=== PATIENT | male | born 1950 | race Caucasian/White ===

== ENCOUNTER 2024-04-14 17:57 | Inpatient (IN) | payer MEDICARE, OTHER, SELFPAY ==
--- NOTE | ~2024-04-14 | CT_ITS ---
CLINICAL HISTORY: epigastric pain CT abdomen and pelvis with contrast Comparison: None Findings: No consolidation or effusion. There is a small right renal cyst and small left renal cysts are also noted. Stomach is distended with fluid and there is suspected edema/inflammation in the gastric antrum and pyloric region. The patient is status post right anterior abdominal wall and right inguinal hernia repair. There is an enlarged prostate. There is mild bladder wall thickening. No acute fracture. IMPRESSION: 1. Stomach is greatly distended with fluid and there are apparent inflammatory changes / edema related to the antral and pyloric regions. Partial gastric outlet obstruction is suspected. Consider peptic ulcer disease. Can not exclude gastroparesis. 2. Enlarged prostate with bladder wall thickening. Findings may related to chronic outlet obstruction. Cystitis is not excluded. This document has been electronically signed by: Eligio Nash MD on 04/14/2024 23:03:22
--- NOTE | ~2024-04-14 | XR_ITS ---
CLINICAL HISTORY: NGT confirmation 1 view chest x-ray Comparison: None Findings: The NG tube appears adequately positioned. Mild interstitial prominence. No effusion. No pneumothorax. No acute fracture. IMPRESSION: Adequately positioned NG tube. Lungs exhibit interstitial prominence, nonspecific. This document has been electronically signed by: Edgar James MD on 04/15/2024 02:11:55
[2024-04-14 18:07] VITALS: BP 125/81; PULSE 78; RESP 18; TEMP 36.4; O2SAT 100; BMI 22.4
--- NOTE | 2024-04-14 18:13 | ED.GENADULT ---
HPI - General Adult General Chief complaint: Abdominal Pain Stated complaint: abd pain ,vomiting Time Seen by Provider: 04/14/24 21:29 Related Data Allergies Allergy/AdvReac Type Severity Reaction Status Date / Time No Known Allergies Allergy Verified 04/14/24 18:14 [facility] Social History Social History Advance Directives: No Advance Directives Information Provided: No Do you have a plan to hurt others: No Plan Physical Exam ED Vital Signs: Vital Signs - 24 hr 04/14/24 18:07 04/14/24 23:21 Temperature 97.6 F Pulse Rate 78 62 Respiratory Rate 18 16 Blood Pressure 125/81 126/63 Pulse Oximetry 100 99 Oxygen Delivery Method Room Air Room Air BMI result Body Mass Index 22.4 Course Course Course Narrative: RME, this is a rapid medical exam performed by Juan Campos please refer to primary provider for complete H&P- 73 year old male presents for evaluation of burning upper abdominal pain over the alst couple of weeks. His pain is worsening and he vomited today. He does have a history of GERD per his son. Plan for labs and an ekg Medications Administered Discontinued Medications Generic Name Dose Route Start Last Admin Trade Name Freq PRN Reason Stop Dose Admin Sodium Chloride 1,000 mls @ 999 mls/hr 04/14/24 21:45 04/14/24 23:14 Ns IV 04/14/24 22:45 Infused .Q1H1M YUDY Infusion Iohexol 85 ml 04/14/24 22:05 04/14/24 22:06 Iohexol 350 Mg/Ml 100 Ml Infus..Btl IV 04/14/24 22:06 85 ml ONCE ONE Administration Ketorolac Tromethamine 15 mg 04/14/24 21:38 04/14/24 21:53 Ketorolac Tromethamine 15 Mg/Ml Vial IVPUSH 04/14/24 21:39 15 mg ONCE ONE Administration Ondansetron HCl 4 mg 04/14/24 21:38 04/14/24 21:53 Ondansetron Hcl 4 Mg/2 Ml Vial IVPUSH 04/14/24 21:39 4 mg ONCE ONE Administration Pantoprazole Sodium 80 mg 04/14/24 23:09 04/14/24 23:26 Pantoprazole Sodium 40 Mg/10 Ml Vial IVPUSH 04/14/24 23:10 80 mg ONCE ONE Administration Medical Decision Making Lab Data 04/14/24 18:23 04/14/24 18:23 Labs: Lab Results 04/14/24 Range/Units 18:23 WBC 9.7 (4.8-10.8) X10*3/uL RBC 4.83 (4.60-5.80) X10*6/uL Hgb 13.9 L (14.0-18.0) g/dl Hct 40.3 L (42.0-52.0) % MCV 83.4 (80.0-98.0) fL MCH 28.8 (27.0-33.0) pg MCHC 34.5 (31.0-36.0) g/dl RDW 12.0 (11.0-16.0) % Plt Count 173 (160-400) X10*3/uL MPV 9.7 (9.4-12.4) fL Immature Gran % (Auto) 0.5 H (0.0-0.4) % Neut % (Auto) 87.7 H (45-73) % Lymph % (Auto) 8.0 L (20-40) % [place] % (Auto) 3.7 (2-11) % Eos % (Auto) 0.0 (0-4) % Baso % (Auto) 0.1 (0-2) % Lymph # (Auto) 0.8 L (1.2-4.9) X10*3/uL [place] # (Auto) 0.4 (0.1-1.2) X10*3/uL Eos # (Auto) 0.0 (0.0-0.4) X10*3/uL Baso # (Auto) 0.0 (0.0-0.2) X10*3/uL Abs Immat Gran (auto) 0.05 H (0.00-0.03) X10*3/uL Absolute Neuts (auto) 8.5 H (2.0-8.3) x10*3/uL Absolute Nucleated RBC 0.000 (0.0-0.012) X10*3/uL Nucleated RBC % (auto) 0.0 (0.0-0.2) /100WBC Sodium 135 (135-145) mmol/L Potassium 3.7 (3.3-5.1) mmol/L Chloride 100 (96-108) mmol/L Carbon Dioxide 29 (22-29) mmol/L Anion Gap 10 L (12-20) BUN 14 (9-16) mg/dL Creatinine 0.86 (0.5-1.4) mg/dL Estim Creat Clear Calc 82.1 Estimated GFR > 60 Random Glucose 147 H (60-115) mg/dL Calcium 9.2 (8.4-10.2) mg/dL Total Bilirubin 0.7 (0.0-1.0) mg/dL AST 15 (5-37) U/L ALT 13 (0-40) U/L Alkaline Phosphatase 70 (39-117) U/L Troponin I High Sens < 2.7 (<3.5-35.0) ng/L Total Protein 6.8 (6.5-8.0) g/dL Albumin 4.2 (3.5-5.0) g/dL Lipase 46 (8-78) U/L Discharge Plan Discharge Clinical Impression: Gastric outlet obstruction Patient Disposition: Admitted As Inpatient Print Language: Luxembourgish
--- NOTE | 2024-04-14 18:14 | ECG_ITS ---
Test Reason : pain Blood Pressure : */* mmHG Vent. Rate : 66 BPM Atrial Rate : 66 BPM P-R Int : 156 ms QRS Dur : 88 ms QT Int : 400 ms P-R-T Axes : 84 64 80 degrees QTcB Int : 419 ms Sinus rhythm with Premature atrial complexes Minimal voltage criteria for LVH, may be normal variant ( Sokolow-Colón ) Borderline ECG No previous ECGs available Referred By: Norman Campos Electronically Signed By: SHANNON GUY MD
[2024-04-14 18:27] LABS: MANUAL DIFF FLAG NO
[2024-04-14 18:35] LABS: Basophils Percent Auto 0.1 % (0-2); Hematocrit 40.3 % (42.0-52.0); Hemoglobin 13.9 g/dl (14.0-18.0); Imm Gran Abs Auto 0.05 X10*3/uL (0.00-0.03); Imm Gran Pct Auto 0.5 % (0.0-0.4); Lymphocytes Absolute Auto 0.8 X10*3/uL (1.2-4.9); Mean Corpuscular HGB Conc 34.5 g/dl (31.0-36.0); Mean Corpuscular Hemoglobin 28.8 pg (27.0-33.0); Mean Corpuscular Volume 83.4 fL (80.0-98.0); Mean Platelet Volume 9.7 fL (9.4-12.4); Monocytes Absolute Auto 0.4 X10*3/uL (0.1-1.2); Monocytes Percent Auto 3.7 % (2-11); Neutrophils Absolute Auto 8.5 x10*3/uL (2.0-8.3); Neutrophils Percent Auto 87.7 % (45-73); Platelet Count 173 X10*3/uL (160-400); Red Blood Count 4.83 X10*6/uL (4.60-5.80); White Blood Count 9.7 X10*3/uL (4.8-10.8)
[2024-04-14 18:44] LABS: Alanine Aminotransferase 13 U/L (0-40); Albumin Level 4.2 g/dL (3.5-5.0); Alkaline Phosphatase 70 U/L (39-117); Anion Gap 10 (12-20); Aspartate Amino Transferase 15 U/L (5-37); Bilirubin Total 0.7 mg/dL (0.0-1.0); Blood Urea Nitrogen 14 mg/dL (9-16); Calcium 9.2 mg/dL (8.4-10.2); Carbon Dioxide 29 mmol/L (22-29); Chloride 100 mmol/L (96-108); Creatinine Clr Calc Pharmacy 82.1; Estimated Glomerular Filt Rate > 60; Glucose Random 147 mg/dL (60-115); Lipase 46 U/L (8-78); Potassium 3.7 mmol/L (3.3-5.1); Sodium 135 mmol/L (135-145); Total Protein 6.8 g/dL (6.5-8.0)
[2024-04-14 18:55] LABS: Troponin-I High Sensitivity < 2.7 ng/L (<3.5-35.0)
--- NOTE | 2024-04-14 21:41 | ED.ABDPAIN ---
HPI - Abdominal Pain General Chief Complaint: Abdominal Pain Stated Complaint: abd pain ,vomiting Time Seen by Provider: 04/14/24 21:29 History of Present Illness HPI narrative: Patient is a 73-year-old male presents today with having epigastric pain. History of hernia repair 10-20 years ago. No other abdominal surgery. No cough no congestion no upper respiratory symptoms. Symptom has been ongoing for couple weeks. Now having nausea vomiting today. Pain goes to the back. No history of diabetes, hypertension, high cholesterol. Does not smoke. No heart attack before. Patient from home. Related Data Allergies Allergy/AdvReac Type Severity Reaction Status Date / Time No Known Allergies Allergy Verified 04/14/24 18:14 Review of Systems Review of Systems Positive nausea vomiting positive abdominal pain Yes all other systems are reviewed and are negative [facility] Social History Social History Advance Directives: No Advance Directives Information Provided: No Do you have a plan to hurt others: No Plan Physical Exam ED Vital Signs: Vital Signs - 24 hr 04/14/24 18:07 04/14/24 23:21 Temperature 97.6 F Pulse Rate 78 62 Respiratory Rate 18 16 Blood Pressure 125/81 126/63 Pulse Oximetry 100 99 Oxygen Delivery Method Room Air Room Air BMI result Body Mass Index 22.4 Appearance: Alert. Oriented X3. No acute distress. Eyes: Pupils equal, round and reactive to light. ENT: Pharynx normal. Neck: Normal inspection. Neck supple. No lymph nodes noted. No crepitus CVS: Normal heart rate and rhythm. Pulses normal. Normal S1 and S2 Respiratory: No respiratory distress. Breath sounds normal. No Wheezing. No rales Abdomen: Soft and nontender. No rigidity. No distention. good BS x4 Skin: Skin warm and dry. Normal skin color. Normal skin turgor. Extremities: No lower extremity edema. Neurovascular intact to all extremities. No Lacerations. No Rash Neuro: Oriented X 3. No motor deficit. No sensory deficit. Moving all extermities. No slurred speech Medical Decision Making Medical Decision Making MDM Narrative: Patient is 73 years old presents today with having abdominal pain epigastric pain going to the back. Nausea. CT scan of the abdomen was done. It showed no acute evidence of pancreatitis. It did show gastric outlet obstruction. Since the nausea medication Zofran and IV fluids the nausea has improved. Patient is not vomiting. White count is normal. Electrolytes unremarkable. Patient's lipase is normal. Discussed with surgery. [place] patient more appropriate to be on the medical service. Case discussed with the hospitalist team. Additional IV fluid was given. Patient to be admitted. Differential Diagnosis Differential Diagnoses: The differential diagnosis associated with the presentation includes Pancreatitis, ACS, biliary issue, obstruction Admission/Observation Consideration of admission/observation: Escalation of care including admission/observation considered Consult Healthcare Provider Management of the patient was discussed with: Hospitalist and Land Management Supervisor (Surgery) Lab Data MDM Lab Attestation statement: I reviewed the patient's lab results. 04/14/24 18:23 04/14/24 18:23 Labs: Lab Results 04/14/24 Range/Units 18:23 WBC 9.7 (4.8-10.8) X10*3/uL RBC 4.83 (4.60-5.80) X10*6/uL Hgb 13.9 L (14.0-18.0) g/dl Hct 40.3 L (42.0-52.0) % MCV 83.4 (80.0-98.0) fL MCH 28.8 (27.0-33.0) pg MCHC 34.5 (31.0-36.0) g/dl RDW 12.0 (11.0-16.0) % Plt Count 173 (160-400) X10*3/uL MPV 9.7 (9.4-12.4) fL Immature Gran % (Auto) 0.5 H (0.0-0.4) % Neut % (Auto) 87.7 H (45-73) % Lymph % (Auto) 8.0 L (20-40) % [place] % (Auto) 3.7 (2-11) % Eos % (Auto) 0.0 (0-4) % Baso % (Auto) 0.1 (0-2) % Lymph # (Auto) 0.8 L (1.2-4.9) X10*3/uL [place] # (Auto) 0.4 (0.1-1.2) X10*3/uL Eos # (Auto) 0.0 (0.0-0.4) X10*3/uL Baso # (Auto) 0.0 (0.0-0.2) X10*3/uL Abs Immat Gran (auto) 0.05 H (0.00-0.03) X10*3/uL Absolute Neuts (auto) 8.5 H (2.0-8.3) x10*3/uL Absolute Nucleated RBC 0.000 (0.0-0.012) X10*3/uL Nucleated RBC % (auto) 0.0 (0.0-0.2) /100WBC Sodium 135 (135-145) mmol/L Potassium 3.7 (3.3-5.1) mmol/L Chloride 100 (96-108) mmol/L Carbon Dioxide 29 (22-29) mmol/L Anion Gap 10 L (12-20) BUN 14 (9-16) mg/dL Creatinine 0.86 (0.5-1.4) mg/dL Estim Creat Clear Calc 82.1 Estimated GFR > 60 Random Glucose 147 H (60-115) mg/dL Calcium 9.2 (8.4-10.2) mg/dL Total Bilirubin 0.7 (0.0-1.0) mg/dL AST 15 (5-37) U/L ALT 13 (0-40) U/L Alkaline Phosphatase 70 (39-117) U/L Troponin I High Sens < 2.7 (<3.5-35.0) ng/L Total Protein 6.8 (6.5-8.0) g/dL Albumin 4.2 (3.5-5.0) g/dL Lipase 46 (8-78) U/L Independent Interpretation I performed an independent interpretation of an: EKG (Sinus heart rate is 60 SD QRS QTC normal no acute ST segment elevation) Radiology Impression Discussion of test interpretation with radiology: I have reviewed the radiologist's reading. Independent Historian Clinical information obtained from an independent historian. History obtained from or confirmed by: Other (Additional history obtained through patient's son) Chronic Conditions History of hernia surgery done in the past Medications Administered Discontinued Medications Generic Name Dose Route Start Last Admin Trade Name Freq PRN Reason Stop Dose Admin Sodium Chloride 1,000 mls @ 999 mls/hr 04/14/24 21:45 04/14/24 23:14 Ns IV 04/14/24 22:45 Infused .Q1H1M YUDY Infusion Iohexol 85 ml 04/14/24 22:05 04/14/24 22:06 Iohexol 350 Mg/Ml 100 Ml Infus..Btl IV 04/14/24 22:06 85 ml ONCE ONE Administration Ketorolac Tromethamine 15 mg 04/14/24 21:38 04/14/24 21:53 Ketorolac Tromethamine 15 Mg/Ml Vial IVPUSH 04/14/24 21:39 15 mg ONCE ONE Administration Ondansetron HCl 4 mg 04/14/24 21:38 04/14/24 21:53 Ondansetron Hcl 4 Mg/2 Ml Vial IVPUSH 04/14/24 21:39 4 mg ONCE ONE Administration Pantoprazole Sodium 80 mg 04/14/24 23:09 04/14/24 23:26 Pantoprazole Sodium 40 Mg/10 Ml Vial IVPUSH 04/14/24 23:10 80 mg ONCE ONE Administration Discharge Plan Discharge Clinical Impression: Gastric outlet obstruction Patient Disposition: Admitted As Inpatient Print Language: Bruneian
[2024-04-14] MEDS: Ketorolac Tromethamine 15 MG/ML VIAL IVPUSH (21:53)
[2024-04-14] MEDS: 0.9 % Sodium Chloride 1,000 ML 999 ML IV (21:53)
[2024-04-14] MEDS: ondansetron HCL 4 MG/2 ML VIAL IVPUSH (21:53)
[2024-04-14] MEDS: iohexoL 350 MG/ML 100 ML INFUS..BTL 85 ML IV (22:06)
[2024-04-14 23:21] VITALS: BP 126/63; PULSE 62; RESP 16; O2SAT 99
[2024-04-14] MEDS: Pantoprazole Sodium 40 MG/10 ML VIAL 80 MG IVPUSH (23:26)
[2024-04-15] VITALS (10 sets, daily range): BP systolic 99–135; BP diastolic 56–85; PULSE 57–74; RESP 16–20; TEMP 35.9–37.6; O2SAT 96–100; BMI 22.4
--- NOTE | 2024-04-15 02:54 | P.HPHOSP_ITS ---
History of Present Illness Date of Service: 04/15/24 Attending physician on admission: Shanthi Trevino Chief Complaint: Abdominal pain Tomás Mendoza is a 73 years old man with no significant past medical history presents to the emergency department complaining of epigastric pain that started yesterday associated with multiple episodes of nausea and vomiting. He described the pains at very intense without radiations. He reported abdominal distention. He denied diarrhea, fever or chills. Did not report any headache, dizziness or palpitations. He did not report weight lost or poor appetite. He did not report pain with swallowing. He does not take medications for any chronic disease. Abdominal surgery history significant for bilateral inguinal herniorrhaphies. Denied tobacco smoking, illicit drug use or alcohol abuse. In the ED, he was found to blood workup including CBC, CMP, lipase and troponin are essentially unremarkable. Abdomen and pelvis CT scan with IV contrast showed findings possible secondary to gastric obstruction and enlarged prostate with bladder wall thickening. ECG showed normal sinus rhythm with PACs and no acute ischemic change this. ED Tx: NS 1 L bolus, Zofran 4 mg IV, ketorolac 15 mg IV, pantoprazole 80 mg IV Review of Systems 2 Review of Systems: All 12 systems were reviewed and normal except as noted in HPI. PMFSH Social History Advance Directives: No Advance Directives Information Provided: No Do you have a plan to hurt others: No Plan Meds Allergies Allergy/AdvReac Type Severity Reaction Status Date / Time No Known Allergies Allergy Verified 04/14/24 18:14 Active Medications: Current Medications Lactated Ringer's (Lr) 1,000 mls @ 100 mls/hr IVCONT .Q10H YUDY Stop: 04/16/24 02:29 Potassium Chloride/Dextrose/Sod Cl (Kcl 40 Meq In 5% Dex/0.9% Sod) 40 meq in 1,000 mls @ 125 mls/hr IVCONT .Q8H YUDY Ondansetron HCl (Ondansetron Hcl 4 Mg/2 Ml Vial) 4 mg IVPUSH Q8H PRN PRN Reason: Nausea and Vomiting Pantoprazole Sodium (Pantoprazole Sodium 40 Mg/10 Ml Vial) 40 mg IVPUSH BID [facility] Sodium Chloride (0.9 % Sodium Chloride Flush 3 Ml Syringe) 3 ml IVFLUSH QSHIFT [facility] Physical Exam 2 Vital Signs and Narrative: Vital Signs: Last Vital Signs Temp 98.4 F 04/15/24 02:01 Pulse 57 04/15/24 02:01 Resp 16 04/15/24 02:01 BP 120/69 04/15/24 02:01 Pulse Ox 98 04/15/24 02:01 O2 Del Method Room Air 04/15/24 02:01 BMI result Body Mass Index 22.4 Constitutional - Awake and Alert, No apparent distress. Pleasant. Cooperative. HEENT - PERRL, EOMI. NG tube in place (canister has pink colored gastric constent). No lymphadenopathies noted. Heart - RRR, No murmurs Lungs - Normal lung expansion, Normal respiratory effort, No respiratory distress, CTA bilaterally Abdomen - NT / ND; decreased BS; No rebound or guarding. Did not appreciate succussion splash. Extremities - no calf tenderness bilaterally, no swelling Musculoskeletal - Normal inspection, normal ROM Skin - Warm/Dry. No pallor. No jaundice. Neurological - Alert & oriented x3. No focal weakness grossly noted. Normal speech. Psychological - Appropriate affect Results Labs 04/14/24 18:23 04/14/24 18:23 Labs: Laboratory Results - last 24 hr 04/14/24 18:23 MCV 83.4 MCH 28.8 MCHC 34.5 RDW 12.0 Plt Count 173 MPV 9.7 Immature Gran % (Auto) 0.5 H Neut % (Auto) 87.7 H Lymph % (Auto) 8.0 L [place] % (Auto) 3.7 Eos % (Auto) 0.0 Baso % (Auto) 0.1 Lymph # (Auto) 0.8 L [place] # (Auto) 0.4 Eos # (Auto) 0.0 Baso # (Auto) 0.0 Abs Immat Gran (auto) 0.05 H Absolute Neuts (auto) 8.5 H Absolute Nucleated RBC 0.000 Nucleated RBC % (auto) 0.0 Anion Gap 10 L Estim Creat Clear Calc 82.1 Estimated GFR > 60 Random Glucose 147 H Calcium 9.2 Total Bilirubin 0.7 AST 15 ALT 13 Alkaline Phosphatase 70 Troponin I High Sens < 2.7 Total Protein 6.8 Albumin 4.2 Lipase 46 Assessment and Plan (1) Gastric outlet obstruction: Status: Acute (2) Nausea and vomiting: Qualifiers: Vomiting type: unspecified Qualified Code(s): R11.2 - Nausea with vomiting, unspecified Status: Acute Plan Tomás Mendoza is a 73 y/o man admitted with: * Partial gastric outlet obstruction. Admit to hospitalist service. NPO. NG tube inserted in the ED for the compression, to intermittent suction. Start IV fluids: D5/0.9NS/40 KCl. Continue treatment with Protonix 40 mg IV twice daily. Continue antiemetic therapy. Avoid NSAIDs. Gastroenterology consult for possible EGD. DVT prophylaxis: Compression boots only for now as they might need endoscopic procedure. Code status: Full Patient will need hospitalization for at least 2 midnights for gastric outlet obstruction treatment with decompression using NGT to intermittent suction, IV anti-acid medication and evaluation by subspecialty for possible procedure. Quality Stroke Does the patient have a stroke diagnosis?: No VTE Prior VTE?: No VTE Risk Level:: Medical - moderate - high VTE Device Contraindication: N/A - Device Ordered VTE Drug Contraindication: Treatment Not Indicated
--- NOTE | 2024-04-15 03:24 | MHC.EDTECH ---
Called GI office for doctor Hudson they are instructed not to take routine consult requests till after 0700 even if the Doctor is requested, by a provider
[2024-04-15] MEDS: Lactated Ringers 1,000 ML 100 ML IVCONT (03:34)
[2024-04-15] MEDS: KCl 20 mEq in 5 % Dex/Lact Rin 20 MEQ/1,000 ML IV.SOLN 125 MEQ IVCONT (04:28)
[2024-04-15 04:29] LABS: GASOB Int Neg Ctl Valid YES; GASOB Int Pos Ctl Valid YES; Occult Blood Gastric POSITIVE (NEG)
[2024-04-15 04:30] LABS: GASOB Lot 20632
[2024-04-15 05:08] LABS: MANUAL DIFF FLAG NO
[2024-04-15 05:11] LABS: Basophils Percent Auto 0.2 % (0-2); Eosinophils Percent Auto 0.3 % (0-4); Hematocrit 36.7 % (42.0-52.0); Hemoglobin 12.7 g/dl (14.0-18.0); Imm Gran Abs Auto 0.06 X10*3/uL (0.00-0.03); Imm Gran Pct Auto 0.6 % (0.0-0.4); Lymphocytes Absolute Auto 1.4 X10*3/uL (1.2-4.9); Lymphocytes Percent Auto 14.4 % (20-40); Mean Corpuscular HGB Conc 34.6 g/dl (31.0-36.0); Mean Corpuscular Hemoglobin 28.9 pg (27.0-33.0); Mean Corpuscular Volume 83.6 fL (80.0-98.0); Mean Platelet Volume 10.6 fL (9.4-12.4); Monocytes Absolute Auto 0.9 X10*3/uL (0.1-1.2); Monocytes Percent Auto 8.9 % (2-11); Neutrophils Absolute Auto 7.4 x10*3/uL (2.0-8.3); Neutrophils Percent Auto 75.6 % (45-73); Platelet Count 162 X10*3/uL (160-400); Red Blood Count 4.39 X10*6/uL (4.60-5.80); Red Cell Distribution Width 12.1 % (11.0-16.0); White Blood Count 9.8 X10*3/uL (4.8-10.8)
[2024-04-15 05:35] LABS: Anion Gap 11 (12-20); Blood Urea Nitrogen 18 mg/dL (9-16); Calcium 8.3 mg/dL (8.4-10.2); Carbon Dioxide 23 mmol/L (22-29); Chloride 104 mmol/L (96-108); Creatinine Clr Calc Pharmacy 90.6; Estimated Glomerular Filt Rate > 60; Glucose Random 105 mg/dL (60-115); Potassium 3.9 mmol/L (3.3-5.1); Sodium 134 mmol/L (135-145)
--- NOTE | 2024-04-15 07:47 | P.CONGS_ITS ---
History of Present Illness Consult details Consult date: 04/15/24 Narrative: Patient was a 73 relatively healthy year old man who presents here with when he states has been progressively worsening nausea and vomiting. He had nonspecific epigastric complaints over the last few weeks time. He is now unable to tolerate his diet and has had progression of the symptoms and presents here for further evaluation. His weight, energy, and appetite have been stable. He does not recall ever having any specific ulcer diagnosis. Said 10 years ago he had nonspecific epigastric complaints but never sought workup for this. He has never had upper endoscopy or colonoscopy in the past. No prior abdominal surgeries. Workup including CT scan demonstrates finding of gastric outlet obstruction of ill- defined etiology. Chart was reviewed and patient evaluated [facility] Social History Social History Patient Tobacco Use Status: Never used Tobacco Advance Directives: No Advance Directives Information Provided: No Do you have a plan to hurt others: No Plan Nutrition Risks: Acute nausea or vomiting x1 week Meds Allergies Allergy/AdvReac Type Severity Reaction Status Date / Time No Known Allergies Allergy Verified 04/14/24 18:14 Active Medications: Current Medications Potassium Cl/Dextrose/Lact Ringer's (Kcl 20 Meq In 5 % Dex/Lact Rin) 20 meq in 1,000 mls @ 125 mls/hr IVCONT .Q8H [facility] Last Admin: 04/15/24 04:28 Dose: 125 mls/hr Morphine Sulfate (Morphine Sulfate 2 Mg/Ml Cartridge) 2 mg IVPUSH Q6H PRN; Protocol PRN Reason: Pain, Severe (Pain Scale 7-10) Ondansetron HCl (Ondansetron Hcl 4 Mg/2 Ml Vial) 4 mg IVPUSH Q8H PRN PRN Reason: Nausea and Vomiting Pantoprazole Sodium (Pantoprazole Sodium 40 Mg/10 Ml Vial) 40 mg IVPUSH BID [facility] Sodium Chloride (0.9 % Sodium Chloride Flush 3 Ml Syringe) 3 ml IVFLUSH QSHIFT [facility] Physical Exam 2 Vital Signs: Vital Signs: Last Vital Signs Temp 98.4 F 04/15/24 02:01 Pulse 68 04/15/24 04:31 Resp 18 04/15/24 04:31 BP 114/63 04/15/24 04:31 Pulse Ox 96 04/15/24 04:31 O2 Del Method Room Air 04/15/24 04:31 BMI result Body Mass Index 22.4 Const: Other: Patient was NG tube in with minimal output GI: Other: Abdomen is soft. Nontender. No obvious hernias. Results Labs 04/15/24 04:29 04/15/24 04:29 Labs: Abnormal lab results 04/14/24 04/15/24 Range/Units 18:23 04:29 RBC 4.39 L (4.60-5.80) X10*6/uL Hgb 13.9 L 12.7 L (14.0-18.0) g/dl Hct 40.3 L 36.7 L (42.0-52.0) % Immature Gran % (Auto) 0.5 H 0.6 H (0.0-0.4) % Neut % (Auto) 87.7 H 75.6 H (45-73) % Lymph % (Auto) 8.0 L 14.4 L (20-40) % Lymph # (Auto) 0.8 L (1.2-4.9) X10*3/uL Abs Immat Gran (auto) 0.05 H 0.06 H (0.00-0.03) X10*3/uL Absolute Neuts (auto) 8.5 H (2.0-8.3) x10*3/uL Sodium 134 L (135-145) mmol/L Anion Gap 10 L 11 L (12-20) BUN 18 H (9-16) mg/dL Random Glucose 147 H (60-115) mg/dL Calcium 8.3 L D (8.4-10.2) mg/dL Short CBC 04/14/24 04/15/24 Range/Units 18:23 04:29 WBC 9.7 9.8 (4.8-10.8) X10*3/uL Hgb 13.9 L 12.7 L (14.0-18.0) g/dl Hct 40.3 L 36.7 L (42.0-52.0) % Plt Count 173 162 (160-400) X10*3/uL BMP 04/14/24 04/15/24 18:23 04:29 Sodium 135 134 L Potassium 3.7 3.9 Chloride 100 104 Carbon Dioxide 29 23 BUN 14 18 H Creatinine 0.86 0.78 Calcium 9.2 8.3 L D Liver Function 04/14/24 Range/Units 18:23 Total Bilirubin 0.7 (0.0-1.0) mg/dL AST 15 (5-37) U/L ALT 13 (0-40) U/L Alkaline Phosphatase 70 (39-117) U/L Albumin 4.2 (3.5-5.0) g/dL All other labs normal. Assessment and Plan (1) Gastric outlet obstruction: Status: Acute (2) Nausea and vomiting: Qualifiers: Vomiting type: unspecified Qualified Code(s): R11.2 - Nausea with vomiting, unspecified Status: Acute Plan Gastric outlet obstruction of unknown etiology. Patient was awaiting GI consultation. Patient may require upper endoscopy , but will defer to GI team. Continue NG tube, IV hydration, follow I's and O's. To follow with you. Procedures Date of Service Date of Service: 04/15/24
[2024-04-15] MEDS: Pantoprazole Sodium 40 MG/10 ML VIAL IVPUSH ×2 (08:08→20:39)
--- NOTE | 2024-04-15 08:41 | PHA.MEDREC ---
Addendum entered by Hermelinda Springer [facility] 04/15/24 08:42: reviewed Original Note: Pharmacy Consult ? Medication Reconciliation Pharmacy has completed the medication reconciliation. Spoke with patient and he stated he is not taking any medications at this time.
--- NOTE | 2024-04-15 11:44 | MHC.SHP ---
Pre-Procedural Eval Section A - 24 Hr Update-Section A only Date of Service: 04/15/24 The patient is an INPATIENT: Yes Changes since office visit: No Cold of Flu in the past 2 weeks, No New Medical Problems, No Changes in Medication and No Patient answered all questions The patient has been examined within 24 hours of the surgical procedure. The History & Physical has been completed within 30 days and I have reviewed it.: No Section B - Complete if H&P > 30 days Chief Complaint: gastric outlet obstruction Allergies: Allergies Allergy/AdvReac Type Severity Reaction Status Date / Time No Known Allergies Allergy Verified 04/14/24 18:14 Plan I have reviewed the history and physical and performed a pertinent physical examination on my patient. No changes have occurred unless specified. Time Spent With Patient Time: Total time managing care of this patient today ____ minutes.
--- NOTE | 2024-04-15 11:45 | PM.EVENT ---
Event Note Date of Service: 04/15/24 Event Note: GI Egd planned for today to evaluate CT findings, he is aware of risks and benefits and angrees to proceed. Time Spent With Patient Time: Total time managing care of this patient today ____ minutes.
--- NOTE | 2024-04-15 13:43 | P.CONAN_ITS ---
[facility] Active Problems Active Problems: All Active Problems Nausea and vomiting (Acute) Gastric outlet obstruction (Acute) Surgical History Surgical History History of facial surgery History of hernia surgery History of Problems with Anesthesia: No Social History Social History Are you a primary child care center assistant director to a significant other at home: No Do you presently have visiting nurse or other home services: No Patient Tobacco Use Status: Never used Tobacco Use of substances other than those prescribed or required for medical reasons: No Have you been hit, kicked, punched, or otherwise hurt by someone within the past year? If so, by whom?: No Are you DNR?: No Advance Directives: No Advance Directives Information Provided: No Advance Directives on File: No Do you have a plan to hurt others: No Plan Recently lost weight without trying: No How much weight loss: Not applicable Eating poorly because of decreased appetite: No Nutrition screen score: 0 Nutrition Risks: No Nutritional Risk Poor oral hygiene: Yes (margarette) service: No Meds Allergies Allergy/AdvReac Type Severity Reaction Status Date / Time No Known Allergies Allergy Verified 04/15/24 14:01 Active Medications: Current Medications Potassium Cl/Dextrose/Lact Ringer's (Kcl 20 Meq In 5 % Dex/Lact Rin) 20 meq in 1,000 mls @ 125 mls/hr IVCONT .Q8H [facility] Last Admin: 04/15/24 04:28 Dose: 125 mls/hr Morphine Sulfate (Morphine Sulfate 2 Mg/Ml Cartridge) 2 mg IVPUSH Q6H PRN; Protocol PRN Reason: Pain, Severe (Pain Scale 7-10) Ondansetron HCl (Ondansetron Hcl 4 Mg/2 Ml Vial) 4 mg IVPUSH Q6H PRN PRN Reason: Nausea and Vomiting Pantoprazole Sodium (Pantoprazole Sodium 40 Mg/10 Ml Vial) 40 mg IVPUSH BID [facility] Last Admin: 04/15/24 08:08 Dose: 40 mg Sodium Chloride (0.9 % Sodium Chloride Flush 3 Ml Syringe) 3 ml IVFLUSH QSHIFT [facility] Last Admin: 04/15/24 08:08 Dose: Not Given Tamsulosin HCl (Tamsulosin Hcl 0.4 Mg Capsule) 0.4 mg PO DAILY [facility] Last Admin: 04/15/24 08:35 Dose: Not Given Home Medications ?Medication ?Instructions ?Recorded ?Confirmed ?Last Taken ?Type No Known Home Meds 04/15/24 04/15/24 Unknown History Exam Height,Weight and Vital Signs: Height 6 ft Weight 74.843 kg Last Vital Signs Temp 98.6 F 04/15/24 08:00 Pulse 67 04/15/24 08:00 Resp 17 04/15/24 08:00 BP 113/64 04/15/24 08:00 Pulse Ox 98 04/15/24 08:00 O2 Del Method Room Air 04/15/24 08:00 Pertinent Lab Results Pertinent Lab Results: Laboratory Tests 04/14/24 04/15/24 04/15/24 18:23 04:10 04:29 WBC 9.7 9.8 RBC 4.83 4.39 L Hgb 13.9 L 12.7 L Hct 40.3 L 36.7 L MCV 83.4 83.6 MCH 28.8 28.9 MCHC 34.5 34.6 RDW 12.0 12.1 Plt Count 173 162 MPV 9.7 10.6 Immature Gran % (Auto) 0.5 H 0.6 H Neut % (Auto) 87.7 H 75.6 H Lymph % (Auto) 8.0 L 14.4 L [place] % (Auto) 3.7 8.9 Eos % (Auto) 0.0 0.3 Baso % (Auto) 0.1 0.2 Lymph # (Auto) 0.8 L 1.4 [place] # (Auto) 0.4 0.9 Eos # (Auto) 0.0 0.0 Baso # (Auto) 0.0 0.0 Abs Immat Gran (auto) 0.05 H 0.06 H Absolute Neuts (auto) 8.5 H 7.4 Absolute Nucleated RBC 0.000 0.000 Nucleated RBC % (auto) 0.0 0.0 Sodium 135 134 L Potassium 3.7 3.9 Chloride 100 104 Carbon Dioxide 29 23 Anion Gap 10 L 11 L BUN 14 18 H Creatinine 0.86 0.78 Estim Creat Clear Calc 82.1 90.6 Estimated GFR > 60 > 60 Random Glucose 147 H 105 Calcium 9.2 8.3 L D Magnesium 2.0 Total Bilirubin 0.7 AST 15 ALT 13 Alkaline Phosphatase 70 Troponin I High Sens < 2.7 Total Protein 6.8 Albumin 4.2 Lipase 46 Gastric Occult Blood POSITIVE Airway Mallampati Class: III TM Dist: >3cm Neck ROM: Full Loose/Missing/Broken Teeth: No Heart: RRR Lungs: CTA Assessment and Plan Assessment Anesthesia Assessment: Anesthesia Plan Discussed and Chart Reviewed Final Anesthetic Review History of Problems with Anesthesia: No NPO: Yes ASA Class: II Final Preanesthetic Review: Meds/Allgs Chart Reviewed, Consent Obtained/Reviewed and Anes Risks/Benef Reviewed Patient Risk: Low Procedure Risk: Intermediate Anesthetic Plan Anesthetic Plan: MAC: Disposition: Standard PACU
--- NOTE | 2024-04-15 13:56 | MHC.CM.PN ---
PT LIVES WITH 2 SONS HAS OWN RIDE HOME IS INDEPENDENT DC PLAN HOME NO SERVICES
--- NOTE | 2024-04-15 15:12 | PM.OP ---
Brief Operative Note Date of Service: 04/15/24 Pre-op diagnosis: gastric outlet obstruction Post-op diagnosis: same Procedure: EGD Surgeon: Hai Hudson MD Anesthesia: MAC Was an [employer] Advisor used for this Procedure?: No Estimated blood loss (mL): 5 Pathology: other Condition: stable Disposition: PACU
--- NOTE | 2024-04-15 15:13 | PM.EVENT ---
Event Note Date of Service: 04/15/24 Event Note: EGD note dictated erosive esophagitis retained food/liquid in stomach duodenal ulceration at bulb and second portion, with edema, inflammatory changes and luminal narrowing Scope could be advanced into the distal duodenum which was normal Biopsies taken from antrum and duodenum Rec iv ppi clear liquid trial f/u bx results Time Spent With Patient Time: Total time managing care of this patient today ____ minutes.
--- NOTE | 2024-04-15 15:43 | OP_ITS ---
DATE OF SERVICE: 04/15/2024 SURGEON: Hai Hudson MD INDICATIONS: Gastric outlet obstruction. PREOPERATIVE DIAGNOSIS: POSTOPERATIVE DIAGNOSIS: PROCEDURE PERFORMED: Upper endoscopy with biopsy. ESTIMATED BLOOD LOSS: COMPLICATIONS: ANESTHESIA: Monitored anesthesia care/general anesthesia. ASSISTANTS: SPECIMENS: DESCRIPTION OF PROCEDURE: A history and physical was performed. The risks and benefits of the procedure were explained to the patient and informed consent was obtained. The patient was placed in the left lateral decubitus position after the NG tube was removed by Dr. Guajardo. The Olympus video gastroscope was introduced into the esophagus and stomach. A moderately large amount of food was identified in the stomach. The scope was removed and the patient underwent endotracheal intubation for airway protection. The scope was reinserted into the esophagus, stomach, and duodenum. Examination was performed and the scope was removed. He tolerated the procedure well and was returned to recovery area in stable condition. FINDINGS: Esophagus: There was erosive esophagitis involving the distal esophagus over the last 5 cm. Stomach: The stomach showed undigested food material in the body. There was some associated liquid, which was suctioned. Antral biopsies were obtained. Duodenum: There was significant edema, erythema, and friability in the bulb and 2nd portion with ulceration involving 60% to 70% of the junction of the bulb and 2nd portion with luminal narrowing. Inflammatory changes were noted and the ulcer bases appeared clear. The scope was able to be advanced into the 2nd portion. Biopsies were obtained from the abnormal mucosa, where the ulcers were present. No definite malignancy was identified. IMPRESSION: Duodenal ulcer disease with gastric outlet obstruction. RECOMMENDATIONS: 1. Follow up the biopsy results. 2. Trial of clear liquids. 3. Continue high-dose proton pump inhibitor intravenously. MD JORDAN Soriano/CHAPIN / [id number]
[2024-04-15] MEDS: 0.9 % Sodium Chloride Flush 3 ML SYRINGE IVFLUSH (20:39)
--- NOTE | 2024-04-16 01:24 | CONS_ITS ---
DATE OF SERVICE: 04/15/2024 REFERRING PHYSICIAN: Shanthi Trevino MD REASON FOR CONSULTATION: Gastric outlet obstruction. HISTORY OF PRESENT ILLNESS: The patient is a pleasant 73-year-old man who was admitted to the hospital after presenting to the emergency department yesterday with complaints of abdominal pain and vomiting. He notes over the past several weeks he has had some upper abdominal distention and the day of admission came to the emergency room with complaints of abdominal and epigastric pain and associated vomiting that had been going on for several days prior to admission. The symptoms worsen the day of admission and he came to the emergency room. There was no hematemesis. He has also had some epigastric and substernal burning. He was evaluated in the emergency department with laboratory studies and imaging studies, which are reviewed. CT scanning is interpreted as showing abdominal distention with inflammatory changes and edema in the antrum and pyloric regions with partial gastric outlet obstruction. NG tube was placed and he had some improvement in his symptoms after suction overnight. He denies prior history of peptic ulcer disease. He does not drink alcohol excessively, smoke or take large amounts of NSAIDs. PAST MEDICAL HISTORY: He denies other medical or surgical illnesses. CURRENT MEDICATIONS: His current medication list is reviewed in the chart. ALLERGIES: THERE ARE NONE REPORTED. FAMILY HISTORY: This is negative for GI malignancy in the upper GI tract. SOCIAL HISTORY: There is no current tobacco, alcohol, or substance abuse. REVIEW OF SYSTEMS: SKIN: No pruritus. HEENT: Negative. CARDIOPULMONARY: No shortness of breath or chest pain. GASTROINTESTINAL: As above. GENITOURINARY: Negative. NEUROPSYCHIATRIC: Negative. PHYSICAL EXAMINATION: GENERAL: Shows a pleasant male, in no acute distress. VITAL SIGNS: Stable. SKIN: Anicteric. HEENT: Shows NG tube in place. NECK: Without lymphadenopathy or thyromegaly. LUNGS: Clear. HEART: Shows regular rate and rhythm. S1, S2. No murmur. ABDOMEN: Soft without focal masses or tenderness. Bowel sounds are present. No organomegaly is noted. EXTREMITIES: Without edema. LABORATORY DATA AND IMAGING STUDIES: Reviewed. IMPRESSION: Nausea and vomiting with abdominal pain. This appears consistent with a gastric outlet obstruction and possible causes include peptic ulcer disease, malignancy, and scarring from prior peptic disease. I discussed endoscopy with him including risks and benefits to which he agrees to proceed. I recommend continuing nasogastric suction, IV proton pump inhibitors and rehydration. Thanks for asking me to see him. I will follow him in the hospital with you. MD JORDAN Soriano/CHAPIN / [id number]
[2024-04-16 03:45] VITALS: BP 110/67; PULSE 67; RESP 16; TEMP 36.3; O2SAT 98
[2024-04-16 06:54] LABS: Hematocrit 38.1 % (42.0-52.0); Hemoglobin 12.6 g/dl (14.0-18.0)
[2024-04-16 06:57] LABS: Anion Gap 8 (12-20); Blood Urea Nitrogen 13 mg/dL (9-16); Calcium 8.7 mg/dL (8.4-10.2); Carbon Dioxide 29 mmol/L (22-29); Chloride 111 mmol/L (96-108); Creatinine Clr Calc Pharmacy 88.5; Estimated Glomerular Filt Rate > 60; Glucose Random 97 mg/dL (60-115); Potassium 4.3 mmol/L (3.3-5.1); Sodium 144 mmol/L (135-145)
[2024-04-16 07:32] VITALS: BP 105/55; PULSE 63; RESP 18; TEMP 36.1; O2SAT 99
[2024-04-16] MEDS: Tamsulosin HCL 0.4 MG CAPSULE PO (07:50)
[2024-04-16] MEDS: Pantoprazole Sodium 40 MG/10 ML VIAL IVPUSH ×2 (07:50→20:10)
[2024-04-16] MEDS: 0.9 % Sodium Chloride Flush 3 ML SYRINGE IVFLUSH ×2 (07:51→23:59)
--- NOTE | 2024-04-16 11:31 | P.PNGI_ITS ---
Subjective Subjective Date of Service: 04/16/24 Interval History: tolerating clear liquids no vomiting Critical Care Time (minutes): 0 Physical Exam 2 Vital Signs: Vital Signs: Last Vital Signs Temp 96.9 F 04/16/24 07:32 Pulse 63 04/16/24 07:32 Resp 18 04/16/24 07:32 BP 105/55 L 04/16/24 07:32 Pulse Ox 99 04/16/24 07:32 O2 Del Method Room Air 04/16/24 07:32 BMI result Body Mass Index 22.4 GI: Other: abdomen is soft and nontender Objective Data Labs 04/16/24 06:25 04/16/24 06:25 Labs: Laboratory Results - last 24 hr 04/16/24 06:25 Hgb 12.6 L Hct 38.1 L Sodium 144 Potassium 4.3 Chloride 111 H Carbon Dioxide 29 Anion Gap 8 L BUN 13 Creatinine 0.80 Estim Creat Clear Calc 88.5 Estimated GFR > 60 Random Glucose 97 Calcium 8.7 Procedures Date of Service Date of Service: 04/16/24 Progress Note: A&P Assessment and plan (1) Gastric outlet obstruction: Status: Acute Assessment and Plan: see below Plan labs reviewed continue clears today continue ppi discussed with patient and son Time Spent With Patient Time: Total time managing care of this patient today ____ minutes. Quality Stroke Does the patient have a stroke diagnosis?: No VTE Prior VTE?: No VTE Risk Level:: Medical - moderate - high VTE Device Contraindication: N/A - Device Ordered VTE Drug Contraindication: Treatment Not Indicated
[2024-04-16 11:41] VITALS: BP 100/60; PULSE 65; RESP 16; TEMP 36.6; O2SAT 100
--- NOTE | 2024-04-16 14:51 | HO.PM.IMPN ---
Subjective Subjective Date of Service: 04/16/24 Interval History: No acute events overnight. States doing well. Tolerating diet as GI outlined Review of Systems Denies chest pain Denies shortness of breath Denies nausea vomiting diarrhea Denies fever chills Physical Exam Vital Signs: Vital Signs: Last Vital Signs Temp 97.9 F 04/16/24 11:41 Pulse 65 04/16/24 11:41 Resp 16 04/16/24 11:41 BP 100/60 04/16/24 11:41 Pulse Ox 100 04/16/24 11:41 O2 Del Method Room Air 04/16/24 07:32 BMI result Body Mass Index 22.4 Const: Other: Awake alert no acute distress Resp: Other: Clear to auscultation bilaterally no rales rhonchi or wheezes Cardio: Other: No S4; positive S1-S2; no S3 murmurs rubs or gallops GI: Other: Soft nontender nondistended normoactive bowel sounds : Other: Soft nontender nondistended normoactive bowel sounds Extrem: Other: No edema bilaterally Objective Data Active Medications Morphine Sulfate (Morphine Sulfate 2 Mg/Ml Cartridge) 2 mg IVPUSH Q6H PRN; Protocol PRN Reason: Pain, Severe (Pain Scale 7-10) Naloxone HCl (Naloxone Hcl 0.4 Mg/Ml Vial) 0.04 mg IVPUSH Q5M PRN PRN Reason: Excessive sedation or RR < 8 Ondansetron HCl (Ondansetron Hcl 4 Mg/2 Ml Vial) 4 mg IVPUSH Q6H PRN PRN Reason: Nausea and Vomiting Pantoprazole Sodium (Pantoprazole Sodium 40 Mg/10 Ml Vial) 40 mg IVPUSH BID [facility] Last Admin: 04/16/24 07:50 Dose: 40 mg Documented By: HARSHA Sodium Chloride (0.9 % Sodium Chloride Flush 3 Ml Syringe) 3 ml IVFLUSH QSHIFT [facility] Last Admin: 04/16/24 07:51 Dose: 3 ml Documented By: HARSHA Tamsulosin HCl (Tamsulosin Hcl 0.4 Mg Capsule) 0.4 mg PO DAILY [facility] Last Admin: 04/16/24 07:50 Dose: 0.4 mg Documented By: HARSHA Labs 04/16/24 06:25 04/16/24 06:25 Labs: Laboratory Results - last 24 hr 04/16/24 06:25 Anion Gap 8 L Estim Creat Clear Calc 88.5 Estimated GFR > 60 Random Glucose 97 Calcium 8.7 Assessment and Plan (1) Gastric outlet obstruction: Status: Acute Plan Tomás Mendoza is a 73 y/o man admitted with: 1. Gastric outlet obstruction -endoscopy noted. -continue b.i.d. pantoprazole IV -advance diet as per GI Ambulatory Full code Patient will need ongoing hospitalization for gastric outlet obstruction treatment with IV PPI and slow advance of diet Quality Stroke Does the patient have a stroke diagnosis?: No VTE Prior VTE?: No VTE Risk Level:: Medical - moderate - high VTE Device Contraindication: N/A - Device Ordered VTE Drug Contraindication: Treatment Not Indicated
[2024-04-16 15:30] VITALS: BP 93/50; PULSE 77; RESP 16; TEMP 36.9; O2SAT 100
--- NOTE | 2024-04-16 15:43 | P.PNGS_ITS ---
Subjective Subjective Date of Service: 04/16/24 Interval history: Patient says that he is able to swallow juices and chicken broth today and doing much better. Less pain. He says however he is not able to do water. He underwent his endoscopy yesterday with multiple ulcerations noted in the esophagus as well as the duodenum but no true obvious malignant mass noted. Biopsies were taken by GI Physical Exam 2 Vital Signs: Vital Signs: Last Vital Signs Temp 98.5 F 04/16/24 15:30 Pulse 77 04/16/24 15:30 Resp 16 04/16/24 15:30 BP 93/50 L 04/16/24 15:30 Pulse Ox 100 04/16/24 15:30 O2 Del Method Room Air 04/16/24 15:30 BMI result Body Mass Index 22.4 GI: Other: Abdomen benign Objective Data Active Medications Morphine Sulfate (Morphine Sulfate 2 Mg/Ml Cartridge) 2 mg IVPUSH Q6H PRN; Protocol PRN Reason: Pain, Severe (Pain Scale 7-10) Naloxone HCl (Naloxone Hcl 0.4 Mg/Ml Vial) 0.04 mg IVPUSH Q5M PRN PRN Reason: Excessive sedation or RR < 8 Ondansetron HCl (Ondansetron Hcl 4 Mg/2 Ml Vial) 4 mg IVPUSH Q6H PRN PRN Reason: Nausea and Vomiting Pantoprazole Sodium (Pantoprazole Sodium 40 Mg/10 Ml Vial) 40 mg IVPUSH BID [facility] Last Admin: 04/16/24 07:50 Dose: 40 mg Documented By: HARSHA Sodium Chloride (0.9 % Sodium Chloride Flush 3 Ml Syringe) 3 ml IVFLUSH QSHIFT [facility] Last Admin: 04/16/24 07:51 Dose: 3 ml Documented By: HARSHA Tamsulosin HCl (Tamsulosin Hcl 0.4 Mg Capsule) 0.4 mg PO DAILY [facility] Last Admin: 04/16/24 07:50 Dose: 0.4 mg Documented By: HARSHA Labs 04/16/24 06:25 04/16/24 06:25 Labs: Laboratory Results - last 24 hr 04/16/24 06:25 Anion Gap 8 L Estim Creat Clear Calc 88.5 Estimated GFR > 60 Random Glucose 97 Calcium 8.7 Procedures Date of Service Date of Service: 04/16/24 Progress Note: A&P Assessment and plan (1) Gastric outlet obstruction: Status: Acute Assessment and Plan: 73-year-old male with some esophagitis duodenitis question etiology but edema causing partial gastric outlet obstruction improving now. At this point no surgical intervention is required or needed plan to just follow up on pathology and slowly advance his diet as tolerated. He understands and agrees with the above plan Time Spent With Patient Time: Total time managing care of this patient today ____ minutes. Quality Stroke Does the patient have a stroke diagnosis?: No VTE Prior VTE?: No VTE Risk Level:: Medical - moderate - high VTE Device Contraindication: N/A - Device Ordered VTE Drug Contraindication: Treatment Not Indicated
--- NOTE | 2024-04-16 19:02 | HO.POSTANES ---
Post Anesthesia Evaluation Post Anesthesia Evaluation Date of Service: 04/16/24 Vital Signs: Vital Signs Temp Pulse Resp BP Pulse Ox O2 Del Method 04/16/24 15:30 98.5 F 77 16 93/50 L 100 Room Air 04/16/24 11:41 97.9 F 65 16 100/60 100 04/16/24 07:32 96.9 F 63 18 105/55 L 99 Room Air Anesthesia: General Endotracheal-GETA Mental Status: Awake Pain Control: Satisfactory Nausea/Vomiting: None Hydration: Adequate Anesthesia-Related Issues: No Anes. Related Issues
[2024-04-16 20:00] VITALS: BP 113/54; PULSE 78; RESP 18; TEMP 36.4; O2SAT 100
[2024-04-16 23:31] VITALS: BP 99/57; PULSE 66; RESP 16; TEMP 36.8; O2SAT 98
[2024-04-17 04:00] VITALS: BP 94/55; PULSE 58; RESP 18; TEMP 36.6; O2SAT 97
[2024-04-17 07:26] VITALS: BP 96/60; PULSE 71; RESP 16; TEMP 36.4; O2SAT 96
[2024-04-17] MEDS: 0.9 % Sodium Chloride Flush 3 ML SYRINGE IVFLUSH ×3 (07:59→20:27)
[2024-04-17] MEDS: Tamsulosin HCL 0.4 MG CAPSULE PO (07:59)
[2024-04-17] MEDS: Pantoprazole Sodium 40 MG/10 ML VIAL IVPUSH ×2 (07:59→20:22)
[2024-04-17 11:29] VITALS: BP 97/56; PULSE 76; RESP 16; TEMP 36.1; O2SAT 100
--- NOTE | 2024-04-17 12:59 | P.PNGI_ITS ---
Subjective Subjective Date of Service: 04/17/24 Interval History: feels well no vomiting Critical Care Time (minutes): 0 Physical Exam 2 Vital Signs: Vital Signs: Last Vital Signs Temp 96.9 F 04/17/24 11:29 Pulse 76 04/17/24 11:29 Resp 16 04/17/24 11:29 BP 97/56 L 04/17/24 11:29 Pulse Ox 100 04/17/24 11:29 O2 Del Method Room Air 04/17/24 11:29 BMI result Body Mass Index 22.4 GI: Other: nontender abdomen Objective Data Labs 04/16/24 06:25 04/16/24 06:25 Procedures Date of Service Date of Service: 04/17/24 Progress Note: A&P Assessment and plan (1) Gastric outlet obstruction: Status: Acute Assessment and Plan: labs reviewed diet advanced clinical followup Time Spent With Patient Time: Total time managing care of this patient today ____ minutes. Quality Stroke Does the patient have a stroke diagnosis?: No VTE Prior VTE?: No VTE Risk Level:: Medical - moderate - high VTE Device Contraindication: N/A - Device Ordered VTE Drug Contraindication: Treatment Not Indicated
--- NOTE | 2024-04-17 13:24 | HO.PM.IMPN ---
Subjective Subjective Date of Service: 04/17/24 Interval History: No acute issues overnight. Tolerating full liquid diet Review of Systems Denies chest pain Denies shortness of breath Denies nausea vomiting diarrhea Denies fever chills Physical Exam Vital Signs: Vital Signs: Last Vital Signs Temp 96.9 F 04/17/24 11:29 Pulse 76 04/17/24 11:29 Resp 16 04/17/24 11:29 BP 97/56 L 04/17/24 11:29 Pulse Ox 100 04/17/24 11:29 O2 Del Method Room Air 04/17/24 11:29 BMI result Body Mass Index 22.4 Const: Other: Awake alert no acute distress Resp: Other: Clear to auscultation bilaterally no rales rhonchi or wheezes Cardio: Other: No S4; positive S1-S2; no S3 murmurs rubs or gallops GI: Other: Soft nontender nondistended normoactive bowel sounds : Other: Soft nontender nondistended normoactive bowel sounds Extrem: Other: No edema bilaterally Objective Data Active Medications Morphine Sulfate (Morphine Sulfate 2 Mg/Ml Cartridge) 2 mg IVPUSH Q6H PRN; Protocol PRN Reason: Pain, Severe (Pain Scale 7-10) Naloxone HCl (Naloxone Hcl 0.4 Mg/Ml Vial) 0.04 mg IVPUSH Q5M PRN PRN Reason: Excessive sedation or RR < 8 Ondansetron HCl (Ondansetron Hcl 4 Mg/2 Ml Vial) 4 mg IVPUSH Q6H PRN PRN Reason: Nausea and Vomiting Pantoprazole Sodium (Pantoprazole Sodium 40 Mg/10 Ml Vial) 40 mg IVPUSH BID [facility] Last Admin: 04/17/24 07:59 Dose: 40 mg Documented By: HARSHA Sodium Chloride (0.9 % Sodium Chloride Flush 3 Ml Syringe) 3 ml IVFLUSH QSHIFT [facility] TO [facility] Last Admin: 04/17/24 07:59 Dose: 3 ml Documented By: HARSHA Tamsulosin HCl (Tamsulosin Hcl 0.4 Mg Capsule) 0.4 mg PO DAILY [facility] Last Admin: 04/17/24 07:59 Dose: 0.4 mg Documented By: HARSHA Labs 04/16/24 06:25 04/16/24 06:25 Assessment and Plan (1) Gastric outlet obstruction: Status: Acute Plan Tomás Mendoza is a 73 y/o man admitted with: 1. Gastric outlet obstruction -endoscopy noted. -continue b.i.d. pantoprazole IV -diet advanced to regular diet by GI. Follow clinically Ambulatory Full code Patient will need ongoing hospitalization for gastric outlet obstruction treatment with IV PPI and slow advance of diet Quality Stroke Does the patient have a stroke diagnosis?: No VTE Prior VTE?: No VTE Risk Level:: Medical - moderate - high VTE Device Contraindication: N/A - Device Ordered VTE Drug Contraindication: Treatment Not Indicated
[2024-04-17 15:54] VITALS: BP 100/51; PULSE 64; RESP 18; TEMP 36.1; O2SAT 99
[2024-04-17 19:41] VITALS: BP 106/56; PULSE 72; RESP 18; TEMP 36.5; O2SAT 98
[2024-04-18] VITALS: BP 95/55; PULSE 63; RESP 18; TEMP 36.2; O2SAT 99
[2024-04-18 04:00] VITALS: BP 99/60; PULSE 67; RESP 18; TEMP 36.3; O2SAT 96
[2024-04-18 07:56] VITALS: BP 99/58; PULSE 66; RESP 16; TEMP 36.4; O2SAT 100
--- NOTE | 2024-04-18 08:57 | P.PNGI_ITS ---
Subjective Subjective Date of Service: 04/18/24 Interval History: tolerating diet Critical Care Time (minutes): 0 Physical Exam 2 Vital Signs: Vital Signs: Last Vital Signs Temp 97.6 F 04/18/24 07:56 Pulse 66 04/18/24 07:56 Resp 16 04/18/24 07:56 BP 99/58 L 04/18/24 07:56 Pulse Ox 100 04/18/24 07:56 O2 Del Method Room Air 04/18/24 07:56 BMI result Body Mass Index 22.4 GI: Other: abdomen is soft and nontender Objective Data Labs 04/16/24 06:25 04/16/24 06:25 Procedures Date of Service Date of Service: 04/18/24 Progress Note: A&P Assessment and plan (1) Gastric outlet obstruction: Status: Acute Assessment and Plan: clinically improved ok for dc f/u bx results discussed soft diet including liquid nutrition repeat egd in 8-12 weeks, my office to arrange. Time Spent With Patient Time: Total time managing care of this patient today ____ minutes. Quality Stroke Does the patient have a stroke diagnosis?: No VTE Prior VTE?: No VTE Risk Level:: Medical - moderate - high VTE Device Contraindication: N/A - Device Ordered VTE Drug Contraindication: Treatment Not Indicated
[2024-04-18] MEDS: Tamsulosin HCL 0.4 MG CAPSULE PO (09:05)
--- NOTE | 2024-04-18 11:11 | MHC.CM.PN ---
Per MD rounds patient medically cleared for dc home self care. Patient's brother will provide transport home at 2pm. RN aware. [facility]MM delivered.
[2024-04-18] MEDS: Omeprazole 40 MG CAPSULE.DR PO (12:22)
--- NOTE | 2024-04-18 13:01 | P.DS_ITS ---
DS: Providers Provider Date of Service: 04/18/24 Date of admission: 04/15/24 02:24 Date of discharge: 04/18/24 Primary care physician: None Physician Consults: 04/15/24 02: Consult to Gastroenterology Routine Consulting Provider: Hai Hudson Reason for consultation: Gastric outlet obstruction Has provider been notified: No DS: Diagnosis Discharge Diagnosis (1) Gastric outlet obstruction: Status: Acute DS: Summary Hospital Course Hospital Course: 73 years old man with no significant past medical history presents to the emergency department complaining of epigastric pain that started yesterday associated with multiple episodes of nausea and vomiting. He described the pains at very intense without radiations. He reported abdominal distention. He denied diarrhea, fever or chills. Did not report any headache, dizziness or palpitations. He did not report weight lost or poor appetite. He did not report pain with swallowing. He does not take medications for any chronic disease. Abdominal surgery history significant for bilateral inguinal herniorrhaphies. Denied tobacco smoking, illicit drug use or alcohol abuse. In the ED, he was found to blood workup including CBC, CMP, lipase and troponin are essentially unremarkable. Abdomen and pelvis CT scan with IV contrast showed findings possible secondary to gastric obstruction and enlarged prostate with bladder wall thickening. ECG showed normal sinus rhythm with PACs and no acute ischemic change this. Hospital Course Patient admitted to general medical floor and consult was placed to GI. On 04/15/2024 patient underwent EGD which demonstrated erosive esophagitis and duodenal ulceration at the bulb and 2nd portion with edema and inflammatory changes. He was maintained on IV pantoprazole and diet was advanced as per GI. On the day of discharge he was seen by GI and cleared for discharge to home to continue omeprazole 40 mg twice daily until seen by GI. Dr. Hudson's office will call with the appointment Time Attestation Discharge Coordination Time (in mins): 35 Quality: Safe Use of Opioids Does Pt have an Active Cancer Diagnosis on the Problem List?: No Quality: Stroke Does the patient have a stroke diagnosis?: No Physical Exam Vital Signs: Vital Signs: Last Vital Signs Temp 97.6 F 04/18/24 07:56 Pulse 66 04/18/24 07:56 Resp 16 04/18/24 07:56 BP 99/58 L 04/18/24 07:56 Pulse Ox 100 04/18/24 07:56 O2 Del Method Room Air 04/18/24 07:56 BMI result Body Mass Index 22.4 Const: Other: Awake alert no acute distress Resp: Other: Clear to auscultation bilaterally no rales rhonchi or wheezes Cardio: Other: No S4; positive S1-S2; no S3 murmurs rubs or gallops GI: Other: Soft nontender nondistended normoactive bowel sounds : Other: Soft nontender nondistended normoactive bowel sounds Extrem: Other: No edema bilaterally DS: Data Data Completed and Pending Pending studies at discharge: Pending at discharge 04/15/24 14:54 Surgical [PTH] Routine Discharge Plan Discharge Anticipated Discharge Date/Time: 04/18/24 12:57 Patient Disposition: Home, Self-Care Discharge Diagnosis: Gastric outlet obstruction Referrals: Physician,None [Primary Care Provider] - 1 Week Discharge Medications: New omeprazole 40 mg Capsule,Delayed Release(Dr/Ec) 40 mg PO BID@0630,1630 Qty: 60 3RF tamsulosin 0.4 mg Capsule 0.4 mg PO DAILY Qty: 30 2RF Discharge Orders: Discharge Order (Routine); Ordered 04/18/24 Ordered By: Bran Barnett Diet: Advance to usual diet Activity on Discharge: As tolerated Stand Alone Forms: Patient Portal Discharge page Print Language: Upper Sorbian Care Plan Goals: Take omeprazole 40 mg twice daily until seen by Dr. Hudson Health Concerns: Dr. Hudson's office will call you with a follow up appointment Plan of Treatment: Follow up with the PCP next available Assessment: See discharge summary
[2024-04-18 13:18] VITALS: BP 114/60; PULSE 72; RESP 16; TEMP 36.5; O2SAT 99
== END 2024-04-18 13:50 | disposition home or self-care (01) | DRG 381 ==
LOC: HO.ED 04-15 00:44 → HO.EDOVER 04-15 02:34 → HO.S3 04-15 16:25
PROVIDERS: Internal Medicine; Internal Medicine Gastroenterology; Physician Assistant; Admitting Provider Internal Medicine; Emergency Provider Emergency Medicine Emergency Medical Services; Visit Provider Hospitalist
PROC: 0DJ08ZZ Inspection of Upper Intestinal Tract, Via Natural or Artificial Opening Endoscopic (ICD-10-PCS; CPT 43235; principal; 2024-04-15 14:20)
DX: K31.1 Adult hypertrophic pyloric stenosis (principal); K22.10 Ulcer of esophagus without bleeding; K26.9 Duodenal ulcer, unspecified as acute or chronic, without hemorrhage or perforation
CPT/HCPCS: 36415; 71045; 74177; 80048; 80053; 82271; 83690; 83735; 84484; 85014; 85018; 85025; 88305; 88313; 88342; 93005; 99285; J1885; J2003; J2405; J2470; J2704; J3480; J7120; Q9967

== ENCOUNTER → 2024-04-14 18:14 | Outpatient (BNV) | payer MEDICARE, MEDICAID, SELFPAY | PROVIDERS: Admitting Provider Internal Medicine; Emergency Provider Emergency Medicine Emergency Medical Services; Visit Provider Internal Medicine Cardiovascular Disease | DX: I49.1 Atrial premature depolarization (principal) | CPT/HCPCS: 93010 ==

== ENCOUNTER → 2024-04-14 21:38 | Outpatient (BNV) | payer MEDICARE, MEDICAID, SELFPAY | PROVIDERS: Emergency Provider Emergency Medicine Emergency Medical Services; Visit Provider Radiology Diagnostic Radiology | DX: R10.13 Epigastric pain (principal) | CPT/HCPCS: 74177 ==

== ENCOUNTER → 2024-04-15 01:38 | Outpatient (BNV) | payer MEDICARE, MEDICAID, SELFPAY | PROVIDERS: Admitting Provider Internal Medicine; Emergency Provider Emergency Medicine Emergency Medical Services; Visit Provider Radiology Vascular & Interventional Radiology | DX: J84.9 Interstitial pulmonary disease, unspecified (principal); Z46.59 Encounter for fitting and adjustment of other gastrointestinal appliance and device | CPT/HCPCS: 71045 ==

== ENCOUNTER → 2024-04-15 02:24 | Outpatient (BNV) | payer MEDICARE, MEDICAID, SELFPAY | PROVIDERS: Admitting Provider Internal Medicine; Emergency Provider Emergency Medicine Emergency Medical Services; Visit Provider Surgery | DX: K31.1 Adult hypertrophic pyloric stenosis (principal) | CPT/HCPCS: 99232 ==

== ENCOUNTER → 2024-04-15 02:24 | Outpatient (BNV) | payer MEDICARE, MEDICAID, SELFPAY | PROVIDERS: Admitting Provider Internal Medicine; Emergency Provider Emergency Medicine Emergency Medical Services; Visit Provider Internal Medicine | DX: K31.1 Adult hypertrophic pyloric stenosis (principal) | CPT/HCPCS: 99233; 99239 ==

== ENCOUNTER 2024-06-28 06:55 | Day surgery (SDC) | payer MEDICARE, OTHER, SELFPAY ==
[2024-06-28 07:08] VITALS: BMI 20.6
[2024-06-28] MEDS: Lactated Ringers 1,000 ML 100 ML IVCONT (07:13)
[2024-06-28 07:19] VITALS: BP 127/60; PULSE 66; RESP 18; TEMP 36.7; O2SAT 100
--- NOTE | 2024-06-28 07:39 | HO.ANESPROP2 ---
Documented by User: Kaylene Christina NP 06/27/24 09:35 HPI - Anesthesia Eval Consult details Narrative: 73yo M for Upper Endoscopy s/p EGD 03/2024 with GA-ETT 7.5 (transition from MAC d/t solid food observed in stomach) [facility] Past Medical History Medical History (Updated 06/28/24 @ 07:21 by Vira Chao RN) GERD (gastroesophageal reflux disease) BPH (benign prostatic hyperplasia) Gastric outlet obstruction Surgical History Surgical History History of esophagogastroduodenoscopy (EGD) History of facial surgery History of hernia surgery History of Problems with Anesthesia: No Social History Social History Household Members: Family Housing: Apartment Are you a primary medicare insurance specialist to a significant other at home: No Do you presently have visiting nurse or other home services: No Patient Tobacco Use Status: Never used Tobacco Have you been hit, kicked, punched, or otherwise hurt by someone within the past year? If so, by whom?: No Are you DNR?: No Advance Directives: No Advance Directives Information Provided: Yes Poor oral hygiene: No service: No Meds Allergies Allergy/AdvReac Type Severity Reaction Status Date / Time No Known Allergies Allergy Verified 06/28/24 07:21 Assessment and Plan Assessment Anesthesia Assessment: Chart Reviewed Final Anesthetic Review History of Problems with Anesthesia: No Documented by User: Estrella Cullen DO 06/28/24 07:41 [facility] Past Medical History Medical History (Updated 06/28/24 @ 07:21 by Vira Chao RN) GERD (gastroesophageal reflux disease) BPH (benign prostatic hyperplasia) Gastric outlet obstruction Family History Family history of problems with anesthesia: No Surgical History Surgical History History of esophagogastroduodenoscopy (EGD) History of facial surgery History of hernia surgery History of Problems with Anesthesia: No Social History Social History Household Members: Family Housing: Apartment Are you a primary medicare insurance specialist to a significant other at home: No Do you presently have visiting nurse or other home services: No Patient Tobacco Use Status: Never used Tobacco Have you been hit, kicked, punched, or otherwise hurt by someone within the past year? If so, by whom?: No Are you DNR?: No Advance Directives: No Advance Directives Information Provided: Yes Poor oral hygiene: No service: No Meds Allergies Allergy/AdvReac Type Severity Reaction Status Date / Time No Known Allergies Allergy Verified 06/28/24 07:21 Exam Exam Date and Time: 06/28/24 0730 Height,Weight and Vital Signs: Height 6 ft Weight 68.946 kg Vital Signs Temperature 98.0 F 06/28/24 07:19 Pulse Rate 66 06/28/24 07:19 Respiratory Rate 18 06/28/24 07:19 Blood Pressure 127/60 06/28/24 07:19 Pulse Oximetry 100 06/28/24 07:19 Oxygen Delivery Method Room Air 06/28/24 07:19 Temperature 98.0 F 06/28/24 07:19 Pulse Rate 66 06/28/24 07:19 Respiratory Rate 18 06/28/24 07:19 Blood Pressure 127/60 06/28/24 07:19 Pulse Oximetry 100 06/28/24 07:19 Oxygen Delivery Method Room Air 06/28/24 07:19 Airway Mallampati Class: I TM Dist: >3cm Neck ROM: Full Loose/Missing/Broken Teeth: Yes (patient denies any loose or broken teeth) Heart: S1S2 Lungs: CTAB Assessment and Plan Assessment Anesthesia Assessment: Anesthesia Plan Discussed and Chart Reviewed Final Anesthetic Review Family History of Problems with Anesthesia: No History of Problems with Anesthesia: No NPO: Yes ASA Class: II Final Preanesthetic Review: No Changes in Pt Med Stat, Meds/Allgs Chart Reviewed, Consent Obtained/Reviewed and Anes Risks/Benef Reviewed Patient Risk: Low Procedure Risk: Low Anesthetic Plan Anesthetic Plan: MAC: and Agree w/ Assess. and Plan Disposition: Standard PACU
--- NOTE | 2024-06-28 08:09 | MHC.SHP ---
Pre-Procedural Eval Section A - 24 Hr Update-Section A only Date of Service: 06/28/24 Section B - Complete if H&P > 30 days Chief Complaint: Adult hypertrophic pyloric stenosis Details of Present Illness: see H&P no changes Relevant Family History (Specify if Yes): No Relevant Social History: None Present Medications: see Short Stay Collaborative assessment Medical History: No relevant PMH Allergies: Allergies Allergy/AdvReac Type Severity Reaction Status Date / Time No Known Allergies Allergy Verified 06/28/24 07:21 Review of Systems Sugical H&P ROS: Negative: Constitution, Cardiovascular, Respiratory, Neurological, Psychiatric, Hem-Onc, Allergic/Immunologic, Gastrointestinal, Genitourinary, Musculoskeletal, Integumentary, Endocrine and Eyes/Ears/Nose/Throat Exam Surgical H&P Exam: Normal: HEENT, Normal: Heart, Normal: Lungs, Normal: Extremities, Normal: Abdomen, Normal: Skin and Normal: Neurological Plan Diagnosis/Plan: Unchanged I have reviewed the history and physical and performed a pertinent physical examination on my patient. No changes have occurred unless specified. Time Spent With Patient Time: Total time managing care of this patient today ____ minutes.
[2024-06-28 08:27] VITALS: BP 95/48; PULSE 63; RESP 18; TEMP 36.4; O2SAT 97
[2024-06-28 08:42] VITALS: BP 101/60; PULSE 70; RESP 18; TEMP 36.3; O2SAT 100
--- NOTE | 2024-06-28 08:42 | OP_ITS ---
DATE OF SERVICE: 06/28/2024 SURGEON: Hai Hudson MD INDICATIONS: Duodenal ulcer and erosive esophagitis. PREOPERATIVE DIAGNOSIS: POSTOPERATIVE DIAGNOSIS: PROCEDURE PERFORMED: Upper endoscopy with biopsy. ESTIMATED BLOOD LOSS: COMPLICATIONS: ANESTHESIA: Monitored anesthesia care. ASSISTANTS: SPECIMENS: DESCRIPTION OF PROCEDURE: A history and physical was performed. The risks and benefits of the procedure were explained to the patient. Informed consent was obtained. The patient was placed in the left lateral decubitus position. The Olympus video gastroscope was introduced into the esophagus, stomach, and duodenum. Examination was performed. The scope was removed. He tolerated the procedure well and was returned to recovery in stable condition. FINDINGS: 1. Esophagus: The esophagus was normal. There was no esophagitis. Biopsies were obtained from the EG junction. 2. Stomach: The stomach showed no evidence of masses, ulcers, or polyps. There was no retained food in the stomach. 3. Duodenum: The previously identified ulcer in the duodenal bulb was completely healed. No ulceration was seen in the bulb or 2nd portion. The scope passed through into the 2nd portion with no difficulty. Antral biopsies were obtained from the stomach to evaluate for H pylori. IMPRESSION: Normal upper endoscopy. RECOMMENDATION: 1. Follow up as needed. 2. Follow up the biopsy results. MD JORDAN Soriano/CHAPIN / [id number]
== END 2024-06-28 09:16 | disposition home or self-care (01) ==
PROVIDERS: Visit Provider Internal Medicine Gastroenterology
PROC: 0DJ08ZZ Inspection of Upper Intestinal Tract, Via Natural or Artificial Opening Endoscopic (ICD-10-PCS; CPT 43235; principal; 2024-06-28 08:20)
DX: K31.1 Adult hypertrophic pyloric stenosis (principal); K29.50 Unspecified chronic gastritis without bleeding; A04.8 Other specified bacterial intestinal infections; K21.9 Gastro-esophageal reflux disease without esophagitis; D64.9 Anemia, unspecified; N40.0 Benign prostatic hyperplasia without lower urinary tract symptoms; Z79.899 Other long term (current) drug therapy
CPT/HCPCS: 43239; 88305; 88313; 88342; J2003; J2704

== ENCOUNTER 2024-07-05 10:11 | Outpatient (AMB) | payer MEDICARE, MEDICAID, SELFPAY ==
[2024-07-05 10:17] VITALS: BP 108/58; PULSE 63; RESP 16; TEMP 36.8; O2SAT 99; BMI 20.9
--- NOTE | 2024-07-05 10:17 | MHC.PC.OV ---
Vital Signs 07/05/24 10:17 Height 6 ft Weight 154 lb BMI 20.9 BP 108/58 L Blood Pressure Location Lt brachial Position Sitting Respiration 16 Pulse 63 Pulse Source Pulse Oximeter Temp 98.3 F Temp Source Oral Pulse Oximetry (%) 99 Oxygen Delivery Method Room Air Intake Visit Reasons: establish care Intake Note: Patient is a new patient here to establish care. Transferring care from [facility] in [place], [place]; Last seen ~17 years ago. Medical records have been requested and have not been received. Hot Box Operator Required: Yes Hot Box Operator Language: Emirati Hot Box Operator Name: Used tablet- Accompanied by: Self / Same As Patient Allergies No Known Allergies Allergy (Verified 07/05/24 10:45) Medication List - Last Reconciled 07/05/24 by SIMBA Garcia omeprazole 40 mg PO BID@0630,1630 tamsulosin 0.4 mg PO DAILY Tobacco use date assessed: 07/05/24 Fall risk assessment: No Falls in past year Last assessed Fall Risk: 07/05/24 Dental Screening Dental Screen Date: 07/05/24 Did you have a dental visit in the last 12 months?: No Did you have a dental problem in the last 6 months where you did not have access to dental care?: No Was dental information given to patient?: No HPI establish care HPI Details Previous PCP: [facility] in [place], [place] Last visit: 17 years Last PE: unsure Specialist: GI OBGYN: n/a Past medical history: hearing loss, duodenal ulcer Medications: Family HX: Problem: mother high blood sugar, htn, The patient is a 73-year-old male presenting with concerns regarding a gastric ulcer and persistent hearing issues. Initially, in March, he experienced the adverse effects of a large gastric ulcer, reporting obstruction, severe vomiting, and significant dietary difficulties. Following treatment with omeprazole, his symptoms alleviated, with recent endoscopy confirming the ulcer's resolution and diagnosing inactive gastritis. For his hearing difficulties, the patient noted substantial hearing loss in both ears, complicating his engagement in noisy settings. Hearing aids were previously prescribed yet discontinued due to adverse effects. He has not yet consulted a specialist to reevaluate and address his auditory condition adequately. Patient reports that he has about 80-90% hearing loss in left ear in about 50% ear in loss in right ear. Patient reports that he has not up-to-date on vaccination or any screenings; he declines colonoscopy. Per patient, he believes that everything is in God's hands. [facility] Medical History (Updated 07/07/24 @ 23:09 by SIMBA Garcia) Hearing loss GERD (gastroesophageal reflux disease) BPH (benign prostatic hyperplasia) Gastric outlet obstruction Surgical History History of esophagogastroduodenoscopy (EGD) History of facial surgery History of hernia surgery Family History Mother Hypertension Diabetes Father No problems noted. Social History Household Members: Family Housing: House (3-family house) Are you a primary day care attendant to a significant other at home: No Do you presently have visiting nurse or other home services: No Alcohol intake: never Patient Tobacco Use Status: Never used Tobacco e-Cigarette/Vaping Use: Never Used service: No Current occupational status: retired Cognitive needs: No Hearing needs: Yes Vision needs: No Questionnaire Thrive Questionnaire Date Thrive assessed: 06/28/24 I am a: Patient What is your living situation today?: I have a steady place to live Within the past 12 months, did the food you bought not last and you didn't have the money to get more?: I choose not to answer this question Within the past 12 months, did you worry whether your food would run out before you got money to buy more?: I choose not to answer this question Do you have trouble paying for medicines?: I choose not to answer this question Do you have trouble getting transportation to medical appointments?: I choose not to answer this question Do you have trouble paying your heating and electricity bill?: I choose not to answer this question Do you have trouble taking care of your child, family member or friend?: I choose not to answer this question Do you have trouble with day-to-day activities such as bathing, preparing meals, shopping, managing finances, etc.?: I choose not to answer this question Are you currently unemployed and looking for a job?: I choose not to answer this question Are you interested in more education?: I choose not to answer this question Currently or been in a relationship where the following occur: I choose not to answer THRIVE Score: 0 AUDIT C Alcohol Use Questionnaire (AUDIT-C) 1. How often do you have a drink containing alcohol?: Never 3. How often do you have six or more drinks on one occasion?: Never Total Score: 0 Score Reviewed/Action Taken: No Review of Systems Const Details: - Gastrointestinal: Reports previous issues related to a gastric ulcer, now resolved; denies current pain or dietary disturbances. - Neurological: Denies coordination or movement problems. - Ear/Nose/Throat: Reports significant hearing loss in both ears, dizziness associated with previous use of hearing aids. - Genitourinary: Reports occasional difficulty with urination starting the stream; denies hematuria or urinary pain. - Hematological: Reports history of anemia post-ulceration; denies any current symptoms consistent with anemia. Denies headache(s) Eyes Denies loss of vision ENT Denies vertigo, Denies dizziness, Denies headache(s) and Denies sore throat Card Denies chest pain, Denies leg edema and Denies lightheadedness Resp Denies cough, Denies hemoptysis and Denies wheezing GI Denies abdominal pain, Denies melena, Denies constipation, Denies diarrhea and Denies vomiting Reports difficulty urinating (Difficulty starting stream), Denies dysuria, Denies urinary frequency and Denies urinary urgency Musc Denies arthralgias, Denies joint swelling, Denies numbness and Denies tingling Neuro Denies Abnormal speech present, Denies behavioral changes, Denies vertigo, Denies dizziness, Denies headache(s), Denies loss of vision, Denies memory loss, Denies numbness and Denies tingling Psych Denies anxiety, Denies behavioral changes, Denies depression, Denies memory loss and Denies panic attacks Raphael/Lymph Denies easy bleeding and Denies easy bruising Aller/Immun Denies wheezing Physical exam (Primary Care) Vital Signs: Last Vital Signs Temp 98.3 F 07/05/24 10:17 Pulse 63 07/05/24 10:17 Resp 16 07/05/24 10:17 BP 108/58 L 07/05/24 10:17 Pulse Ox 99 07/05/24 10:17 Oxygen Delivery Method Room Air 07/05/24 10:17 BMI result Body Mass Index 20.9 Tobacco/Smoking Status: Tobacco use Status Tobacco use date assessed 07/05/24 07/05/24 10:33 Patient Tobacco Use Status Never used Tobacco 07/05/24 10:30 e-Cigarette/Vaping Use Never Used 07/05/24 10:33 Thrive Assessment: Date of Thrive Assessment Date Thrive assessed 06/28/24 07/05/24 10:17 Currently or been in a relationship where the following occur: I choose not to answer Const General: healthy appearing, no acute distress, alert and awake Nutritional Appearance: well nourished Orientation/consciousness: oriented to person, oriented to place and oriented to time HENMT Ears: TM's normal bilaterally General nose exam: Normal nasal mucous membranes and turbinates present Eyes Conjunctivae: conjunctivae normal Sclerae: sclerae normal Pupils: Equal, round and reactive pupils present Neck Neck: Yes no lymphadenopathy and Yes no JVD Thyroid: Thyroid normal Carotids: no bruits Resp Effort & Inspection: normal respiratory effort and not tachypneic Auscultation: no crackles, no rales, no rhonchi and no wheezes Cardio Rate: regular rate Rhythm: regular rhythm Heart sounds: no murmurs and normal S1 and S2 GI Palpation (GI): Soft to palpation, nontender, no hepatomegaly and no splenomegaly Auscultation: normal bowel sounds Skin General skin exam: no rashes or lesions noted and dry skin Neuro General: oriented to person, oriented to place and oriented to time Cranial nerves: Yes Equal, round and reactive pupils present Speech: No Abnormal speech present Gait exam (Neuro): Normal gait present Motor exam (neuro): no tremor noted Extrem Right upper extremity: full ROM Left upper extremity: full ROM Right lower extremity: full ROM; no edema Left lower extremity: full ROM; no edema Psych Mental Status: mental status grossly normal Speech and movement: Normal speech and movement present Affect: normal affect Attitude: cooperative Thought process: Normal thought process present Coding Level of Care Code New Pt Level 4 (43105) Diagnoses Benign prostatic hyperplasia (BPH) with straining on urination N40.1; R39.16 Lower urinary tract symptom presence: symptoms present Lower urinary tract symptom detail: straining on urination Gastroesophageal reflux disease without esophagitis K21.9 Esophagitis presence: without esophagitis Sensorineural hearing loss (SNHL) of both ears H90.3 Hearing loss type: sensorineural Laterality: bilateral Anemia, unspecified type D64.9 Anemia type: unspecified type Time Spent (min) 39 Assessment & Plan Assessment & Plan (1) BPH (benign prostatic hyperplasia): Code(s): N40.0 - Benign prostatic hyperplasia without lower urinary tract symptoms Category: Medical Qualifiers: Lower urinary tract symptom presence: symptoms present Lower urinary tract symptom detail: straining on urination Qualified Code(s): N40.1 - Benign prostatic hyperplasia with lower urinary tract symptoms; R39.16 - Straining to void (2) GERD (gastroesophageal reflux disease): Code(s): K21.9 - Gastro-esophageal reflux disease without esophagitis Category: Medical Qualifiers: Esophagitis presence: without esophagitis Qualified Code(s): K21.9 - Gastro-esophageal reflux disease without esophagitis (3) Hearing loss: Code(s): H91.90 - Unspecified hearing loss, unspecified ear Category: Medical Qualifiers: Hearing loss type: sensorineural Laterality: bilateral Qualified Code(s): H90.3 - Sensorineural hearing loss, bilateral (4) Anemia: Code(s): D64.9 - Anemia, unspecified Category: Medical Qualifiers: Anemia type: unspecified type Qualified Code(s): D64.9 - Anemia, unspecified Plan I will continue the omeprazole therapy until the patient's scheduled follow-up in September for proper management of his inactive gastritis. A comprehensive assessment by an ENT specialist is necessary to address his significant hearing loss and dizziness associated with hearing aid use. Moreover, I advised on obtaining a PSA test after observing some urinary symptoms, ensuring the patient refrains from strenuous activity for 24 hours before testing. I also recommended checking his iron and cholesterol levels to gather more insight into his current health status. Ongoing lifestyle modifications alongside clinical follow-ups were suggested to aid in managing the patient's auditory and gastrointestinal conditions effectively. Patient was informed and verbally consented to the use of an ambient scribe for clinic note documentation during this visit. Orders: Orders Comprehensive [place]. Panel Fast 07/06/24 Z00.00 - Encounter for general adult medical examination without abnormal findings Vitamin D 25-OH Total 07/06/24 Z00.00 - Encounter for general adult medical examination without abnormal findings Glucose Fasting 07/06/24 Z00.00 - Encounter for general adult medical examination without abnormal findings UA CC w/rflx Micro + Cult 07/06/24 Z00.00 - Encounter for general adult medical examination without abnormal findings IRON PROFILE 07/06/24 Z00.00 - Encounter for general adult medical examination without abnormal findings Complete Blood Count Auto Diff 07/06/24 Z00.00 - Encounter for general adult medical examination without abnormal findings PSA,Total (Free>4and<10) 07/06/24 Z00.00 - Encounter for general adult medical examination without abnormal findings TSH reflex Free T4 07/06/24 Z00.00 - Encounter for general adult medical examination without abnormal findings Lipid Panel 07/06/24 Z00.00 - Encounter for general adult medical examination without abnormal findings Referrals Ear/Nose/Throat Referral H90.3 - Sensorineural hearing loss, bilateral
--- OUTSIDE RECORDS SUMMARY | 2024-07-05 12:02 | XMS_ITS ---
Author Organization [facility] Address [address] [place] [address] Care Team Providers Care Director Of Residence Life Name Role Phone NONE, NONE Primary Care Provider Kenan Hudson Jr, Hai Mcgovern [phone] REASON FOR VISIT Pathology Encounters Encounter Location Date Provider Diagnosis [facility] [address] [place] [phone] 07/01/2024 Hai Hudson Jr Plan Of Treatment Next Appt Details Provider Name:Hai arthur Jr, 09/22/2024 02:35:00 PM, [address], [address], [place], [address], Progress Notes * RAJIV LEODOB:[birth year] (73 yo M)Acc No.[id number]:07/01/2024 Patient:?NILESH LEOKSEY :1950???Age:73 Y???Sex:Male Address:[address] [place] [address], [address] * true * Date:? Generated for Printi jose/Breg/eTransmitting on:?07/05/2024 12:02 PM EDT
--- OUTSIDE RECORDS SUMMARY | 2024-07-05 12:02 | XMS_ITS ---
Author Organization [facility] [address] [place] [address] Care Team Providers Care Fat Purification Worker Name Role Phone NONE, NONE Primary Care Provider Kenan Hudson Jr, Hai Unavailable [phone] REASON FOR VISIT IS F/U APPT NEEDED WITH YOU? Medications Medication SIG (Take, Route, Fr equency, Duration) Notes Start Date End Date Status Clarithromycin 500 MG 1 tablet Orally ev wolfgang 12 hrs for 14 days 04/21/2024 Active Amoxicillin 500 MG 2 Orally Twice a day for 14 days 04/21/2024 Active Problems Problem Type SNOMED Code ICD Code Onset Dates Problem Status W/U Status Risk Notes Problem 06523541 Duodenal ulcer (K26.9) Active confirmed Problem 209809945 Gastric outlet obstruction (K31.1) Active confirmed Problem 642326251 H. pylori infection (A04.8) Active confirmed Encounters Encounter Location Date Provider Diagnosis [address] [phone] 04/20/2024 Hai Hudson Jr Duodenal ulcer K26.9 ; Gastric outlet obstruction K31.1 and H. pylori infection A04.8 Assessments Encounter Date Diagnosis (ICD Code) Assessment Notes Treatment Notes Treatment Clinical Notes Section Notes 04/20/2024 Duodenal ulcer (ICD-10 - K26.9) 04/20/2024 Gastric outlet obstruction (ICD-10 - K31.1) 04/20/2024 H. pylori infection (ICD-10 - A04.8) Plan Of Treatment Medication Medication Name Sig Start Date Stop Date Notes Clarithromycin 500 MG 1 tablet Orally ev wolfgang 12 hrs for 14 days 04/21/2024 Amoxicillin 500 MG 2 Orally Twice a day for 14 days 2024 Future Test Test Name Order Date UPPER GI ENDOSCOPY 04/21/2024 Next Appt Details Provider Name:Hai arthur Jr, 09/22/2024 02:35:00 PM, [address] [facility], [address], [place], [address], Progress Notes * RAJIV LEODOB:10[birth year] (73 yo M)Acc No.[id number]:04/20/2024 Patient:?RAJIV LEO :1950???Age:73 Y???Sex:Male Address:[address] [place] [address], [address] * Refills? Start Amoxicillin Capsule, 500 MG, Orally, 56, 2, Twice a day, 14 days, Refills=0 Start Clarithromycin Tablet, 500 MG, Orally, 28 Tablet, 1 tablet, every 12 hrs, 14 days, Refills=0 Subjective: * Chief Complaints: * ???IS F/U APPT NEEDED WITH Y OU? * Medical History:? * Surgical History:? * Hospitalization/Major Diagno stic Procedure:? * Medications:? Objective: Assessment: * Assessment: 1.?Duodenal ulcer - K26.9 (P rimary)?2.?Gastric outlet obstruction - K31.1?3.?H. pylori infection - A04.8? Plan: * Treatment: 2.?Gastric outlet obstructio n?Procedure: UPPER GI ENDOSCOPY (Ordered for 04/21/2024) 3.?H. pylori infection?Procedure: UPPER GI ENDOSCOPY (Ordered for 04/21/2024) * Procedure Codes:? * true * Date:? Generated for Autumn garcia/Vidya/eTransmitting on:?07/05/2024 12:01 PM EDT
--- OUTSIDE RECORDS SUMMARY | 2024-07-05 12:02 | XMS_ITS | Patient Health Record ---
Author Organization [facility] Address [address] [place] [address] Care Team Providers Care Scientific Informatics Analyst Name Role Phone NONE, NONE Primary Care Provider Hai Palacios Jr [phone] Results Component Value Reference Range Notes Pathology Reviewed date:04/21/2024 07:50:38 AM Interpretation: Performing Lab:[facility] [place], [address] [place] [phone] Notes/Report: Name: Sandhya Mendoza Age/Sex: 73/M : 1950 Unit#: [id number] Attend Dr: Bran Barnett DO Re04/15/24 Status : DIS IN Location: [facility] 376-1 Disch: 04/18/24 SPEC : [id number] RECD: 04/18/24 STATUS: BRYAN JACKSON NUM: [id number] JOSHUA: 04/15/24-[address] [facility] [address]: Hai Hudson MD ENTERED: 04/18/24- 14 SP TYPE: Surgical OTHR DR: Bran Barnett DO ORDERED: HE Stain/6, Gross Micro L4/2, IHC, Special st. 2/2, H. pylori, AB/PAS/2 Diagnosis A. Duodenum, bulb, b iopsy: Chronic active duodenitis. B. Stomach, antrum, biopsy: - Antral-type mucosa with severe chronic active inflammation. - Positive for H pylori. Clinical History Pre-Op Dx: Possible gastric outlet obstruction Post-Op Dx: Duodenal ulcer Microscopic Description A, B. Microscopic se ctions examined. Foveolar metaplasia is present in A and no metaplastic changes are seen in B supported by AB/PAS stains; Helicobacter organisms are readily seen, suppor marcie by H. pylori immunostain (B). Material Received A. Bx's duodenal bulb B. Antral bx's Gross Description Received in two parts. Part A: Received in formalin labeled ?bx's duodenal bulb? are 3 ruiz irregular and rectangular tissue f ragments ranging from 0.25-0.3 cm, submitted in toto in a cassette labeled A. Part B: Received in formalin labeled ?antral bx's? are 2 ruiz irregular tissue fragments measuring 0.25 and 0 .3 cm, submitted in toto in a cassette labeled B. [facility] Special studies orde red and performed: Immunostain for H. pylori on B; AB/PAS stains on A and B Copies To: Hai Hudson MD [facility] [address] [place] [address] [address] [place], [place] [phone] CONTINUED ON NEXT PAGE Name: Sandhya Mendoza Age/Sex: 73/M : 1950 Unit#: [id number] Attend Dr: Bran Barnett DO Re04/15/24 Status : DIS IN Location: [facility] 376-1 Disch: 04/18/24 SPEC : [id number] RECD: 04/18/24 STATUS: BRYAN JACKSON NUM: [id number] JOSHUA: 04/15/24-[address] [facility] [address]: Hai Hudson MD ENTERED: 04/18/24 SP TYPE: Surgical OTHR DR: Bran Barnett DO ORDERED: HE Stain/6, Gross Micro L4/2, IHC, Special st. 2/2, H. pylori, AB/PAS/2 Copies To: (Continued) Bran Barnett DO [address] [place] [address] Signed (si gnature on file) Tremaine Guardado MD 04/20/24 1103 END OF REPORT Pathology Reviewed date:07/01/2024 01:48:46 PM Interpretation: Performing Lab:[facility] [place], [address] [place] [address] ST, [place] [address] Notes/Report: Name: Sandhya Mendoza Age/Sex: 73/M : 1950 Unit#: [id number] Attend Dr: Hai Hudson MD Re06/28/24 Status : [facility] Location: [facility] Disch: SPEC : [id number] RECD : 06/28/24 STATUS: BRYAN CHRISTINESantino NUM: [id number] JOSHUA: 06/28/[address] [facility] [address]: Hai Hudson MD ENTERED: 06/28/24-10 10 SP TYPE: Surgical OTHR DR: ORDERED: HE Stain/6, Gross Micro L4/2, IHC, Special st. 2, H. pylori, AB/PAS Diagnosis A. Gastric antrum, b iopsy: Gastric antral mucosa with minimal chronic inactive gastritis; negative for H.pylori, intestinal metaplasia and dysplasia. B. Esophagogastric j unction, biopsy: Squamous mucosa with rare detached columnar epithelium and minim al chronic inactive inflammation; negative for intestinal metaplasia and dysplasia. Clinical History Pre-Op Dx: Adult hyp ertrophic pyloric stenosis Post-Op Dx: Normal EGD Microscopic Description Microscopic sections reviewed. Immunostain for H. pylori on A is negative. AB/PAS on B is negative for intesti nal metaplasia. Controls stain appropriately. Material Received A. Antrum bx's B. EG junction bx's Gross Description Received in two parts. Part A: Received in formalin labeled ?antrum bx's? are 2 ruiz-pink irregular tissue fragments each measu ring 0.25 cm, submitted in toto in a cassette labeled A. Part B: Received in formalin labeled ?EG junction bx's? are 2 mueller-white irregular tissue fragments each measu ring 0.25 cm, submitted in toto in a cassette labeled B. [facility] Special studies orde red and performed: Immunostain for H. pylori on A1; AB/PAS stain on B1. Signed (si gnature on file) Caroline Ortega 06/30/241922 END OF REPORT Reason For Referral No Information Medications Medication SIG (Take, Route, Fr equency, Duration) Notes Start Date End Date Status Clarithromycin 500 MG 1 tablet Orally ev wolfgang 12 hrs for 14 days 04/21/2024 Active Amoxicillin 500 MG 2 Orally Twice a day for 14 days 04/21/2024 Active Problems Problem Type SNOMED Code ICD Code Onset Dates Problem Status W/U Status Risk Notes Problem Chronic duodenal ulcer without hemorrhage AND without perforation (97327727) Chronic duodenal ulcer without hemorrhage or perforation (K26.7) Active confirmed Problem Adult hypertrophic pyloric stenosis (441195900) Adult hypertrophic pyloric stenosis (K31.1) Active confirmed Problem 13342881 Duodenal ulcer (K26.9) Active confirmed Problem 933846143 H. pylori infection (A04.8) Active confirmed Problem 839480344 Gastric outlet obstruction (K31.1) Active confirmed Encounters Encounter Location Date Provider Diagnosis [facility] Outpatient [address], [place] [phone] 06/28/2024 Hai Hudson Jr Acute duodenal ulcer without hemorrhage or perforation K26.3 and Erosive esophagitis K22.10 [facility] [address] [place] [phone] 04/20/2024 Hai Hudson Jr Duodenal ulcer K26.9 ; Gastric outlet obstruction K31.1 and H. pylori infection A04.8 [facility] [address] [address] 07/01/2024 Hai Hudson Jr Assessments Encounter Date Diagnosis (ICD Code) Assessment Notes Treatment Notes Treatment Clinical Notes Section Notes 06/28/2024 Acute duodenal ulcer without hemorrhage or perforation (ICD-10 - K26.3) 06/28/2024 Erosive esophagitis (ICD-10 - K22.10) 04/20/2024 Duodenal ulcer (ICD-10 - K26.9) 04/20/2024 Gastric outlet obstruction (ICD-10 - K31.1) 04/20/2024 H. pylori infection (ICD-10 - A04.8) Plan Of Treatment Future Test Test Name Order Date UPPER GI ENDOSCOPY 04/21/2024 Next Appt Details Provider Name:Hai arthur Jr, 09/22/2024 02:35:00 PM, [address] [place] [address], [address], [place], [address], Insurance Providers Payer Name Payer Address Payer Phone Subscriber Number Group Number Insured Name Patient Relationship to Insured Coverage Start Date Coverage End Date [employer] (No Referral) [address] THOMAS AGUERO [id number] RAJIV KO Self - patient is the insured MEDICAID OF [facility] [address] [place] [address] [phone] [id number] [employer] RAJIV VALDES Self - patient is the insured
--- OUTSIDE RECORDS SUMMARY | 2024-07-05 12:02 | XMS_ITS ---
Author Organization [facility] Address 10 [facility] [address] [place] [address] Care Team Providers Care Tapper Operator Name Role Phone NONE, NONE Primary Care Provider Kenan Hudson Jr, Hai Mcgovern REASON FOR VISIT h.pylori,gastric outlet obstruction Encounters Encounter Location Date Provider Diagnosis [facility] Outpatient [address] [place] [phone] 06/28/2024 Hai Hudson Jr Acute duodenal ulcer without hemorrhage or perforation K26.3 and Erosive esophagitis K22.10 Assessments Encounter Date Diagnosis (ICD Code) Assessment Notes Treatment Notes Treatment Clinical Notes Section Notes 06/28/2024 Acute duodenal ulcer without hemorrhage or perforation (ICD-10 - K26.3) 06/28/2024 Erosive esophagitis (ICD-10 - K22.10) Plan Of Treatment Next Appt Details Provider Name:Hai arthur Jr, 09/22/2024 02:35:00 PM, [address] [place] [address], Suite [facility], [place], [address], Progress Notes * RAJIV LEODOB:[birth year] (73 yo M)Acc No.[id number]:06/28/2024 EGD/MAC Patient:?RAJIV LEO Provider:?Hai Hudson MD :1950???Age:73 Y???Sex:Male Mark e:06/28/2024 Address:[address] [place], [place] [phone] Subjective: * Chief Complaints: * ???1. H.pylori,gastric outle t obstruction. * Medical History:? Objective: * Vitals:? Assessment: * Assessment: 1.?Acute duodenal ulcer with out hemorrhage or perforation - K26.3 (Primary)???2.?Erosive esophagitis - K22.10??? Plan: * Treatment: * Procedure Codes:?07820 UPPER GI ENDOSCOPY, BIOPSY * * The named appointment provid er may or may not be the originator of this progress note, and it is not deemed complete until electronically signed by the appointment provider. Sign off status: Pending * Provider:?Hai Hudson MD Date:?0 06/28/2024 Generated for Autumn garcia/Vidya/eTransmitting on:?07/05/2024 12:02 PM EDT
== END 2024-07-05 11:17 | disposition home or self-care (01) ==
DX: N40.1 Benign prostatic hyperplasia with lower urinary tract symptoms (principal); R39.16 Straining to void; K21.9 Gastro-esophageal reflux disease without esophagitis; H90.3 Sensorineural hearing loss, bilateral; D64.9 Anemia, unspecified

== ENCOUNTER → 2024-07-05 10:11 | Outpatient (BNVA) | payer MEDICARE, OTHER, SELFPAY | DX: K29.70 Gastritis, unspecified, without bleeding (principal); N40.1 Benign prostatic hyperplasia with lower urinary tract symptoms; R39.16 Straining to void; K21.9 Gastro-esophageal reflux disease without esophagitis; H90.3 Sensorineural hearing loss, bilateral; D64.9 Anemia, unspecified | CPT/HCPCS: 99202 ==

== ENCOUNTER 2024-07-06 06:17 | Outpatient (REF) | payer MEDICARE, OTHER, SELFPAY ==
--- OUTSIDE RECORDS SUMMARY | 2024-07-06 06:20 | XMS_ITS ---
Author Organization [facility] [address] [place] [address] Care Team Providers Care Street Roller Engineer Name Role Phone NONE, NONE Primary Care Provider Kenan Hudson Jr, Hai Unavailable REASON FOR VISIT IS F/U APPT NEEDED [...] Problem Status W/U Status Risk Notes Problem 69608250 Duodenal ulcer (K26.9) Active confirmed Problem 755260992 Gastric outlet obstruction (K31.1) Active confirmed Problem 401661322 H. pylori infection (A04.8) Active confirmed Encounters Encounter Location Date Provider Diagnosis [address] [address] 04/20/2024 Hai Hudson Jr Duodenal ulcer K26.9 [...] Name:Hai arthur Jr, 09/22/2024 02:35:00 PM, [address] [facility], [address], [place], [address], Progress Notes * RAJIV LEODOB:10/11 (73 yo M)Acc No.[id number]:04/20/2024 Patient:?RAJIV LEO :1950???Age:73 Y???Sex:Male Address:[address] [place] [address], [address] * Refills? Start Amoxicillin Capsule, 500 MG, [...] true * Date:? Generated for Autumn garcia/Vidya/eTransmitting on:?07/06/2024 06:19 AM EDT
--- OUTSIDE RECORDS SUMMARY | 2024-07-06 06:20 | XMS_ITS ---
Author Organization [facility] Address [address] [place] [address] Care Team Providers Care Water Gas Operator Name Role Phone NONE, NONE Primary Care Provider Kenan Hudson Jr, Hai cMgovern REASON FOR VISIT Pathology Encounters Encounter Location Date Provider Diagnosis [facility] [address] [place] [address] 07/01/2024 Hai Hudson Jr Plan Of Treatment Next Appt Details Provider Name:Hai arthur Jr, 09/22/2024 02:35:00 PM, [address], [address], [place], [address], Progress Notes * RAJIV LEODOB:10/11 (73 yo M)Acc No.[id number]:07/01/2024 Patient:?NILESH LEOKSEY :1950???Age:73 Y???Sex:Male Address:[address] [place] [address], [address] * true * Date:? Generated for Celestinei jose/Vidya/eTransmitting on:?07/06/2024 06:20 AM EDT
--- OUTSIDE RECORDS SUMMARY | 2024-07-06 06:20 | XMS_ITS ---
Author Organization [facility] Address 10 [facility] [address] [place] [address] Care Team Providers Care Consulting Psychiatrist Name Role Phone NONE, NONE Primary Care Provider Kenan Hudson Jr, Hai Mcgovern [phone] REASON FOR VISIT h.pylori,gastric outlet obstruction Encounters Encounter Location Date Provider Diagnosis [facility] Outpatient [address] [place] [phone] 06/28/2024 Hai Hudson Jr Acute duodenal ulcer without hemorrhage or perforation K26.3 and Erosive esophagitis K22.10 Assessments Encounter Date Diagnosis (ICD Code) Assessment Notes Treatment Notes Treatment Clinical Notes Section Notes 06/28/2024 Acute duodenal ulcer without hemorrhage or perforation (ICD-10 - K26.3) 06/28/2024 Erosive esophagitis (ICD-10 - K22.10) Plan Of Treatment Next Appt Details Provider Name:Hai arthur Jr, 09/22/2024 02:35:00 PM, [address] [place] [address], Suite [facility], [place], [address], Progress Notes * RAJIV LEODOB:10/11 (73 yo M)Acc No.[id number]:06/28/2024 EGD/MAC Patient:?RAJIV LEO Provider:?Hai Hudson MD :1950???Age:73 Y???Sex:Male Mark e:06/28/2024 Address:[address] [place], [place] [id number] Subjective: * Chief Complaints: * ???1. H.pylori,gastric outle t obstruction. * Medical History:? Objective: * Vitals:? Assessment: * Assessment: 1.?Acute duodenal ulcer with out hemorrhage or perforation - K26.3 (Primary)???2.?Erosive esophagitis - K22.10??? Plan: * Treatment: * Procedure Codes:?11597 UPPER GI ENDOSCOPY, BIOPSY * * The named appointment provid er may or may not be the originator of this progress note, and it is not deemed complete until electronically signed by the appointment provider. Sign off status: Pending * Provider:?Hai Hudson MD Date:?0 06/28/2024 Generated for Autumn garcia/Vidya/eTransmitting on:?07/06/2024 06:20 AM EDT
[2024-07-06 06:40] LABS: MANUAL DIFF FLAG NO
[2024-07-06 07:26] LABS: Appearance Urine Clear; Color Urine Yellow; Glucose Urine UA Negative (Negative); Leukocyte Esterase Urine Negative (Negative); Nitrite Urine Negative (Negative); Urine Blood Negative (Negative); Urine Ketones Negative (Negative); Urine Protein Negative (Neg-Trace)
[2024-07-06 07:55] LABS: Basophils Percent Auto 0.4 % (0-2); Eosinophils Absolute Auto 0.1 X10*3/uL (0.0-0.4); Eosinophils Percent Auto 1.4 % (0-4); Hematocrit 41.1 % (42.0-52.0); Hemoglobin 13.3 g/dl (14.0-18.0); Imm Gran Abs Auto 0.01 X10*3/uL (0.00-0.03); Imm Gran Pct Auto 0.2 % (0.0-0.4); Lymphocytes Absolute Auto 1.9 X10*3/uL (1.2-4.9); Lymphocytes Percent Auto 37.9 % (20-40); Mean Corpuscular HGB Conc 32.4 g/dl (31.0-36.0); Mean Corpuscular Hemoglobin 28.7 pg (27.0-33.0); Mean Corpuscular Volume 88.6 fL (80.0-98.0); Mean Platelet Volume 11.5 fL (9.4-12.4); Monocytes Absolute Auto 0.4 X10*3/uL (0.1-1.2); Monocytes Percent Auto 7.9 % (2-11); Neutrophils Absolute Auto 2.6 x10*3/uL (2.0-8.3); Neutrophils Percent Auto 52.2 % (45-73); Platelet Count 148 X10*3/uL (160-400); Red Blood Count 4.64 X10*6/uL (4.60-5.80); White Blood Count 4.9 X10*3/uL (4.8-10.8)
[2024-07-06 08:03] LABS: Alanine Aminotransferase 21 U/L (0-40); Albumin Level 4.1 g/dL (3.5-5.0); Alkaline Phosphatase 84 U/L (39-117); Anion Gap 10 (12-20); Aspartate Amino Transferase 19 U/L (5-37); Bilirubin Total 0.4 mg/dL (0.0-1.0); Blood Urea Nitrogen 15 mg/dL (9-16); Calcium 9.1 mg/dL (8.4-10.2); Carbon Dioxide 28 mmol/L (22-29); Chloride 111 mmol/L (96-108); Cholesterol 112 mg/dL (<200); Estimated Glomerular Filt Rate > 60; Glucose Fasting 95 mg/dL (60-99); HDL Cholesterol 48 mg/dL (>40); Iron 46 mcg/dL (45-160); LDL Cholesterol Calculated 57 mg/dL (<100); Percent Iron Saturation 18 % (15-50); Potassium 4.8 mmol/L (3.3-5.1); Sodium 144 mmol/L (135-145); Total Iron Binding Capacity 260 mcg/dL (228-428); Total Protein 6.4 g/dL (6.5-8.0); Triglycerides 39 mg/dL (<150); Unsaturated Iron Binding 214 ug/dL
[2024-07-06 08:16] LABS: PSA,Total (Free>4and<10) 7.45 ng/mL (0.00-4.00)
[2024-07-06 08:36] LABS: TSH reflex Free T4 3.33 uIU/mL (0.32-4.0); Vitamin D 25-OH Total 19.4 ng/mL (>30)
[2024-07-07 11:28] LABS: Free Prostate Spec Ag 1.3 ng/mL; Percent Free Prostate Spec Ag 20 % (calc) (>25); Prostate Specific Ag Total 6.6 ng/mL (< OR = 4.0)
== END 2024-07-06 06:18 | disposition home or self-care (01) ==
LOC: HO.LAB 06:17
PROVIDERS: PCP Nurse Practitioner Family
DX: Z00.00 Encounter for general adult medical examination without abnormal findings (principal); Z12.5 Encounter for screening for malignant neoplasm of prostate
CPT/HCPCS: 36415; 80053; 80061; 81003; 82306; 83540; 84153; 84154; 84443; 85025

== ENCOUNTER 2024-08-09 06:08 | Outpatient (REF) | payer MEDICARE, OTHER, SELFPAY ==
--- OUTSIDE RECORDS SUMMARY | 2024-08-09 06:11 | XMS_ITS | Patient Health Record ---
Author Organization [facility] Address [address] [place] [address] Care Team Providers Care Application Software Developer Name Role Phone NONE, NONE Primary Care Provider Hai Palacios Jr [phone] Results Component Value Reference Range Notes Pathology Reviewed date:04/21/2024 07:50:38 AM Interpretation: Performing Lab:[facility], [address] [place] [address] Notes/Report: Name: Sandhya Mendoza margretjerardo Age/Sex: 73/M : 1950 Unit#: [id number] Attend Dr: Bran Barnett DO Re04/15/24 Status : DIS IN Location: [facility] 376-1 Disch: 04/18/24 SPEC : [id number] RECD: 04/18/24 STATUS: BRYAN JACKSON NUM: [id number] JOSHUA: 04/15/24-8[address] [facility] [address]: Hai Hudson MD ENTERED: 04/18/24- 14 [...] and B Copies To: Hai Hudson MD [facility] [address] [place] [address] [address] [place], [place] [id number] CONTINUED ON NEXT PAGE Name: Sandhya Mendoza Age/Sex: 73/M : 1950 Unit#: [id number] Attend Dr: Bran Barnett DO Re04/15/24 Status : DIS IN Location: [facility] 376-1 Disch: 04/18/24 SPEC : [id number] RECD: 04/18/24 STATUS: BRYAN JACKSON NUM: [id number] JOSHUA: 04/15/24-1454 [facility] DR: Hai Hudson MD ENTERED: 04/18/24 SP TYPE: Surgical OTHR DR: Bran Barnett DO ORDERED: HE Stain/6, Gross Micro L4/2, IHC, Special st. 2/2, H. pylori, AB/PAS/2 Copies To: (Continued) Bran Barnett DO [address] [place] [address] Signed (si gnature on file) Tremaine Guardado MD 04/20/24 1103 END OF REPORT Pathology Reviewed date:07/01/2024 01:48:46 PM Interpretation: Performing Lab:[facility], [address] [place] [address] ST, [place] [address] Notes/Report: Name: Sandhya Mendoza Age/Sex: 73/M : 1950 Unit#: [id number] Attend Dr: Hai Hudson MD Re06/28/24 Status : [facility] Location: [facility] Disch: SPEC : [id number] RECD : 06/28/24 STATUS: BRYAN CHRISTINESantino NUM: [id number] JOSHUA: 06/28/24 [facility] [address]: Hai Hudson MD ENTERED: 06/28/24-10 10 [...] in toto in a cassette labeled B. [facility] Special studies orde red and [...] duodenal ulcer without hemorrhage AND without perforation (47000031) Chronic duodenal ulcer without hemorrhage or perforation (K26.7) Active confirmed Problem Adult hypertrophic pyloric stenosis (823687219) Adult hypertrophic pyloric stenosis (K31.1) Active confirmed Problem 61322764 Duodenal ulcer (K26.9) Active confirmed Problem 845698362 H. pylori infection (A04.8) Active confirmed Problem 522855418 Gastric outlet obstruction (K31.1) Active confirmed Encounters Encounter Location Date Provider Diagnosis [facility] Out[facility] [address] [place], [place] [phone] 06/28/2024 Hai Hudson Jr Acute duodenal ulcer without hemorrhage or perforation K26.3 and Erosive esophagitis K22.10 [facility] [address] [place] [address] 04/20/2024 Hai Hudson Jr Duodenal ulcer K26.9 ; Gastric outlet obstruction K31.1 and H. pylori infection A04.8 [facility] [address] [address] 07/01/2024 Hai Hudson Jr Assessments Encounter Date [...] Provider Name:Hai arthur Jr, 09/22/2024 02:35:00 PM, [address] [place] [address], Suite [facility], [place], [address], Insurance Providers Payer Name Payer Address Payer Phone Subscriber Number Group Number Insured Name Patient Relationship to Insured Coverage Start Date Coverage End Date Aetna (No Referral) [address] THOMAS AGUERO [id number] RAJIV KO Self - patient is the insured MEDICAID OF [facility] [address] [place] [address] [id number] CRISTINA RAJIV VALDES Self - patient is the insured
--- OUTSIDE RECORDS SUMMARY | 2024-08-09 06:12 | XMS_ITS ---
Author Organization [facility] Address 10 [facility] [address] [place] [address] Care Team Providers Care Forest Technology Professor Name Role Phone NONE, NONE Primary Care Provider Kenan Hudson Jr, Hai Mcgovern [phone] REASON FOR VISIT h.pylori,gastric outlet obstruction Encounters Encounter Location Date Provider Diagnosis [facility] Outpatient [address] [place] [phone] 06/28/2024 Hai Hudson Jr Acute duodenal ulcer without hemorrhage or perforation K26.3 and Erosive esophagitis K22.10 Assessments Encounter Date Diagnosis (ICD Code) Assessment Notes Treatment Notes Treatment Clinical Notes Section Notes 06/28/2024 Acute duodenal ulcer without hemorrhage or perforation (ICD-10 - K26.3) 06/28/2024 Erosive esophagitis (ICD-10 - K22.10) Plan Of Treatment Next Appt Details Provider Name:Hai arthur Jr, 09/22/2024 02:35:00 PM, [address] [place] [address], Suite [facility], [place], [address], Progress Notes * RAJIV LEODOB:10/11 (73 yo M)Acc No.[id number]:06/28/2024 EGD/MAC Patient:?RAJIV LEO Provider:?Hai Hudson MD :1950???Age:73 Y???Sex:Male Mark e:06/28/2024 Address:[address] [place], [place] [phone] Subjective: * Chief Complaints: * ???1. H.pylori,gastric outle t obstruction. * Medical History:? Objective: * Vitals:? Assessment: * Assessment: 1.?Acute duodenal ulcer with out hemorrhage or perforation - K26.3 (Primary)???2.?Erosive esophagitis - K22.10??? Plan: * Treatment: * Procedure Codes:?76666 UPPER GI ENDOSCOPY, BIOPSY * * The named appointment provid er may or may not be the originator of this progress note, and it is not deemed complete until electronically signed by the appointment provider. Sign off status: Pending * Provider:?Hai Hudson MD Date:?0 06/28/2024 Generated for Autumn garcia/Vidya/eTransmitting on:?08/09/2024 06:11 AM EDT
--- OUTSIDE RECORDS SUMMARY | 2024-08-09 06:12 | XMS_ITS ---
Author Organization [facility] [address] [place] [address] Care Team Providers Care Ethnic Studies Professor Name Role Phone NONE, NONE Primary Care Provider Kenan Hudson Jr, Hai Unavailable [phone] REASON FOR VISIT IS F/U APPT [...] Problem Status W/U Status Risk Notes Problem 53923441 Duodenal ulcer (K26.9) Active confirmed Problem 545089785 Gastric outlet obstruction (K31.1) Active confirmed Problem 241052173 H. pylori infection (A04.8) Active confirmed Encounters Encounter Location Date Provider Diagnosis [address] [address] 04/20/2024 Hai Hudson Jr Duodenal ulcer K26.9 [...] Name:Hai arthur Jr, 09/22/2024 02:35:00 PM, [address] [facility], [address], [place], [address], Progress Notes * RAJIV LEODOB:10/11 (73 yo M)Acc No.[id number]:04/20/2024 Patient:?RAJIV LEO :1950???Age:73 Y???Sex:Male Address:[address] [place] [address], [address] * Refills? Start Amoxicillin Capsule, 500 MG, [...] true * Date:? Generated for Autumn garcia/Vidya/eTransmitting on:?08/09/2024 06:11 AM EDT
--- OUTSIDE RECORDS SUMMARY | 2024-08-09 06:12 | XMS_ITS ---
Author Organization [facility] Address [address] [place] [address] Care Team Providers Care Glass Etcher Name Role Phone NONE, NONE Primary Care Provider Kenan Hudson Jr, Hai Mcgovern REASON FOR VISIT Pathology Encounters Encounter Location Date Provider Diagnosis [facility] [address] [place] [address] 07/01/2024 Hai Hudson Jr Plan Of Treatment Next Appt Details Provider Name:Hai arthur Jr, 09/22/2024 02:35:00 PM, [address], [address], [place], [address], Progress Notes * RAJIV LEODOB:[birth year] (73 yo M)Acc No.[id number]:07/01/2024 Patient:?NILESH LEOKSEY :1950???Age:73 Y???Sex:Male Address:[address] [place] [address], [address] * true * Date:? Generated for Celestinei jose/Vidya/eTransmitting on:?08/09/2024 06:12 AM EDT
[2024-08-09 07:31] LABS: Glucose Fasting 100 mg/dL (60-99)
[2024-08-09 08:01] LABS: PSA,Total (Free>4and<10) 8.95 ng/mL (0.00-4.00)
[2024-08-11 13:38] LABS: Free Prostate Spec Ag 1.3 ng/mL; Percent Free Prostate Spec Ag 16 % (calc) (>25); Prostate Specific Ag Total 8.2 ng/mL (< OR = 4.0)
== END 2024-08-09 06:09 | disposition home or self-care (01) ==
LOC: HO.LAB 06:08
DX: Z00.00 Encounter for general adult medical examination without abnormal findings (principal); R97.20 Elevated prostate specific antigen [PSA]; Z12.5 Encounter for screening for malignant neoplasm of prostate; Z13.1 Encounter for screening for diabetes mellitus
CPT/HCPCS: 36415; 82947; 84153; 84154

== ENCOUNTER 2024-08-16 13:18 | Outpatient (AMB) | payer MEDICARE, SELFPAY ==
--- OUTSIDE RECORDS SUMMARY | 2024-08-16 13:21 | XMS_ITS | Patient Health Record ---
Author Organization [facility] Address [address] [place] [address] Care Team Providers Care Air Crew Supervisor Name Role Phone NONE, NONE Primary Care Provider Hai Palacios Jr Results Component Value Reference Range Notes Pathology Reviewed date:04/21/2024 07:50:38 AM Interpretation: Performing Lab:[facility], [address] [place] [address] Notes/Report: Name: Sandhya Mendoza margretjerardo Age/Sex: 73/M : 1950 Unit#: [id number] Attend Dr: Bran Barnett DO Re04/15/24 Status : DIS IN Location: [facility] 376-1 Disch: 04/18/24 SPEC : [id number] RECD: 04/18/24 STATUS: BRYAN JACKSON NUM: [id number] JOSHUA: 04/15/24-2894 [facility] DR: Hai Hudson MD ENTERED: [...] and B Copies To: Hai Hudson MD [facility] [address] [place] [address] [address] [place], [place] [phone] CONTINUED ON NEXT PAGE Name: Sandhya Mendoza Age/Sex: 73/M : 1950 Unit#: [id number] Attend Dr: Bran Barnett DO Re04/15/24 Status : DIS IN Location: [facility] 376-1 Disch: 04/18/24 SPEC : [id number] RECD: 04/18/24 STATUS: BRYAN JACKSON NUM: [id number] JOSHUA: 04/15/24-1454 [facility] DR: Hai Hudson MD ENTERED: 04/18/24 SP TYPE: Surgical OTHR DR: Bran Barnett DO ORDERED: HE Stain/6, Gross Micro L4/2, IHC, Special st. 2/2, H. pylori, AB/PAS/2 Copies To: (Continued) Bran Barnett DO [address] [place] [address] Signed (si gnature on file) Tremaine Guardado MD 04/20/24 1103 END OF REPORT Pathology Reviewed date:07/01/2024 01:48:46 PM Interpretation: Performing Lab:[facility], [address] [place] [address] ST, [place] [address] Notes/Report: Name: Sandhya Mendoza Age/Sex: 73/M : 1950 Unit#: [id number] Attend Dr: Hai Hudson MD Re06/28/24 Status : [facility] Location: [facility] Disch: SPEC : [id number] RECD : 06/28/24 STATUS: BRYAN CHRISTINESantino NUM: [id number] JOSHUA: 06/28/24 [facility] DR: Hai Hudson MD ENTERED: [...] in toto in a cassette labeled B. [facility] Special studies orde red and performed: Immunostain [...] duodenal ulcer without hemorrhage AND without perforation (93772851) Chronic duodenal ulcer without hemorrhage or perforation (K26.7) Active confirmed Problem Adult hypertrophic pyloric stenosis (638726436) Adult hypertrophic pyloric stenosis (K31.1) Active confirmed Problem 77316388 Duodenal ulcer (K26.9) Active confirmed Problem 904729754 H. pylori infection (A04.8) Active confirmed Problem 198876032 Gastric outlet obstruction (K31.1) Active confirmed Encounters Encounter Location Date Provider Diagnosis [facility] Out[facility] [address] [place], [place] [phone] 06/28/2024 Hai Hudson Jr Acute duodenal ulcer without hemorrhage or perforation K26.3 and Erosive esophagitis K22.10 [facility] [address] [place] [address] 04/20/2024 Hai Hudson Jr Duodenal ulcer K26.9 ; Gastric outlet obstruction K31.1 and H. pylori infection A04.8 [facility] [address] [address] 07/01/2024 Hai Hudson Jr Assessments Encounter Date [...] Provider Name:Hai arthur Jr, 09/22/2024 02:35:00 PM, [address] [place] [address], Suite [facility], [place], [address], Insurance Providers Payer Name Payer Address Payer Phone Subscriber Number Group Number Insured Name Patient Relationship to Insured Coverage Start Date Coverage End Date Aetna (No Referral) [address] THOMAS AGUERO [id number] RAJIV KO Self - patient is the insured MEDICAID OF [facility] [address] [place] [address] [phone] [id number] CRISTINA RAJIV VALDES Self - patient is the insured
--- NOTE | 2024-08-16 13:23 | A.OFFPC_ITS ---
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 Snellen: Right: Left: Corrected vision: Reports that he was using readers, but has been without it with no issues STI screening: Colonoscopy: Colonoscopyx2 this year due to ulcer egd: done this year due to the patient ulcer Pap Smer:n/a PHQ-9:n/a Flu: decline COVID:decline Tdap:decline Diet:regular Exercise:Work related, chopping wood and work in the yard The patient is a 73-year-old male presenting with concerns of elevated PSA levels and potential prostate enlargement. These concerns emerged after routine screening revealed elevated PSA levels, corroborated by a CT scan indicating an enlarged prostate. The patient has yet to follow up with urology. He reports nocturia with increased frequency and burning urination primarily during the night. Daytime urinary habits remain relatively unaffected. Concurrently, his lab results indicate vitamin D deficiency, which has been managed through supplementation and increased sunlight exposure. He also has a history of duodenal ulcer, which was managed by a specialist, Dr. Hudson, without current issues. Blurred vision persists, mostly when reading, but surgical intervention has been declined. The patient has been declined being referral to Urology. Able to convince him to just see what his options are; referral was placed. He is very taoism and thinks that what is meant to be will. Reports that he trust in the lord the savior. [facility] Medical History (Updated 08/16/24 @ 14:12 by SIMBA Garcia) Hearing loss GERD (gastroesophageal reflux disease) BPH (benign prostatic hyperplasia) Gastric outlet obstruction Surgical History History of esophagogastroduodenoscopy (EGD) History of facial surgery History of hernia surgery Family History Mother Hypertension Diabetes Father No problems noted. Social History Household Members: Family Housing: House (3-family house) Are you a primary home health care social worker to a significant other at home: No Do you presently have visiting nurse or other home services: No Alcohol intake: never Patient Tobacco Use Status: Never used Tobacco e-Cigarette/Vaping Use: Never Used service: No Current occupational status: retired Cognitive needs: No Hearing needs: Yes Vision needs: No Questionnaire PHQ-9 Over the last 2 weeks, how often have you been bothered by any of the following problems? 1. Little interest or pleasure in doing things: not at all 2. Feeling down, depressed, or hopeless: not at all 3. Trouble falling or staying asleep, or sleeping too much: not at all 4. Feeling tired or having little energy: not at all 5. Poor appetite or overeating: not at all 6. Feeling bad about yourself - or that you are a failure or have let yourself or your family down: not at all 7. Trouble concentrating on things, such as reading the newspaper or watching television: not at all 8. Moving or speaking so slowly that other people could have noticed. Or the opposite - being so fidgety or restless that you have been moving around a lot more than usual: not at all 9. Thoughts that you would be better off or of hurting yourself in some wa y: not at all Total score: 0 Depression Screening Interpretation: Negative Depression Screening Done: Yes Source: Developed by Drs. Gume Wellington, Harriet Whatley, Juanpablo Carvajal and colleagues, with an educational lauren from [employer]. Thrive Questionnaire Date Thrive assessed: 08/16/24 I am a: Patient What is your living situation today?: I have a steady place to live Within the past 12 months, did the food you bought not last and you didn't have the money to get more?: I choose not to answer this question Within the past 12 months, did you worry whether your food would run out before you got money to buy more?: I choose not to answer this question Do you have trouble paying for medicines?: I choose not to answer this question Do you have trouble getting transportation to medical appointments?: I choose not to answer this question Do you have trouble paying your heating and electricity bill?: I choose not to answer this question Do you have trouble taking care of your child, family member or friend?: I choose not to answer this question Do you have trouble with day-to-day activities such as bathing, preparing meals, shopping, managing finances, etc.?: I choose not to answer this question Are you currently unemployed and looking for a job?: I choose not to answer this question Are you interested in more education?: I choose not to answer this question Please select the resources that you would like help with: None Currently or been in a relationship where the following occur: I choose not to answer THRIVE Score: 0 AUDIT C Alcohol Use Questionnaire (AUDIT-C) 1. How often do you have a drink containing alcohol?: Never 3. How often do you have six or more drinks on one occasion?: Never Total Score: 0 DOMINGA-7 AMB Questionnaire DOMINGA-7 Date DOMINGA - 7 assessed: 08/16/24 Feeling nervous, anxious, or on edge: 0 = Not at all Not being able to stop or control worryin = Not at all Worrying too much about different things: 0 = Not at all Trouble relaxin = Not at all Being so restless that it is hard to sit still: 0 = Not at all Becoming easily annoyed or irritable: 0 = Not at all Feeling afraid as if something awful might happen: 0 = Not at all Total DOMINGA-7 score (0-4 normal; 5-9 mild; 10-14 moderate; 15-21 severe): 0 Source: Developed by Drs. Gume Wellington, Juanpablo Schumacherke and colleagues, with an educational lauren from [employer]. Review of Systems Const Denies headache(s) Eyes Reports blurry vision (with reading) and Denies loss of vision ENT Denies vertigo, Denies dizziness, Denies headache(s), Reports hearing loss and Denies sore throat Card Denies chest pain, Denies leg edema and Denies lightheadedness Resp Denies cough, Denies hemoptysis and Denies wheezing GI Denies abdominal pain, Denies melena, Denies constipation, Denies diarrhea and Denies vomiting Denies dysuria, Reports nocturia, Denies urinary frequency, Denies urinary urgency and Reports other (intermittent burning with urination) Musc Denies arthralgias, Denies joint swelling, Denies numbness and Denies tingling Neuro Denies Abnormal speech present, Denies behavioral changes, Denies vertigo, Denies dizziness, Denies headache(s), Denies loss of vision, Denies memory loss, Denies numbness and Denies tingling Psych Denies anxiety, Denies behavioral changes, Denies depression, Denies memory loss and Denies panic attacks Raphael/Lymph Denies easy bleeding and Denies easy bruising Aller/Immun Denies wheezing Physical exam (Primary Care) Vital Signs: Last Vital Signs Temp 97.3 F 08/16/24 13:28 Pulse 68 08/16/24 13:28 BP 108/62 08/16/24 13:28 Pulse Ox 98 08/16/24 13:28 Oxygen Delivery Method Room Air 08/16/24 13:28 BMI result Body Mass Index 20.6 Tobacco/Smoking Status: Tobacco use Status Tobacco use date assessed 07/05/24 08/16/24 13:23 Patient Tobacco Use Status Never used Tobacco 08/16/24 13:23 e-Cigarette/Vaping Use Never Used 08/16/24 13:23 PHQ-9: PHQ-9 Score PHQ-9: Total score 0 08/16/24 14:11 Depression Screening Interpretation: Negative Thrive Assessment: Date of Thrive Assessment Date Thrive assessed 08/16/24 08/16/24 13:25 Currently or been in a relationship where the following occur: I choose not to answer Const General: healthy appearing, no acute distress, alert and awake Nutritional Appearance: well nourished Orientation/consciousness: oriented to person, oriented to place and oriented to time HENMT Ears: TM's normal bilaterally General nose exam: Normal nasal mucous membranes and turbinates present Eyes Conjunctivae: conjunctivae normal Sclerae: sclerae normal Pupils: Equal, round and reactive pupils present Neck Neck: Yes no lymphadenopathy and Yes no JVD Thyroid: Thyroid normal Carotids: no bruits Resp Effort & Inspection: normal respiratory effort and not tachypneic Auscultation: no crackles, no rales, no rhonchi and no wheezes Cardio Rate: regular rate Rhythm: regular rhythm Heart sounds: no murmurs and normal S1 and S2 GI Palpation (GI): Soft to palpation, nontender, no hepatomegaly and no splenomegaly Auscultation: normal bowel sounds Skin General skin exam: no rashes or lesions noted and dry skin Neuro General: oriented to person, oriented to place and oriented to time Cranial nerves: Yes CN's II-XII intact bilaterally and Yes Equal, round and reactive pupils present Speech: No Abnormal speech present Gait exam (Neuro): Normal gait present Motor exam (neuro): no tremor noted Deep tendon reflexes (DTR's): Right triceps reflex intensity grade: 2+, Left triceps reflex intensity grade: 2+, Rt Biceps (C5, C6): 2+, Left biceps reflex intensity grade: 2+, Right brachioradialis reflex intensity grade: 2+, Left brachioradialis reflex intensity grade: 2+, Right patellar reflex intensity grade: 2+ and Left patellar reflex intensity grade: 2+ Extrem Right upper extremity: full ROM Left upper extremity: full ROM Right lower extremity: full ROM; no edema Left lower extremity: full ROM; no edema Psych Mental Status: mental status grossly normal Speech and movement: Normal speech and movement present Affect: normal affect Attitude: cooperative Thought process: Normal thought process present Results Reviewed Results Reviewed: Laboratory Tests 07/06/24 06:39 WBC 4.9 RBC 4.64 Hgb 13.3 L Hct 41.1 L MCV 88.6 MCH 28.7 RDW 13.0 Plt Count 148 L MPV 11.5 Sodium 144 Potassium 4.8 Chloride 111 H Carbon Dioxide 28 Anion Gap 10 L BUN 15 Creatinine 0.89 Estimated GFR > 60 Fasting Glucose 95 Calcium 9.1 Iron 46 TIBC 260 % Saturation 18 Unsat Iron Binding 214 Total Bilirubin 0.4 AST 19 ALT 21 Alkaline Phosphatase 84 Total Protein 6.4 L Albumin 4.1 Triglycerides 39 Cholesterol 112 LDL Cholesterol, Calc 57 HDL Cholesterol 48 Total PSA 7.45 H 25-OH Vitamin D Total 19.4 L TSH 3.33 Coding Level of Care Code Est Pt Prev Care >65y(76685) Diagnoses Annual physical exam Z00.00 Anemia, unspecified type D64.9 Anemia type: unspecified type Sensorineural hearing loss (SNHL) of both ears H90.3 Hearing loss type: sensorineural Laterality: bilateral Benign prostatic hyperplasia (BPH) with straining on urination N40.1; R39.16 Lower urinary tract symptom detail: straining on urination Lower urinary tract symptom presence: symptoms present Gastroesophageal reflux disease without esophagitis K21.9 Esophagitis presence: without esophagitis Time Spent (min) 38 Assessment & Plan Assessment & Plan (1) Annual physical exam: Code(s): Z00.00 - Encounter for general adult medical examination without abnormal findings Category: Medical Plan: Preventative guidelines and recent labs reviewed with the patient. The patient isn't interested in most guidelines. Reports that he only had a colonoscopy because he got sick and end up in hospital with a GI bleed. The patient isn't interested in any vaccines. (2) Anemia: Code(s): D64.9 - Anemia, unspecified Category: Medical Qualifiers: Anemia type: unspecified type Qualified Code(s): D64.9 - Anemia, unspecified Plan: Mild anemia. The patient reports that he will fix this the natural way with foods that are high in iron (3) Hearing loss: Code(s): H91.90 - Unspecified hearing loss, unspecified ear Category: Medical Qualifiers: Hearing loss type: sensorineural Laterality: bilateral Qualified Code(s): H90.3 - Sensorineural hearing loss, bilateral Plan: For his hearing difficulties, the patient noted substantial hearing loss in both ears, complicating his engagement in noisy settings. Hearing aids were previously prescribed yet discontinued due to adverse effects. He has not yet consulted a specialist to reevaluate and address his auditory condition adequately. Patient reports that he has about 80-90% hearing loss in left ear in about 50% ear in loss in right ear. He was referred to ENT at previous visit. (4) BPH (benign prostatic hyperplasia): Code(s): N40.0 - Benign prostatic hyperplasia without lower urinary tract symptoms Category: Medical Qualifiers: Lower urinary tract symptom detail: straining on urination Lower urinary tract symptom presence: symptoms present Qualified Code(s): N40.1 - Benign prostatic hyperplasia with lower urinary tract symptoms; R39.16 - Straining to void Plan: While the patient was in the hospital he had a CT of his abdomen and pelvis that showed that he had an enlarged prostate. He was started on on Flomax for nocturia. PSA 8.95 the most recent labs. The patient continued to be adamant about not needing to see the specialist. It was able to convince the patient to see Urology on a informational basis to see what his options are. Referral placed (5) GERD (gastroesophageal reflux disease): Code(s): K21.9 - Gastro-esophageal reflux disease without esophagitis Category: Medical Qualifiers: Esophagitis presence: without esophagitis Qualified Code(s): K21.9 - Gastro-esophageal reflux disease without esophagitis Plan: Reinforced dietary restrictions Continue omeprazole 40 mg b.i.d. Orders: Orders Complete Blood Count Auto Diff 6 Months D64.9 - Anemia, unspecified, E55.9 - Vitamin D deficiency, unspecified Vitamin D 25-OH Total 6 Months D64.9 - Anemia, unspecified, E55.9 - Vitamin D deficiency, unspecified UA CC w/rflx Micro + Cult 6 Months D64.9 - Anemia, unspecified, E55.9 - Vitamin D deficiency, unspecified
[2024-08-16 13:28] VITALS: BP 108/62; PULSE 68; TEMP 36.3; O2SAT 98; BMI 20.6
== END 2024-08-16 14:16 | disposition home or self-care (01) ==
LOC: HO.HMCH 13:18
DX: Z00.00 Encounter for general adult medical examination without abnormal findings (principal); D64.9 Anemia, unspecified; H90.3 Sensorineural hearing loss, bilateral; N40.1 Benign prostatic hyperplasia with lower urinary tract symptoms; R39.16 Straining to void; K21.9 Gastro-esophageal reflux disease without esophagitis

== ENCOUNTER → 2024-08-16 13:18 | Outpatient (BNVA) | payer MEDICARE, OTHER, SELFPAY | DX: Z00.00 Encounter for general adult medical examination without abnormal findings (principal); R35.1 Nocturia; R97.20 Elevated prostate specific antigen [PSA]; N40.1 Benign prostatic hyperplasia with lower urinary tract symptoms; R30.9 Painful micturition, unspecified; R35.0 Frequency of micturition; R39.16 Straining to void; E55.9 Vitamin D deficiency, unspecified; D64.9 Anemia, unspecified; H90.3 Sensorineural hearing loss, bilateral; K21.9 Gastro-esophageal reflux disease without esophagitis | CPT/HCPCS: 96127; 99397 ==

== ENCOUNTER 2024-09-28 09:47 | Outpatient (AMB) | payer MEDICARE, SELFPAY ==
--- NOTE | 2024-09-28 10:15 | A.OFFVIS_ITS ---
Intake Visit Reasons: elevated PSA/ BPH Intake Note: New Patient presents for initial visit for Elevated PSA and BPH Urology Medications: Tamsulosin Blood Thinner: none PVR: 134ml's Electronic Components Assembler Required: No Accompanied by: Self / Same As Patient Allergies No Known Allergies Allergy (Verified 09/28/24 10:16) HPI Comments Details: Tomás is a very pleasant 73-year-old male patient of Dr. Phelps. He has a past medical history of GERD, gastric outlet obstruction, and hearing loss. He presents to the office today as a new patient for elevated PSA, enlarged prostate, and incomplete bladder emptying. In discussion with the patient today he reports having followed up with a parts casting machine operator for ongoing issues he has been experiencing with epigastric pain at which time a CT of the abdomen was ordered and performed. These results were reviewed and communicated with the patient today 04/16 enlarged prostate with bladder wall thickening. Findings may relate to chronic outlet obstruction. Cystitis is not excluded per radiology report. He reports intermittent episodes of urinary urgency, urinary frequency, and nocturia. He discusses being per prescribed Flomax and has found this somewhat helpful. In review of patient's chart it appears a PSA has been ordered and performed. These results were reviewed and communicated with the patient today. PSA: 07/15 6.6 % free PSA 20%, 08/14 8.2 % free PSA 16% EH was performed left-side of the prostate was noted to be boggy right side semi firm however no masses or nodules palpated. We did discussed potential for prostatitis as well as potential causes elevated PSA and bladder wall thickening noted on imaging. In office urinalysis results reviewed with the patient today. PVR 134 mL. We did discuss further treatment options and risks and benefits of these treatment options. When asked he denies any known family history of prostate cancer. All questions were answered. He denies incontinence, hematuria, foul smelling urine, flank pain, fever, and or chills. He otherwise offers no other issues or concerns at this time. [facility] Medical History Hearing loss GERD (gastroesophageal reflux disease) BPH (benign prostatic hyperplasia) Gastric outlet obstruction Surgical History History of esophagogastroduodenoscopy (EGD) History of facial surgery History of hernia surgery Family History Mother Hypertension Diabetes Father No problems noted. Social History Household Members: Family Housing: House (3-family house) Are you a primary rn homecare to a significant other at home: No Do you presently have visiting nurse or other home services: No Alcohol intake: never Patient Tobacco Use Status: Never used Tobacco e-Cigarette/Vaping Use: Never Used service: No Current occupational status: retired Cognitive needs: No Hearing needs: Yes Vision needs: No Review of Systems Const All systems reviewed & are unremarkable except as noted in HPI and below Physical Exam Const General: cooperative, comfortable, no acute distress, well developed, alert and awake Nutritional Appearance: thin Orientation/consciousness: patient oriented x3 Limitations: other limitations (Hard of hearing) HEENT Head: Yes normal to inspection, Yes normocephalic and Yes atraumatic Ears: hearing grossly normal bilaterally Eyes General: appearance normal, both eyes and all related structures Neck Neck: Yes normal visual inspection and Yes trachea midline Chest Chest palpation & inspection: normal inspection of the chest Resp Effort & Inspection: normal respiratory effort and able to speak in complete sentences Cardio Rate: regular rate GI Inspection: Yes normal to inspection General: Yes no CVA tenderness Back/Spine/Pelvis Back: no CVA tenderness Skin General skin exam: no rashes or lesions noted Neuro General: patient oriented x3 Extrem General: Yes normal to inspection Psych Appearance: grossly normal and well kempt Mental Status: mental status grossly normal Speech and movement: Normal speech and movement present and Clear speech present Affect: normal affect Attitude: cooperative Thought process: Normal thought process present Thought content: Normal thought content present Insight: Fair insight present (Psych) Judgement: Fair judgement present (Psych) Office Procedures Post Void Residual Post Residual Void Post Void Residual (PVR): 134 17977-Tbsm Void Residual by ultrasound Results AMB Urinalysis, Automated UA Leukoctes 0 Carter/uL Last Edit by Ayad Barraza, [facility] on 09/28/24 10:34 UA Nitrite Last Edit by Ayad Baez, [facility] on 09/28/24 10:34 UA Urobilinogen 0.2 mg/dL Last Edit by Jamesbrenden Baez, [facility] on 09/28/24 10:3 4 UA Protein 0 mg/dL Last Edit by Jamesbrenden Baez, [facility] on 09/28/24 10:34 UA pH 6.0 Last Edit by Jamesbrenden Baez, [facility] on 09/28/24 10:34 UA Blood 0 Jhonatan/uL Last Edit by Ayad Baez, [facility] on 09/28/24 10:34 UA Specific [place] 1.015 Last Edit by Jamesbrenden Baez, [facility] on 09/28/24 10: 34 UA Ketone Last Edit by Ayad Baez, [facility] on 09/28/24 10:34 UA Bilirubin 0 mg/dL Last Edit by Ayad Baez, [facility] on 09/28/24 10:34 UA Glucose 0 mg/dL Last Edit by [facility], [facility] on 09/28/24 10:34 Results Reviewed Results Reviewed: Laboratory Last Values Urine pH (Auto) 6.0 09/28/24 10:18 Specific [place] (Auto) 1.015 09/28/24 10:18 Urine Protein (Auto) 0 mg/dL 09/28/24 10:18 Glucose (UA)(Auto) 0 mg/dL 09/28/24 10:18 Urine Blood (Auto) 0 Jhonatan/uL 09/28/24 10:18 Urine Bilirubin (Auto) 0 mg/dL 09/28/24 10:18 Urine Urobilinogen (Auto) 0.2 mg/dL 09/28/24 10:18 Leukocyte Esterase (Auto) 0 Carter/uL 09/28/24 10:18 Date of Service: 04/14/24 Procedure(s): CT abdomen pelvis w IV con Findings: No consolidation or effusion. There is a small right renal cyst and small left renal cysts are also noted. Stomach is distended with fluid and there is suspected edema/inflammation in the gastric antrum and pyloric region. The patient is status post right anterior abdominal wall and right inguinal hernia repair. There is an enlarged prostate. There is mild bladder wall thickening. No acute fracture. IMPRESSION: 1. Stomach is greatly distended with fluid and there are apparent inflammatory changes / edema related to the antral and pyloric regions. Partial gastric outlet obstruction is suspected. Consider peptic ulcer disease. Can not exclude gastroparesis. 2. Enlarged prostate with bladder wall thickening. Findings may related to chronic outlet obstruction. Cystitis is not excluded. Assessment & Plan Assessment & Plan (1) Elevated PSA: Code(s): R97.20 - Elevated prostate specific antigen [PSA] Category: Medical (2) BPH (benign prostatic hyperplasia): Code(s): N40.0 - Benign prostatic hyperplasia without lower urinary tract symptoms Category: Medical Qualifiers: Lower urinary tract symptom presence: symptoms present Lower urinary tract symptom detail: straining on urination Qualified Code(s): N40.1 - Benign prostatic hyperplasia with lower urinary tract symptoms; R39.16 - Straining to void (3) Enlarged prostate: Code(s): N40.0 - Benign prostatic hyperplasia without lower urinary tract symptoms Category: Medical (4) Incomplete bladder emptying: Code(s): R33.9 - Retention of urine, unspecified Category: Medical (5) Bladder wall thickening: Code(s): N32.89 - Other specified disorders of bladder Category: Medical Plan In office urinalysis results reviewed the patient today; as noted above. Continue Flomax; refill provided. We discussed potential causes of enlarged prostate, bladder wall thickening, and elevated PSA. EH was performed; as noted above. Start Bactrim as discussed and prescribed. We discussed attempting to double void to assist with bladder emptying. Will obtain redraw of PSA 4-6 weeks status post completion of antibiotic therapy as prescribed. Will obtain retroperitoneal ultrasound for further assessment evaluation. We discussed importance of limiting fluids 2-3 hours prior to bed to decrease episodes of nocturia. Follow-up in 2-3 months with labs and imaging to be completed prior; or sooner with any issues, concerns, and or questions. Orders: Orders AMB Urinalysis Automated Today Z13.9 - Encounter for screening, unspecified AMB Post Void Residual by ultrasound Today N40.1 - Benign prostatic hyperplasia with lower urinary tract symptoms, R39.16 - Straining to void PSA,Total (Free>4and<10) 6 Weeks R97.20 - Elevated prostate specific antigen [PSA] US retroperitoneal comp Today N32.89 - Other specified disorders of bladder, N40.0 - Benign prostatic hyperplasia without lower urinary tract symptoms, N40.1 - Benign prostatic hyperplasia with lower urinary tract symptoms, R33.9 - Retention of urine, unspecified, R39.16 - Straining to void, R97.20 - Elevated prostate specific antigen [PSA] Medications: New sulfamethoxazole-trimethoprim 800-160 mg (Bactrim DS) 1 tab PO BID 28 tabs 0RF 14 days N39.0 - Urinary tract infection, site not specified Changed From tamsulosin 0.4 mg PO DAILY 30 caps 2RF To tamsulosin 0.4 mg PO DAILY 90 caps 1RF 90 days Patient Instructions: The patient had an opportunity to ask questions regarding the treatment plan. All questions were answered. Physical exam, labs, and imaging were discussed and reviewed in detail. As well as risks, benefits, and discussion of treatment choices. No major barriers to understanding were identified. The patient expressed understanding and agreement with the above treatment plan. The patient was made aware they should contact our office by phone for worsening of their current condition, the appearance of new symptoms, or with any questions or concerns. Compliance is encouraged with any medications and follow up testing that is ordered. It is a privilege to be allowed the opportunity to participate in? your urological care.? Again, if you have any questions or concerns If you have any questions or concerns please do not hesitate to contact me. The office is [phone]. This note is constructed using voice recognition software. While every effort has been made to ensure accuracy sand mixer machine errors may have been included. Yours sincerely, RON Jacob- Coding Level of Care Code New Pt Level 4 (58056) Diagnoses Elevated PSA R97.20 Benign prostatic hyperplasia (BPH) with straining on urination N40.1; R39.16 Lower urinary tract symptom presence: symptoms present Lower urinary tract symptom detail: straining on urination Enlarged prostate N40.0 Incomplete bladder emptying R33.9 Bladder wall thickening N32.89 CPT Codes Post Residual Void - PVR CPT Code: 02356-Lvze Void Residual by ultrasound ([id number])
--- OUTSIDE RECORDS SUMMARY | 2024-09-28 10:21 | XMS_ITS | Patient Health Record ---
Author Organization [facility] Address [address] [place] [id number] Care Team Providers Care Traffic Control Officer Name Role Phone Mike Phelps N.P. Primary Care Provider Hai Hernandez Jr Unavailable Allergies No Known Allergies Results Component Value Reference Range Notes Pathology Reviewed date:04/21/2024 07:50:38 AM Interpretation: Performing Lab:[facility], [address] [place] [phone] Notes/Report: Pathology Reviewed date:07/01/2024 01:48:46 PM Interpretation: Performing Lab:[facility], [address] [place] [phone] Notes/Report: Reason For Referral No Information Medications Medication SIG (Take, Route, Fr equency, Duration) Notes Start Date End Date Status Omeprazole Active Tamsulosin HCl Activ e Social History Tobacco Use: Social History Observation Description Date Details (start date - stop date) Never Smoker NA - NA Tobacco Control (Standard) Question Answer Notes Tobacco use: Nonsmoker AUDIT-C (Standard) Question Answer Notes Did you have a drink containing alcohol in the p ast year? No Points 0 Interpretation Negative Problems Problem Type SNOMED Code ICD Code Onset Dates Problem Status W/U Status Risk Notes Problem Chronic duodenal ulcer without hemorrhage AND without perforation (76300991) Chronic duodenal ulcer without hemorrhage or perforation (K26.7) Active confirmed Problem Adult hypertrophic pyloric stenosis (907183401) Adult hypertrophic pyloric stenosis (K31.1) Active confirmed Problem Erosive esophagitis (71062592) Erosive esophagitis (K22.10) Active confirmed Problem 20851430 Duodenal ulcer (K26.9) Active confirmed Problem 735050985 H. pylori infection (A04.8) Active confirmed Problem Colon cancer screening declined (03466138145390) Colon cancer screening declined (Z53.20) Active confirmed Problem 267122660 Gastric outlet obstruction (K31.1) Active confirmed Vital Signs Blood pressure diastolic 77 mm Hg 09/22/2024 Height 72 in 09/22/2024 Blood pressure systolic 111 mm Hg 09/22/2024 Weight 151 lbs 09/22/2024 BMI 20.48 kg/m2 09/22/2024 Encounters Encounter Location Date Provider Diagnosis [facility] [place] [address] [place] [id number] 06/28/2024 Hai Hudson Jr Acute duodenal ulcer without hemorrhage or perforation K26.3 and Erosive esophagitis K22.10 [facility] [address] [phone] 09/22/2024 Hai Hudson Jr Duodenal ulcer K26.9 ; Erosive esophagitis K22.10 ; H. pylori infection A04.8 and Colon cancer screening declined Z53.20 [facility] [address] [place] [phone] 04/20/2024 Hai Hudson Jr Duodenal ulcer K26.9 ; Gastric outlet obstruction K31.1 and H. pylori infection A04.8 [facility] [address] [phone] 07/01/2024 Hai Hudson Jr Assessments Encounter Date Diagnosis (ICD Code) Assessment Notes Treatment Notes Treatment Clinical Notes Section Notes 06/28/2024 Acute duodenal ulcer without hemorrhage or perforation (ICD-10 - K26.3) 06/28/2024 Erosive esophagitis (ICD-10 - K22.10) 09/22/2024 Erosive esophagitis (ICD-10 - K22.10) \Currently, he is doing well. He will stay off omeprazole for the time being. He has no history of smoking or drinking and does not use NSAIDs therefore chronic PPI therapy is optional. He has no reflux since stopping his PPI. We discussed his endoscopy results. His H. pylori infection has been treated. We discussed colorectal cancer screening with colonoscopy. He declines this at this time. 09/22/2024 Duodenal ulcer (ICD-10 - K26.9) \Currently, he is doing well. He will stay off omeprazole for the time being. He has no history of smoking or drinking and does not use NSAIDs therefore chronic PPI therapy is optional. He has no reflux since stopping his PPI. We discussed his endoscopy results. His H. pylori infection has been treated. We discussed colorectal cancer screening with colonoscopy. He declines this at this time. 04/20/2024 Duodenal ulcer (ICD-10 - K26.9) 04/20/2024 Gastric outlet obstruction (ICD-10 - K31.1) 09/22/2024 H. pylori infection (ICD-10 - A04.8) \Currently, he is doing well. He will stay off omeprazole for the time being. He has no history of smoking or drinking and does not use NSAIDs therefore chronic PPI therapy is optional. He has no reflux since stopping his PPI. We discussed his endoscopy results. His H. pylori infection has been treated. We discussed colorectal cancer screening with colonoscopy. He declines this at this time. 04/20/2024 H. pylori infection (ICD-10 - A04.8) 09/22/2024 Colon cancer screening declined (ICD-10 - Z53.20) \Currently, he is doing well. He will stay off omeprazole for the time being. He has no history of smoking or drinking and does not use NSAIDs therefore chronic PPI therapy is optional. He has no reflux since stopping his PPI. We discussed his endoscopy results. His H. pylori infection has been treated. We discussed colorectal cancer screening with colonoscopy. He declines this at this time. Plan Of Treatment Future Test Test Name Order Date UPPER GI ENDOSCOPY 04/21/2024 Insurance Providers Payer Name Payer Address Payer Phone Subscriber Number Group Number Insured Name Patient Relationship to Insured Coverage Start Date Coverage End Date [employer] (No Referral) [address] [place], [place] [id number] RAJIV KO Self - patient is the insured 4 MEDICAID OF [employer] [address] [place] [address] [id number] RAJIV KO Self - patient is the insured Medical (General) History Medical History History ICD Code Duodenal ulcer with gastric outlet obstruction 04/16, follow-up endoscopy 07/15, completely healed ulcer, biopsies showed no H. pylori or Cano's esophagus H. pylori infection resolved BPH with elevated PSA Low vitamin D Surgical History Surgery Date(Month/Year) hernia repair
== END 2024-09-28 11:05 | disposition home or self-care (01) ==
LOC: HO.HUSH 09:48
PROVIDERS: Visit Provider Nurse Practitioner Family
DX: R97.20 Elevated prostate specific antigen [PSA] (principal); N40.1 Benign prostatic hyperplasia with lower urinary tract symptoms; R39.16 Straining to void; N40.0 Benign prostatic hyperplasia without lower urinary tract symptoms; R33.9 Retention of urine, unspecified; N32.89 Other specified disorders of bladder; Z13.9 Encounter for screening, unspecified
CPT/HCPCS: 99204

== ENCOUNTER → 2024-09-28 09:47 | Outpatient (BNVA) | payer MEDICARE, SELFPAY | PROVIDERS: Visit Provider Nurse Practitioner Family | DX: R97.20 Elevated prostate specific antigen [PSA] (principal); R39.15 Urgency of urination; R35.0 Frequency of micturition; R35.1 Nocturia; N40.1 Benign prostatic hyperplasia with lower urinary tract symptoms; R39.16 Straining to void; N40.0 Benign prostatic hyperplasia without lower urinary tract symptoms; R33.9 Retention of urine, unspecified; N32.89 Other specified disorders of bladder | CPT/HCPCS: 51798; 81003; 99202 ==

== ENCOUNTER → 2024-10-12 05:40 | Outpatient (BNV) | payer MEDICARE, SELFPAY | PROVIDERS: Emergency Provider Emergency Medicine; Visit Provider Radiology Diagnostic Radiology | DX: I26.09 Other pulmonary embolism with acute cor pulmonale (principal); R07.89 Other chest pain | CPT/HCPCS: 71045; 71275 ==

== ENCOUNTER 2024-10-12 06:28 | Inpatient (IN) | payer MEDICARE, SELFPAY ==
[2024-10-12] VITALS (8 sets, daily range): BP systolic 93–133; BP diastolic 43–63; PULSE 72–95; RESP 11–22; TEMP 36.4–37.5; O2SAT 94–97; BMI 20.2; BMI 21.0
--- NOTE | 2024-10-12 | ECG_ITS ---
Test Reason : CHEST PAIN Blood Pressure : */* mmHG Vent. Rate : 87 BPM Atrial Rate : 87 BPM P-R Int : 150 ms QRS Dur : 80 ms QT Int : 350 ms P-R-T Axes : 48 59 64 degrees QTcB Int : 421 ms Normal sinus rhythm Normal ECG When compared with ECG of 14-Apr-2024 18:19, Premature atrial complexes are no longer Present Referred By: Generic ED Physician Electronically Signed By: Reymundo Ceja
--- NOTE | ~2024-10-12 | CT_ITS ---
EXAMINATION: CT CHEST ANGIOGRAPHY WITH IV CONTRAST INDICATION: Rt pleuritic pain COMPARISON: There are no prior studies available for comparison. TECHNIQUE: Helical CT scan of the chest was performed following administration of intravenous contrast (65 mL Omnipaque 350). The contrast bolus was timed to optimally opacify the pulmonary arteries. Thin sections were obtained through the pulmonary arteries. Coronal and sagittal reformatted images were generated. 3D/MIP reconstructed images are also obtained and reviewed. This CT exam was performed with one or more of the following dose reduction techniques: automated exposure control, adjustment of the mA and/or kV according to patient size, use of iterative reconstruction technique. DLP: 235 mGy-cm CHEST: THYROID: The thyroid gland is unremarkable. PULMONARY ARTERIES: There are intraluminal filling defects in the right middle lobe, right lower lobe, and left lower lobe pulmonary arterial branches, consistent with pulmonary emboli. There is no saddle embolus. LUNGS: There is groundglass and airspace opacity in the lateral segment of the right middle lobe, highly suspicious for an infarct. There is subsegmental atelectasis in the right lower lobe. The left lung is clear. MEDIASTINUM: There is no mediastinal lymphadenopathy. HARSH: There is no hilar lymphadenopathy. CARDIOVASCULATURE: There is dilatation of the right ventricle consistent with right heart strain. There is no pericardial effusion. The thoracic aorta is normal in caliber. DEGREE OF CORONARY CALCIFICATION: mild PLEURA: There is a small to moderate right pleural effusion. There is no left pleural effusion. No pneumothorax. MAIN AIRWAYS: The mainstem bronchi and proximal branches are patent. AXILLA: There is no axillary lymphadenopathy. UPPER ABDOMEN: The visualized portions of the liver, spleen, and adrenals are unremarkable. BONES AND SOFT TISSUES: Unremarkable. CT/CT angio chest PE protocol IMPRESSION: Pulmonary emboli in the right middle lobe and in both lower lobes with right heart strain. Findings highly suspicious for an infarct in the lateral segment of the right lower lobe. Small to moderate right pleural effusion. Findings were discussed with Dr. Leavitt in the emergency room on 10/12/2024 at 8:15 AM. Electronically signed by: Gume Hussein MD 10/12/2024 08:19 AM EDT RP
--- NOTE | ~2024-10-12 | XR_ITS ---
EXAMINATION: XR CHEST CLINICAL INFORMATION: chest pain COMPARISON: April 15, 2024. TECHNIQUE: Frontal view of the chest was obtained. FINDINGS: Hellier-shaped opacity in the right lower hemithorax. Prominence of the interstitial markings. Pulmonary reticular pattern. No pneumothorax. Cardiomediastinal silhouette size is normal. Mild multilevel spondylosis, axial skeleton. XR/XR chest 1V IMPRESSION: Right-sided pleural effusion, moderate to large volume. Chronic interstitial lung disease. Airspace disease, right lung base/right middle lung lobe cannot be excluded. Electronically signed by: Zander Kennedy MD 10/12/2024 07:49 AM EDT
--- NOTE | ~2024-10-12 | US_ITS ---
EXAMINATION: US TRIPLEX LOWER EXTREMITY, BILATERAL CLINICAL INFORMATION: Pulmonary embolus, deep venous thrombosis COMPARISON: None available. TECHNIQUE: Color-flow triplex imaging with spectral analysis and compression Doppler were performed on the bilateral lower extremities. FINDINGS: Right leg: Respiratory variation, normal compression and augmented flow are noted throughout the lower extremity. The visualized common femoral vein, superficial femoral vein, profunda femoral vein, popliteal vein and midcalf peroneal and posterior tibial venous segments show no evidence of deep venous thrombosis. Left leg: Heterogeneous hypo and isoechoic material is present within the femoral vein at the confluence with the common femoral vein extending into the calf veins. Vessels are partially compressible with flow. Common and deep femoral veins are patent and compressible. US/US venous duplex LE BI IMPRESSION: Left leg is positive for deep venous thrombosis, nonocclusive. No right lower extremity DVT. Electronically signed by: Marcellus Adorno MD 10/13/2024 04:20 PM EDT
[2024-10-12 06:53] LABS: Hematocrit 38.5 % (42.0-52.0); Hemoglobin 13.1 g/dl (14.0-18.0); Mean Corpuscular HGB Conc 34.0 g/dl (31.0-36.0); Mean Corpuscular Hemoglobin 28.8 pg (27.0-33.0); Mean Corpuscular Volume 84.6 fL (80.0-98.0); NRBC Abs Auto 0.000 X10*3/uL (0.0-0.012); NRBC Pct Auto 0.0 /100WBC (0.0-0.2); Platelet Count 171 X10*3/uL (160-400); Red Blood Count 4.55 X10*6/uL (4.60-5.80); White Blood Count 6.8 X10*3/uL (4.8-10.8)
--- OUTSIDE RECORDS SUMMARY | 2024-10-12 06:59 | XMS_ITS ---
Author Name [facility] Organization Unknown Care Team Organization Name Specialty Phone Email Start Date End Da te [facility] 01/28/2022 11/09/2023
[2024-10-12 07:10] LABS: INTERNATIONAL NORM RATIO 1.2 (0.9-1.1); Prothrombin Time 13.4 SEC (10.9-12.4)
[2024-10-12 07:13] LABS: Alanine Aminotransferase 16 U/L (0-40); Albumin Level 4.2 g/dL (3.5-5.0); Alkaline Phosphatase 73 U/L (39-117); Anion Gap 12 (12-20); Aspartate Amino Transferase 21 U/L (5-37); Blood Urea Nitrogen 13 mg/dL (9-16); Calcium 8.6 mg/dL (8.4-10.2); Carbon Dioxide 26 mmol/L (22-29); Chloride 105 mmol/L (96-108); Creatinine Clr Calc Pharmacy 54.1; Estimated Glomerular Filt Rate > 60; Magnesium 1.9 mg/dL (1.6-2.6); Potassium 3.9 mmol/L (3.3-5.1); Sodium 139 mmol/L (135-145); Total Protein 6.4 g/dL (6.5-8.0)
[2024-10-12 07:20] LABS: B Type Natriuretic Peptide 77 pg/mL (<100)
[2024-10-12 07:21] LABS: Troponin-I High Sensitivity < 2.7 ng/L (<3.5-35.0)
[2024-10-12] MEDS: iohexoL 350 MG/ML 100 ML INFUS..BTL 65 ML IV (08:02)
--- NOTE | 2024-10-12 08:12 | ED.CHESTPAIN ---
HPI - Chest Pain General Chief Complaint: Chest Pain Stated Complaint: Gen Med Time Seen by Provider: 10/12/24 07:23 Source: patient Mode of arrival: ambulatory Limitations: no limitations History of Present Illness HPI narrative: This is a 74 years old male presented to the emergency department with a chief complaint of right side the chest pain since Thursday, he has no exertional symptoms he has no diaphoresis the pain is clearly pleuritic MD complaint: chest pain Onset (ago): day(s) (3) Timing of current episode: episodic Onset: during rest Pain location: right chest Pain radiation: none Severity: moderate Quality: aching Relieving factors: nothing Exacerbating factors: nothing Context: recent illness Associated symptoms: nausea Risk Factors Coronary artery disease risk factors: none Related Data Previous Rx's ?Medication ?Instructions ?Recorded sulfamethoxazole 800 1 tab PO BID 14 days #28 tabs 09/28/24 mg-trimethoprim 160 mg tablet (Bactrim DS) tamsulosin 0.4 mg capsule 0.4 mg PO DAILY 90 days #90 caps 09/28/24 Allergies Allergy/AdvReac Type Severity Reaction Status Date / Time No Known Allergies Allergy Verified 10/12/24 06:36 Review of Systems Constitutional: Constitutional: Reports no additional constitutional complaints Cardiovascular: Cardiovascular: Reports no additional cardiovascular complaints PMFSH Past Medical History Medical History Hearing loss GERD (gastroesophageal reflux disease) BPH (benign prostatic hyperplasia) Gastric outlet obstruction Surgical History History of esophagogastroduodenoscopy (EGD) History of facial surgery History of hernia surgery Family History Family History Mother Hypertension Diabetes Father No problems noted. Social History Social History Household Members: Family Housing: House (3-family house) Are you a primary career services coordinator to a significant other at home: No Do you presently have visiting nurse or other home services: No Alcohol intake: never Patient Tobacco Use Status: Never used Tobacco Smoked in Last 30 Days: No e-Cigarette/Vaping Use: Never Used Use of substances other than those prescribed or required for medical reasons: No Advance Directives: No Advance Directives Information Provided: Yes service: No Current occupational status: retired Cognitive needs: No Hearing needs: Yes Vision needs: No Physical Exam Exam: Exam: Mild distress Vital Signs: Vital Signs: Last Vital Signs Temp 99.1 F 10/12/24 08:49 Pulse 75 10/12/24 08:49 Resp 12 10/12/24 08:49 BP 104/43 L 10/12/24 08:49 Pulse Ox 97 10/12/24 08:49 O2 Del Method Room Air 10/12/24 08:49 BMI result Body Mass Index 21.0 Const: General: cooperative Nutritional Appearance: average body habitus Orientation/consciousness: oriented to time HEENT: Head: Yes normal to inspection Ears: hearing grossly normal bilaterally General nose exam: Normal external nose present Face and sinus: Yes normal facial exam Mouth: Normal oral and palatal mucosa present Throat: Yes posterior oropharynx normal Neck: Neck: Yes normal visual inspection Chest: Other: Decreased breath sounds in the right Resp: Effort & Inspection: able to speak in complete sentences Auscultation: no crackles, no rales and no rhonchi Cardio: Jugular venous distension: no JVD Rate: regular rate GI: Inspection: Yes normal to inspection Palpation (GI): Soft to palpation Skin: General skin exam: no rashes or lesions noted Lesions: no lesions Rashes: no rashes Wounds: no wounds Neuro: General: oriented to time Extrem: General: Yes normal to inspection and Yes capillary refill normal Medications Administered Generic Name Dose Route Start Last Admin Trade Name Freq PRN Reason Stop Dose Admin Heparin Sodium/Sodium Chloride 25,000 unit in 250 mls @ 0 mls/hr 10/12/24 08:45 10/12/24 09:25 Heparin Sodium,Porcine/1/2ns IVCONT 14 units/kg/hr .Q0M YUDY 9.83 mls/hr Protocol Administration Per Protocol Discontinued Medications Generic Name Dose Route Start Last Admin Trade Name Freq PRN Reason Stop Dose Admin Heparin Sodium (Porcine) 5,400 unit 10/12/24 08:16 10/12/24 09:23 Heparin Sodium,Porcine 5,000 Unit/Ml Vial 80 unit/kg (5400 unit) 10/12/24 08:17 5,400 unit IVPUSH Administration ONCE ONE Iohexol 65 ml 10/12/24 08:01 10/12/24 08:02 Iohexol 350 Mg/Ml 100 Ml Infus..Btl IV 10/12/24 08:02 65 ml ONCE ONE Administration Medical Decision Making Medical Decision Making [facility] Narrative: Patient presented to the emergency department with a right pleuritic chest pain we will obtain labs electrocardiogram Differential Diagnosis Differential Diagnoses: The differential diagnosis associated with the presentation includes Acute coronary syndrome/pleurisy/PE Admission/Observation Consideration of admission/observation: Escalation of care including admission/observation considered Consult Healthcare Provider Management of the patient was discussed with: Hospitalist Dr Ericka Murillo Lab Data [facility] Lab Attestation statement: I reviewed the patient's lab results. 10/12/24 08:45 10/12/24 06:45 Labs: Lab Results 10/12/24 10/12/24 10/12/24 Range/Units 06:45 07:48 08:45 WBC 6.8 6.4 (4.8-10.8) X10*3/uL RBC 4.55 L 4.21 L (4.60-5.80) X10*6/uL Hgb 13.1 L 12.0 L (14.0-18.0) g/dl Hct 38.5 L 36.1 L (42.0-52.0) % MCV 84.6 85.7 (80.0-98.0) fL MCH 28.8 28.5 (27.0-33.0) pg MCHC 34.0 33.2 (31.0-36.0) g/dl RDW 13.2 13.2 (11.0-16.0) % Plt Count 171 163 (160-400) X10*3/uL MPV 9.5 9.9 (9.4-12.4) fL Absolute Nucleated RBC 0.000 0.000 (0.0-0.012) X10*3/uL Nucleated RBC % (auto) 0.0 0.0 (0.0-0.2) /100WBC PT 13.4 H Cancelled (10.9-12.4) SEC INR 1.2 H (0.9-1.1) APTT aPTT Heparin Protocol (53-77.9) SEC Sodium 139 (135-145) mmol/L Potassium 3.9 (3.3-5.1) mmol/L Chloride 105 (96-108) mmol/L Carbon Dioxide 26 (22-29) mmol/L Anion Gap 12 (12-20) BUN 13 (9-16) mg/dL Creatinine 1.16 (0.5-1.4) mg/dL Estim Creat Clear Calc 54.1 Estimated GFR > 60 Random Glucose 124 H (60-115) mg/dL Lactic Acid 0.9 (0.5-2.0) mmol/L Calcium 8.6 (8.4-10.2) mg/dL Magnesium 1.9 (1.6-2.6) mg/dL Total Bilirubin 0.8 (0.0-1.0) mg/dL AST 21 (5-37) U/L ALT 16 (0-40) U/L Alkaline Phosphatase 73 (39-117) U/L Troponin I High Sens < 2.7 (<3.5-35.0) ng/L B-Natriuretic Peptide 77 (<100) pg/mL Total Protein 6.4 L (6.5-8.0) g/dL Albumin 4.2 (3.5-5.0) g/dL 10/12/24 10/12/24 Range/Units 08:45 08:45 WBC (4.8-10.8) X10*3/uL RBC (4.60-5.80) X10*6/uL Hgb (14.0-18.0) g/dl Hct (42.0-52.0) % MCV (80.0-98.0) fL MCH (27.0-33.0) pg MCHC (31.0-36.0) g/dl RDW (11.0-16.0) % Plt Count (160-400) X10*3/uL MPV (9.4-12.4) fL Absolute Nucleated RBC (0.0-0.012) X10*3/uL Nucleated RBC % (auto) (0.0-0.2) /100WBC PT 13.8 H (10.9-12.4) SEC INR Cancelled 1.2 H (0.9-1.1) APTT Cancelled aPTT Heparin Protocol 30.0 L (53-77.9) SEC Sodium (135-145) mmol/L Potassium (3.3-5.1) mmol/L Chloride (96-108) mmol/L Carbon Dioxide (22-29) mmol/L Anion Gap (12-20) BUN (9-16) mg/dL Creatinine (0.5-1.4) mg/dL Estim Creat Clear Calc Estimated GFR Random Glucose (60-115) mg/dL Lactic Acid (0.5-2.0) mmol/L Calcium (8.4-10.2) mg/dL Magnesium (1.6-2.6) mg/dL Total Bilirubin (0.0-1.0) mg/dL AST (5-37) U/L ALT (0-40) U/L Alkaline Phosphatase (39-117) U/L Troponin I High Sens (<3.5-35.0) ng/L B-Natriuretic Peptide (<100) pg/mL Total Protein (6.5-8.0) g/dL Albumin (3.5-5.0) g/dL Independent Interpretation I performed an independent interpretation of an: CT Scan Interpretation: pleural effusion PE Radiology Impression Radiologist Impression: CT/CT angio chest PE protocol IMPRESSION: Pulmonary emboli in the right middle lobe and in both lower lobes with right heart strain. Findings highly suspicious for an infarct in the lateral segment of the right lower lobe. Small to moderate right pleural effusion. Findings were discussed with Dr. Leavitt in the emergency room on 10/12/2024 at 8:15 AM. Electronically signed by: Gume Hussein MD 10/12/2024 08:19 AM EDT RP Dictated By: Gume Hussein MD Signed By: <Electronically signed by Gmue Hussein MD in OV> External Record Review External record reviewed: Inpatient record Critical Care Time Critical Care Time Critical Care Time: Yes Total Critical Care Time: 60 Attestation: Pulmonary emboli with right heart strain IV heparin Discharge Plan Discharge Clinical Impression: Pulmonary infarct, Pleural effusion Pulmonary emboli Qualifiers: Pulmonary embolism type: unspecified Chronicity: acute Acute cor pulmonale presence: without acute cor pulmonale Qualified Code(s): I26.99 - Other pulmonary embolism without acute cor pulmonale Patient Disposition: Admitted As Inpatient Interventions: Admission Worksheet (ED) Last Done: 10/12/24 09:46
[2024-10-12 09:01] LABS: Hematocrit 36.1 % (42.0-52.0); Hemoglobin 12.0 g/dl (14.0-18.0); Mean Corpuscular HGB Conc 33.2 g/dl (31.0-36.0); Mean Corpuscular Hemoglobin 28.5 pg (27.0-33.0); Mean Corpuscular Volume 85.7 fL (80.0-98.0); NRBC Abs Auto 0.000 X10*3/uL (0.0-0.012); NRBC Pct Auto 0.0 /100WBC (0.0-0.2); Platelet Count 163 X10*3/uL (160-400); Red Blood Count 4.21 X10*6/uL (4.60-5.80); White Blood Count 6.4 X10*3/uL (4.8-10.8)
[2024-10-12 09:11] LABS: INTERNATIONAL NORM RATIO 1.2 (0.9-1.1); Prothrombin Time 13.8 SEC (10.9-12.4)
[2024-10-12 09:13] LABS: PTT Heparin Drip 30.0 SEC (53-77.9)
[2024-10-12] MEDS: Heparin Sodium,Porcine/1/2NS 25,000 UNIT/250 ML IV.SOLN 9.83 UNIT IVCONT (09:25)
--- NOTE | 2024-10-12 09:34 | PM.IMHP ---
History of Present Illness Date of Service: 10/12/24 Chief Complaint: Right sided chest pain 74-year-old male with a history of BPH, GERD, hearing loss in the gastric outlook obstruction. He presents with a right-sided chest pain onset about 3 days earlier. He reports no trauma no associated shortness of breath or bill chest pain. Workup in the emergency room with a CT a of the chest has revealed pulmonary emboli bilaterally with a right ventricular strain. He is not hypoxic and has no other respiratory symptoms failure he is initiated on heparin drip. He reported no obvious risk factors he has acquired active and has not taken any long-term as of late. Of note he has been on Bactrim for treatment of the infection related to the prostate per his report. Review of Systems Review of Systems: Gen: no fever Resp: no sob, no cough CV: no chest, no LABOY, no leg edema GI: No n/v, no abd pain Neuro: No confusion Yes all other systems are reviewed and are negative [facility] Medical History Hearing loss GERD (gastroesophageal reflux disease) BPH (benign prostatic hyperplasia) Gastric outlet obstruction Family History Mother Hypertension Diabetes Father No problems noted. Surgical History History of esophagogastroduodenoscopy (EGD) History of facial surgery History of hernia surgery Social History Household Members: Family and Children Housing: Apartment Are you a primary memory care program resident to a significant other at home: No Do you presently have visiting nurse or other home services: No Alcohol intake: never Patient Tobacco Use Status: Never used Tobacco e-Cigarette/Vaping Use: Never Used service: No Current occupational status: retired Cognitive needs: No Hearing needs: Yes Vision needs: No Meds Allergies Allergy/AdvReac Type Severity Reaction Status Date / Time No Known Allergies Allergy Verified 10/12/24 06:36 Active Medications: Current Medications Heparin Sodium (Porcine) (Heparin Sodium,Porcine 5,000 Unit/Ml Vial) 2,800 unit 40 unit/kg (2800 unit) IVPUSH PROTOCOL BOLUS PRN; Protocol PRN Reason: 40 unit/kg - Heparin Protocol Heparin Sodium (Porcine) (Heparin Sodium,Porcine 5,000 Unit/Ml Vial) 5,600 unit 80 unit/kg (5600 unit) IVPUSH PROTOCOL BOLUS PRN; Protocol PRN Reason: 80 unit/kg - Heparin Protocol Heparin Sodium/Sodium Chloride (Heparin Sodium,Porcine/1/2ns) 25,000 unit in 250 mls @ 0 mls/hr IVCONT .Q0M YUDY; Protocol Last Admin: 10/12/24 09:25 Dose: 14 units/kg/hr, 9.83 mls/hr Physical Exam Vital Signs and Narrative: Vital Signs: Last Vital Signs Temp 99.1 F 10/12/24 08:49 Pulse 75 10/12/24 08:49 Resp 12 10/12/24 08:49 BP 104/43 L 10/12/24 08:49 Pulse Ox 97 10/12/24 08:49 O2 Del Method Room Air 10/12/24 08:49 BMI result Body Mass Index 21.0 Const: Other: General: AO X 3, no acute distress Resp: CTA bilateral CVS: S1,S2,RRR GI: +BS, NT, no distention Skin: No rash ext: left leg bigger than the right, no tenderness Neuro: motor grossly intact Psych: appropriate affect Results Labs 10/13/24 04:18 10/13/24 04:18 Labs: Laboratory Results - last 24 hr 10/12/24 10/12/24 10/12/24 06:45 07:48 08:45 MCV 84.6 85.7 MCH 28.8 28.5 MCHC 34.0 33.2 RDW 13.2 13.2 Plt Count 171 163 MPV 9.5 9.9 Absolute Nucleated RBC 0.000 0.000 Nucleated RBC % (auto) 0.0 0.0 PT 13.4 H Cancelled INR 1.2 H APTT aPTT Heparin Protocol Anion Gap 12 Estim Creat Clear Calc 54.1 Estimated GFR > 60 Random Glucose 124 H Lactic Acid 0.9 Calcium 8.6 Magnesium 1.9 Total Bilirubin 0.8 AST 21 ALT 16 Alkaline Phosphatase 73 B-Natriuretic Peptide 77 Total Protein 6.4 L Albumin 4.2 10/12/24 10/12/24 08:45 08:45 MCV MCH MCHC RDW Plt Count MPV Absolute Nucleated RBC Nucleated RBC % (auto) PT 13.8 H INR Cancelled 1.2 H APTT Cancelled aPTT Heparin Protocol 30.0 L Anion Gap Estim Creat Clear Calc Estimated GFR Random Glucose Lactic Acid Calcium Magnesium Total Bilirubin AST ALT Alkaline Phosphatase B-Natriuretic Peptide Total Protein Albumin Imaging Radiologist's Impressions: Impressions Chest X-Ray 10/12/24 05:40 IMPRESSION: Right-sided pleural effusion, moderate to large volume. Chronic interstitial lung disease. Airspace disease, right lung base/right middle lung lobe cannot be excluded. Electronically signed by: Zander Kennedy MD 10/12/2024 07:49 AM EDT RP Chest CTA 10/12/24 06:53 IMPRESSION: Pulmonary emboli in the right middle lobe and in both lower lobes with right heart strain. Findings highly suspicious for an infarct in the lateral segment of the right lower lobe. Small to moderate right pleural effusion. Findings were discussed with Dr. Leavitt in the emergency room on 10/12/2024 at 8:15 AM. Electronically signed by: Gume Hussein MD 10/12/2024 08:19 AM EDT RP Assessment and Plan (1) Pulmonary emboli: Qualifiers: Acute cor pulmonale presence: without acute cor pulmonale Chronicity: acute Pulmonary embolism type: unspecified Qualified Code(s): I26.99 - Other pulmonary embolism without acute cor pulmonale Status: Acute (2) Pulmonary infarct: Status: Acute Plan 74-year-old male with right-sided chest pain and found to have pulmonary emboli with right RV strain, hemodynamically stable and no hypoxia. Plan: Continue heparin drip as initiated in the emergency room. She would need her workup. Vascular surgery consultation to see if he is a candidate for embolectomy BPH Flomax Full code Quality Stroke Does the patient have a stroke diagnosis?: No VTE Prior VTE?: No VTE Risk Level:: Medical - moderate - high VTE Device Contraindication: Treatment Not Indicated VTE Drug Contraindication: N/A - Med Ordered
--- NOTE | 2024-10-12 10:09 | PHA.MEDREC ---
Pharmacy Consult ? Medication Reconciliation Pharmacy has completed the medication reconciliation. Spoke to patient at bedside, he only takes Tamsulosin daily, finished the Bactrim yesterday.
--- NOTE | 2024-10-12 11:05 | PM.CNGS ---
History of Present Illness Consult details Consult date: 10/12/24 Reason for consult: other (PE) Narrative: Very pleasant 74-year-old gentleman with a remote history of PE presented to the emergency room today with right-sided chest discomfort. He reports this all began on Thursday after he was out chopping wood. He reports that he felt pretty good while chopping wood and after that started to develop this right-sided pain. It continued to progress. In a regular setting has no difficulty but when he tries to go into a supine position he reports chest discomfort on the right side. He was brought in worked up. CT angiogram demonstrated bilateral subsegmental PEs. At the current time he reports no discomfort. He was satting 97% on room air. Node difficulty whatsoever having a normal conversation. Review of Systems Review of Systems: Yes all other systems are reviewed and are negative Constitutional: Constitutional: Reports no additional constitutional complaints ENT: Reports Normal hearing present Cardiovascular: Cardiovascular: Denies chest pain, Denies chest pain at rest, Denies chest pain with activity and Denies pedal edema Respiratory: Respiratory: Denies cough Gastrointestinal: Gastrointestinal: Denies abdominal pain Musculoskeletal: Musculoskeletal: Denies abnormal gait, Denies muscle cramps and Denies radiating pain into limb Integumentary/Breasts: Skin/Breast: Denies skin ulcer and Denies wounds Neurologic: Reports Normal hearing present and Denies abnormal gait Psychiatric: Psychiatric: Reports no additional psychiatric complaints [facility] Past Medical History Medical History Hearing loss GERD (gastroesophageal reflux disease) BPH (benign prostatic hyperplasia) Gastric outlet obstruction Family History Family History Mother Hypertension Diabetes Father No problems noted. Surgical History Surgical History History of esophagogastroduodenoscopy (EGD) History of facial surgery History of hernia surgery Social History Social History Household Members: Family Housing: House (3-family house) Are you a primary aged or disabled carer to a significant other at home: No Do you presently have visiting nurse or other home services: No Alcohol intake: never Patient Tobacco Use Status: Never used Tobacco Smoked in Last 30 Days: No e-Cigarette/Vaping Use: Never Used Use of substances other than those prescribed or required for medical reasons: No Advance Directives: No Advance Directives Information Provided: Yes service: No Current occupational status: retired Cognitive needs: No Hearing needs: Yes Vision needs: No Meds Allergies Allergy/AdvReac Type Severity Reaction Status Date / Time No Known Allergies Allergy Verified 10/12/24 06:36 Active Medications: Current Medications Acetaminophen (Acetaminophen 325 Mg Tablet) 650 mg PO Q6H PRN PRN Reason: Pain, Mild 1-3,fever,headache Calcium Carbonate (Calcium Carbonate 750 Mg Tab.Chew) 750 mg PO Q4H PRN PRN Reason: Heartburn Heparin Sodium (Porcine) (Heparin Sodium,Porcine 5,000 Unit/Ml Vial) 2,800 unit 40 unit/kg (2800 unit) IVPUSH PROTOCOL BOLUS PRN; Protocol PRN Reason: 40 unit/kg - Heparin Protocol Heparin Sodium (Porcine) (Heparin Sodium,Porcine 5,000 Unit/Ml Vial) 5,600 unit 80 unit/kg (5600 unit) IVPUSH PROTOCOL BOLUS PRN; Protocol PRN Reason: 80 unit/kg - Heparin Protocol Heparin Sodium/Sodium Chloride (Heparin Sodium,Porcine/1/2ns) 25,000 unit in 250 mls @ 0 mls/hr IVCONT .Q0M [facility]; Protocol Last Admin: 10/12/24 09:25 Dose: 14 units/kg/hr, 9.83 mls/hr Magnesium Hydroxide (Milk Of Magnesia 30 Ml Oral.Susp) 30 ml PO DAILY PRN PRN Reason: Constipation Melatonin (Melatonin 3 Mg Tablet) 6 mg PO BEDTIME PRN PRN Reason: Insomnia Morphine Sulfate (Morphine Sulfate 4 Mg/Ml Cartridge) 4 mg IVPUSH Q2H PRN; Protocol PRN Reason: Pain, Severe (Pain Scale 7-10) Ondansetron HCl (Ondansetron Hcl 4 Mg/2 Ml Vial) 4 mg IVPUSH Q8H PRN PRN Reason: Nausea and Vomiting Oxycodone HCl (Oxycodone Hcl Immed Release 5 Mg Tablet) 5 mg PO Q4H PRN PRN Reason: Pain, Moderate(Pain Scale 4-6) Polyethylene Glycol (Polyethylene Glycol 3350 17 Gm Powd.Pack) 17 gm PO DAILY PRN PRN Reason: Constipation Sodium Chloride (0.9 % Sodium Chloride Flush 3 Ml Syringe) 3 ml IVFLUSH QSHIFT YUDY Physical Exam Vital Signs: Vital Signs: Last Vital Signs Temp 98.9 F 10/12/24 10:16 Pulse 72 10/12/24 10:16 Resp 11 L 10/12/24 10:16 BP 93/48 L 10/12/24 10:16 Pulse Ox 97 10/12/24 10:16 O2 Del Method Room Air 10/12/24 10:16 BMI result Body Mass Index 21.0 Const: General: cooperative, healthy appearing and comfortable Orientation/consciousness: oriented to person, oriented to place and oriented to time HEENT: Head: Yes normal to inspection Neck: Neck: Yes normal visual inspection Carotids: no bruits Chest: Chest palpation & inspection: normal inspection of the chest Resp: Effort & Inspection: normal respiratory effort and able to speak in complete sentences Auscultation: clear to auscultation bilaterally, no crackles, no rales, no rhonchi and no wheezes Cardio: Rate: regular rate Rhythm: regular rhythm Heart sounds: S1 normal heart sound present and S2 normal heart sound present Bruits: no carotid bruits Peripheral pulses: Peripheral pulses 2+ throughout GI: Inspection: Yes normal to inspection Skin: Wounds: no wounds Hair: normal Neuro: General: oriented to person, oriented to place and oriented to time Cranial nerves: Yes CN's II-XII intact bilaterally and Yes Normal hearing present Cognition (Neuro): normal cognition Motor exam (neuro): 5/5 motor strength present throughout Extrem: Other: venous exam: No significant superficial varicosities or spider telangiectasias, minimal edema General: No clubbing, No cyanosis and No edema Psych: Appearance: grossly normal Mental Status: mental status grossly normal Speech and movement: Normal speech and movement present Results Labs 10/12/24 08:45 10/12/24 06:45 Labs: Abnormal lab results 10/12/24 10/12/24 Range/Units 06:45 08:45 RBC 4.55 L 4.21 L (4.60-5.80) X10*6/uL Hgb 13.1 L 12.0 L (14.0-18.0) g/dl Hct 38.5 L 36.1 L (42.0-52.0) % PT 13.4 H 13.8 H (10.9-12.4) SEC INR 1.2 H 1.2 H (0.9-1.1) aPTT Heparin Protocol 30.0 L (53-77.9) SEC Random Glucose 124 H (60-115) mg/dL Total Protein 6.4 L (6.5-8.0) g/dL Short CBC 10/12/24 10/12/24 Range/Units 06:45 08:45 WBC 6.8 6.4 (4.8-10.8) X10*3/uL Hgb 13.1 L 12.0 L (14.0-18.0) g/dl Hct 38.5 L 36.1 L (42.0-52.0) % Plt Count 171 163 (160-400) X10*3/uL BMP 10/12/24 06:45 Sodium 139 Potassium 3.9 Chloride 105 Carbon Dioxide 26 BUN 13 Creatinine 1.16 Calcium 8.6 Liver Function 10/12/24 Range/Units 06:45 Total Bilirubin 0.8 (0.0-1.0) mg/dL AST 21 (5-37) U/L ALT 16 (0-40) U/L Alkaline Phosphatase 73 (39-117) U/L Albumin 4.2 (3.5-5.0) g/dL All other labs normal. Imaging Additional studies: CT scan reviewed Assessment and Plan (1) Pulmonary emboli: Qualifiers: Acute cor pulmonale presence: without acute cor pulmonale Chronicity: acute Pulmonary embolism type: unspecified Qualified Code(s): I26.99 - Other pulmonary embolism without acute cor pulmonale Status: Acute Plan In short patient has recurrent PE. This is in the subsegmental branches right more so than left. After discussion and review of the case I think that he would be best served with anticoagulation alone. No need for intervention at the current time. He may require long-term anticoagulation. No vascular intervention required. He can follow up with us on an as-needed basis. Can follow-up with primary team in regards to his anticoagulation. Thank you for allowing us to assist in his care Procedures Date of Service Date of Service: 10/12/24
--- NOTE | 2024-10-12 14:54 | PC.NURSE ---
Pt requesting his home dose of tamsulosin 0.4mg PO. MD aware, awaiting orders. Pt resting comfortably in bed finishing meal tray. Care ongoing.
[2024-10-12 15:46] LABS: PTT Heparin Drip 65.6 SEC (53-77.9)
[2024-10-12] MEDS: oxyCODONE HCl Immed Release 5 MG TABLET PO (17:00)
[2024-10-12 21:25] LABS: PTT Heparin Drip 40.5 SEC (53-77.9)
[2024-10-13] VITALS: BP 110/56; PULSE 87; RESP 16; TEMP 37.1; O2SAT 95
[2024-10-13 04:00] VITALS: BP 112/56; PULSE 75; RESP 16; TEMP 37.2; O2SAT 99
[2024-10-13 04:22] LABS: Hematocrit 36.0 % (42.0-52.0); Hemoglobin 12.5 g/dl (14.0-18.0); Mean Corpuscular HGB Conc 34.7 g/dl (31.0-36.0); Mean Corpuscular Hemoglobin 28.6 pg (27.0-33.0); Mean Corpuscular Volume 82.4 fL (80.0-98.0); NRBC Abs Auto 0.000 X10*3/uL (0.0-0.012); NRBC Pct Auto 0.0 /100WBC (0.0-0.2); Platelet Count 173 X10*3/uL (160-400); Red Blood Count 4.37 X10*6/uL (4.60-5.80); White Blood Count 7.2 X10*3/uL (4.8-10.8)
[2024-10-13 04:27] LABS: INTERNATIONAL NORM RATIO 1.2 (0.9-1.1); Prothrombin Time 14.2 SEC (10.9-12.4)
[2024-10-13 04:30] LABS: PTT Heparin Drip 68.6 SEC (53-77.9)
[2024-10-13 04:35] LABS: Alanine Aminotransferase 11 U/L (0-40); Albumin Level 3.6 g/dL (3.5-5.0); Alkaline Phosphatase 62 U/L (39-117); Anion Gap 12 (12-20); Aspartate Amino Transferase 15 U/L (5-37); Blood Urea Nitrogen 16 mg/dL (9-16); Calcium 8.1 mg/dL (8.4-10.2); Carbon Dioxide 23 mmol/L (22-29); Chloride 105 mmol/L (96-108); Creatinine Clr Calc Pharmacy 64.0; Estimated Glomerular Filt Rate > 60; Potassium 4.4 mmol/L (3.3-5.1); Sodium 136 mmol/L (135-145); Total Protein 5.7 g/dL (6.5-8.0)
[2024-10-13] MEDS: 0.9 % Sodium Chloride Flush 3 ML SYRINGE IVFLUSH ×4 (04:40→20:50)
[2024-10-13 06:56] VITALS: BP 110/55; PULSE 74; RESP 18; TEMP 36.4; O2SAT 93
--- NOTE | 2024-10-13 08:02 | CA_ITS ---
Transthoracic Echocardiogram Patient (Last, First, Middle): Tomás Mendoza, Gender: Male Date of : 1950 Age: 74 Procedure Date: 10/13/2024 Procedure Type: Transthoracic Echocardiogram Location: [facility] [place] Height: 182.88 cm Weight: 69.85 kg BSA: 1.91 m2 Heart Rate: 75 bpm BP: 110 / 55 mmHg Airline Pilot Flight Instructor: CHRISTIANO Referring MD: Wilber Murillo MD Symptoms: pulmonary embolism Study Quality: Adequate ECG Rhythm: Sinus Conclusions: - Normal left ventricular size, thickness, systolic function, and wall motion. The visually estimated ejection fraction is between 55-60%. Diastolic function is normal for age. - Normal right ventricular cavity size and systolic function. Findings Left Ventricle Normal left ventricular size, thickness, systolic function, and wall motion. The visually estimated ejection fraction is between 55-60%. Diastolic function is normal for age. Right Ventricle Normal right ventricular cavity size and systolic function. Atria Both atria are normal in size. Aortic Valve Normal aortic valve structure and function. There is no aortic valve stenosis. There is no aortic valve regurgitation. Mitral Valve Normal mitral valve structure and function. There is no mitral valve regurgitation. There is no mitral valve stenosis. Pulmonic Valve The pulmonic valve is likely normal. Tricuspid Valve Normal tricuspid valve structure. There is no tricuspid valve regurgitation. Tricuspid regurgitation envelope is inadequate for calculation of right ventricular systolic pressure. Normal right atrial pressure. Great Vessels All visible segments of the aorta are normal in size. The visualized portions of the pulmonary artery and branches are normal. Venous The inferior vena cava is normal in size and collapses greater than 50% with inspiration. Pericardium/Pleural There is no evidence of pericardial effusion. Prior Study Comparison No prior study available for comparison. Measurements 2D Linear Measurements IVSd: 0.91 0.6-0.9/0.6-1.0 cm LVIDd: 4.37 3.9-5.3/4.2-5.9 cm LVIDd Index: 2.29 2.4-3.2/2.2-3.1 cm/m2 LVPWd: 0.82 0.7-1.1 cm LA Diam: 2.60 2.7-3.8/3.0-4.0 cm LAIDs Index: 1.36 1.5-2.3 cm/m2 LV Mass: 149.62 67-162/88-224 g LV Mass Index: 78.33 43-95/49-115 g/m2 LVOT Diam: 2.10 3.0+(-)1.3 cm 2D Systolic Function EF 4C: 59.50 >55% EF 2C: 57.10 >55% EF BiP: 57.40 >55% Mitral Valve MV Pk E: 0.71 MV PK A: 0.44 MV Decel Time: 244.00 E/A: 1.60 E'Lateral: 8.49 E'Medial: 5.98 E/E' Med: 11.90 E/E' Lat: 8.40 PHT: 71.00 MVA PHT: 3.10 Decel [place]: 2.92 Aortic Valve AoV Pk Vance: 1.31 AoV Mn Vance: 0.83 AoV VTI: 0.21 AoV Pk Grad: 7.00 Aov Mn Grad: 3.00 CHAS Cont.VTI: 3.22 LVOT LVOT Pk Vance: 1.21 LVOT Mn Vance: 0.73 LVOT VTI: 0.19 LVOT Pk Grad: 6.00 LVOT Mn Grad: 3.00 LVOT Diam: 2.10 LVOT Area: 3.46 Diastolic Function MV Pk E: 0.71 MV Pk A: 0.44 E/A: 1.60 E'Medial: 5.98 E/E' Med: 11.90 E' Laterial: 8.49 E/E' Lat: 8.40 Right Ventricle TAPSE (mm): 29.50 TVS' Vance: 12.80 Tricuspid Valve TR Pk Vance: 2.06 TR Pk Grad: 17.00 Great Vessels Aorta Sinus of Valsalva: 3.40 2.0-3.5 cm Ao Asc: 3.40 2.1-3.4 cm Pulmonary Valve PV Pk Vance: 0.92 Peak PV Grad: 3.00 Updated in Other Vendor System with Status of Final Reymundo Ceja MD electronically signed on 10/13/2024 9:47:01 PM with status of Final
--- NOTE | 2024-10-13 09:19 | MHC.CM.PN ---
IMM 10/13/24, Pt. lives with his 2 sons, His PCP is Mike Phelps. HCP discussed, he declined to complete form. Pt. does not use home health services or DME. He can arrange a ride home at [place]. DCP: home, self care. CM to follow for DC needs.
[2024-10-13 10:30] LABS: PTT Heparin Drip 35.4 SEC (53-77.9)
--- NOTE | 2024-10-13 10:49 | PC.NURSE ---
pt reports dull pain, does not want to receive any pain meds.
[2024-10-13 11:45] VITALS: BP 151/64; PULSE 79; RESP 16; TEMP 36.3; O2SAT 96
[2024-10-13 15:12] VITALS: BP 118/57; PULSE 85; RESP 19; TEMP 36.4; O2SAT 95
--- NOTE | 2024-10-13 15:35 | P.PNIM_ITS ---
Subjective Subjective Date of Service: 10/13/24 Interval History: Seen in f/u for pulmonary embolism. There is persitent right sided chest pain Physical Exam 2 Vital Signs: Vital Signs: Last Vital Signs Temp 97.6 F 10/13/24 15:12 Pulse 85 10/13/24 15:12 Resp 19 10/13/24 15:12 BP 118/57 L 10/13/24 15:12 Pulse Ox 95 10/13/24 15:12 O2 Del Method Room Air 10/13/24 15:12 BMI result Body Mass Index 21.0 General: AO X 3, no acute distress Resp: CTA bilateral CVS: S1,S2,RRR GI: +BS, NT, no distention Skin: No rash Neuro: motor grossly intact Psych: appropriate affect Const: Other: General: AO X 3, no acute distress Resp: CTA bilateral CVS: S1,S2,RRR GI: +BS, NT, no distention Skin: No rash ext: left leg bigger than the right, no tenderness Neuro: motor grossly intact Psych: appropriate affect Objective Data Active Medications Acetaminophen (Acetaminophen 325 Mg Tablet) 650 mg PO Q6H PRN PRN Reason: Pain, Mild 1-3,fever,headache Apixaban (Apixaban 5 Mg Tablet) 10 mg PO BID YUDY Stop: 10/19/24 21:01 Last Admin: 10/13/24 09:04 Dose: 10 mg Documented By: ILA Calcium Carbonate (Calcium Carbonate 750 Mg Tab.Chew) 750 mg PO Q4H PRN PRN Reason: Heartburn Magnesium Hydroxide (Milk Of Magnesia 30 Ml Oral.Susp) 30 ml PO DAILY PRN PRN Reason: Constipation Melatonin (Melatonin 3 Mg Tablet) 6 mg PO BEDTIME PRN PRN Reason: Insomnia Morphine Sulfate (Morphine Sulfate 4 Mg/Ml Cartridge) 4 mg IVPUSH Q2H PRN; Protocol PRN Reason: Pain, Severe (Pain Scale 7-10) Ondansetron HCl (Ondansetron Hcl 4 Mg/2 Ml Vial) 4 mg IVPUSH Q8H PRN PRN Reason: Nausea and Vomiting Oxycodone HCl (Oxycodone Hcl Immed Release 5 Mg Tablet) 5 mg PO Q4H PRN PRN Reason: Pain, Moderate(Pain Scale 4-6) Last Admin: 10/12/24 17:00 Dose: 5 mg Documented By: NICHOL Polyethylene Glycol (Polyethylene Glycol 3350 17 Gm Powd.Pack) 17 gm PO DAILY PRN PRN Reason: Constipation Sodium Chloride (0.9 % Sodium Chloride Flush 3 Ml Syringe) 3 ml IVFLUSH QSHIFT [facility] Last Admin: 10/13/24 09:05 Dose: 3 ml Documented By: ILA Tamsulosin HCl (Tamsulosin Hcl 0.4 Mg Capsule) 0.4 mg PO DAILY [facility] Last Admin: 10/13/24 10:50 Dose: Not Given Documented By: ILA Non-Admin Reason: Patient Refused Labs 10/13/24 04:18 10/13/24 04:18 Labs: Laboratory Results - last 24 hr 10/12/24 10/12/24 10/13/24 15:30 20:31 04:18 MCV 82.4 MCH 28.6 MCHC 34.7 RDW 13.2 Plt Count 173 MPV 9.9 Absolute Nucleated RBC 0.000 Nucleated RBC % (auto) 0.0 PT 14.2 H INR 1.2 H aPTT Heparin Protocol 65.6 D 40.5 L D 68.6 D Anion Gap 12 Estim Creat Clear Calc 64.0 Estimated GFR > 60 Random Glucose 108 Calcium 8.1 L Total Bilirubin 0.5 AST 15 ALT 11 Alkaline Phosphatase 62 Total Protein 5.7 L Albumin 3.6 10/13/24 10:14 MCV MCH MCHC RDW Plt Count MPV Absolute Nucleated RBC Nucleated RBC % (auto) PT INR aPTT Heparin Protocol 35.4 L D Anion Gap Estim Creat Clear Calc Estimated GFR Random Glucose Calcium Total Bilirubin AST ALT Alkaline Phosphatase Total Protein Albumin Microbiology Microbiology Results: Microbiology 10/12/24 07:48 Blood Culture - Preliminary Blood - Venous No growth after 24 hours. 10/12/24 07:48 Blood Culture - Preliminary Blood - Venous No growth after 24 hours. Assessment and Plan (1) Pulmonary infarct: Status: Acute (2) Pulmonary emboli: Status: Acute Plan 74-year-old male with right-sided chest pain and found to have pulmonary emboli with right RV strain, hemodynamically stable and no hypoxia. Plan: Continue heparin drip as initiated in the emergency room. He was seen by vascular surgery, no indication for embolectomy. Obtain bilateral US of the legs. Echo pending. Will benefit for secondary work up on outpatient basis. Transitioned to oral eliauis. Pulmonary consult for mod pleural effusion. Quality Stroke Does the patient have a stroke diagnosis?: No VTE Prior VTE?: No VTE Risk Level:: Medical - moderate - high VTE Device Contraindication: Treatment Not Indicated VTE Drug Contraindication: N/A - Med Ordered
[2024-10-13 19:20] VITALS: BP 100/52; PULSE 84; RESP 18; TEMP 37.1; O2SAT 93
[2024-10-14] VITALS: BP 100/56; PULSE 83; RESP 20; TEMP 36.7; O2SAT 92
[2024-10-14 03:28] VITALS: BP 111/53; PULSE 76; RESP 16; TEMP 36.8; O2SAT 93
[2024-10-14 07:21] VITALS: BP 102/45; PULSE 77; RESP 20; TEMP 36.5; O2SAT 95
[2024-10-14] MEDS: 0.9 % Sodium Chloride Flush 3 ML SYRINGE IVFLUSH (09:03)
--- NOTE | 2024-10-14 09:20 | PM.DS ---
DS: Providers Provider Date of Service: 10/14/24 Date of admission: 10/12/24 08:56 Date of discharge: 10/14/24 Primary care physician: SIMBA Garcia Consults: 10/12/24 09:01 Consult to Vascular Surgery Routine Consulting Provider: [facility] [place] [facility] Services Reason for consultation: pulmonary embolism with Right ventricular DS: Diagnosis Discharge Diagnosis (1) Pulmonary emboli: Status: Acute (2) Pulmonary infarct: Status: Acute DS: Summary Hospital Course Hospital Course: Admission hpi Chief Complaint: Right sided chest pain 74-year-old male with a history of BPH, GERD, hearing loss in the gastric outlook obstruction. He presents with a right-sided chest pain onset about 3 days earlier. He reports no trauma no associated shortness of breath or bill chest pain. Workup in the emergency room with a CT a of the chest has revealed pulmonary emboli bilaterally with a right ventricular strain. He is not hypoxic and has no other respiratory symptoms failure he is initiated on heparin drip. He reported no obvious risk factors he has acquired active and has not taken any long-term as of late. Of note he has been on Bactrim for treatment of the infection related to the prostate per his report. Hospital course: Patient presented with a right-sided chest pain that had been ongoing for several days. Checks x-ray show a moderate right-sided pleural effusion. Subsequently his CTA of the chest Pulmonary emboli in the right middle lobe and in both lower lobes with right heart strain. Findings highly suspicious for an infarct in the lateral segment of the right lower lobe. Small to moderate right pleural effusion. He has history of clots 15 years ago and multiple family members have had blood clots. Patient was initiated on IV heparin from the emergency department. Vascular surgery saw him and recommends no embolectomy but rather to anticoagulation. An echocardiogram show - Normal left ventricular size, thickness, systolic function, andwall motion. The visually estimated ejection fraction is between 55-60%. Diastolic function is normal for age. - Normal right ventricular cavity size and systolic function. He is hemodynamically stable, no hypoxia. Will arrange for outpatient follow up with pulmonology and Hematology. He has been transitioned to oral eliquis, starting with a week loading dose of 10 mg bid, followed by 5 mg bid Time Attestation Discharge Coordination Time (in mins): 40 Quality: Safe Use of Opioids Does Pt have an Active Cancer Diagnosis on the Problem List?: No Quality: Stroke Does the patient have a stroke diagnosis?: No Physical Exam Exam: Exam: Selected Entries 10/14/24 07:21 Temperature 97.7 F Pulse Rate 77 Respiratory Rate 20 Blood Pressure 102/45 L Pulse Oximetry 95 Oxygen Delivery Me thod Room Air DS: Data Data Completed and Pending Completed studies during hospitalization [Text1]: Procedures Excision of Duodenum, Via Natural or Artificial Opening Endoscopic, Diagnostic (04/15/24) Excision of Stomach, Pylorus, Via Natural or Artificial Opening Endoscopic, Diagnostic (04/15/24) Labs on day of discharge: Laboratory Results - last 24 hr 10/12/24 10/12/24 10/13/24 15:30 20:31 04:18 WBC 7.2 RBC 4.37 L Hgb 12.5 L Hct 36.0 L MCV 82.4 MCH 28.6 MCHC 34.7 RDW 13.2 Plt Count 173 MPV 9.9 Absolute Nucleated RBC 0.000 Nucleated RBC % (auto) 0.0 PT 14.2 H INR 1.2 H aPTT Heparin Protocol 65.6 D 40.5 L D 68.6 D Sodium 136 Potassium 4.4 Chloride 105 Carbon Dioxide 23 Anion Gap 12 BUN 16 Creatinine 1.02 Estim Creat Clear Calc 64.0 Estimated GFR > 60 Random Glucose 108 Calcium 8.1 L Total Bilirubin 0.5 AST 15 ALT 11 Alkaline Phosphatase 62 Total Protein 5.7 L Albumin 3.6 10/13/24 10:14 WBC RBC Hgb Hct MCV MCH MCHC RDW Plt Count MPV Absolute Nucleated RBC Nucleated RBC % (auto) PT INR aPTT Heparin Protocol 35.4 L D Sodium Potassium Chloride Carbon Dioxide Anion Gap BUN Creatinine Estim Creat Clear Calc Estimated GFR Random Glucose Calcium Total Bilirubin AST ALT Alkaline Phosphatase Total Protein Albumin Preliminary micro results at discharge 10/12/24 07:48 Blood Culture - Preliminary Blood - Venous No growth after 24 hours. 10/12/24 07:48 Blood Culture - Preliminary Blood - Venous No growth after 24 hours. Discharge Plan Discharge Anticipated Discharge Date/Time: 10/14/24 09:21 Patient Disposition: Home, Self-Care Discharge Diagnosis: Pulmonary embolism, pulmonary infarct, Referrals: Marty Garcia MD [Physician, Pulmonology] - 1 Week Referral Note: PE with effusion, pulmonary infarct Problems: Pulmonary emboli; Pulmonary infarct Heaven Do MD [Physician, Hematology & Oncology] - 1 Week Referral Note: Pulmonary embolism ? need work up Mike Phelps FNP-C [Primary Care Provider, Internal Medicine] - 1 Week Discharge Medications: New Eliquis DVT-PE Treat 30D Start 5 mg (74 tabs) tablets,dose pack See Rx Instructions .ROUTE .COMPLEX Qty: 190 0RF Rx Instructions: take 2 twice daily until October 19, starting October 20 take 1 tab twice daily Continued tamsulosin 0.4 mg capsule 0.4 mg PO DAILY 90 Days Qty: 90 1RF Diet: Advance to usual diet Activity on Discharge: As tolerated Stand Alone Forms: Patient Portal Discharge page Print Language: Faroese Care Plan Goals: recovery from PE Health Concerns: pulmonary embolism Pleural effusion pulmonary infarct Plan of Treatment: take eliquis as directed: 2 tabs twice daily untily October 19, and starting October 20 take 1 tab twice daily follow up with Hematology follow up with pulmonology if you experience increasing chest pain and shortness of breath, call 911 follow up with your doctor in a week Assessment: see above
[2024-10-14 09:50] LABS: Hematocrit 37.8 % (42.0-52.0); Hemoglobin 12.6 g/dl (14.0-18.0); Mean Corpuscular HGB Conc 33.3 g/dl (31.0-36.0); Mean Corpuscular Hemoglobin 28.3 pg (27.0-33.0); Mean Corpuscular Volume 84.9 fL (80.0-98.0); NRBC Abs Auto 0.000 X10*3/uL (0.0-0.012); NRBC Pct Auto 0.0 /100WBC (0.0-0.2); Platelet Count 183 X10*3/uL (160-400); Red Blood Count 4.45 X10*6/uL (4.60-5.80); White Blood Count 4.9 X10*3/uL (4.8-10.8)
[2024-10-14 11:25] VITALS: BP 117/65; PULSE 78; RESP 20; TEMP 36.5; O2SAT 97
--- NOTE | 2024-10-14 13:14 | MHC.CM.PN ---
Pt is medically cleared for discharge home self-care, pt will arrange his own transport home today.
--- NOTE | 2024-10-14 15:19 | PM.CNPUL ---
History of Present Illness History of Present Illness Consult date: 10/13/24 Chief complaint: Pulmonary embolism Narrative: Late note for patient seen, evaluated, and discussed with hospitalist Dr. Murillo on 10/13/2024. 74-year-old gentleman with underlying BPH, gout, prior history of DVT approximately 15 years prior admitted on 10/12/2024 with 3 day history of acute onset of right-sided chest pain worsening with deep inspirations. On ER evaluation patient with right-sided pulmonary emboli with pulmonary infarct in small effusion. Patient started on anticoagulation admitted to hospitalist service. Patient with slow recovery of his respiratory status essentially to baseline and improvement in his right-sided chest pain. He does have family history of blood clots in his brother, sister, and mother. Review of Systems Constitutional: Constitutional: Denies daytime sleepiness, Denies excessive sweating, Denies fatigue, Denies fever(s), Denies lethargy, Denies malaise, Denies night sweats, Denies snoring and Denies weight loss Eyes: Eyes: Denies blurry vision and Denies itchy eyes ENT: Denies nasal congestion, Denies post nasal drip, Denies sinus pain, Denies sinus pressure and Denies other ( Thrush) Cardiovascular: Cardiovascular: Reports chest pain (Right-sided with deep inspiration), Denies pedal edema, Denies dyspnea, Denies orthopnea and Denies paroxysmal nocturnal dyspnea Respiratory: Respiratory: Denies cough, Denies hemoptysis, Denies excessive phlegm production, Denies dyspnea, Denies snoring and Denies wheezing Gastrointestinal: Gastrointestinal: Denies abdominal pain and Denies heartburn Musculoskeletal: Musculoskeletal: Denies myalgias, Denies arthralgias and Denies joint swelling Integumentary/Breasts: Skin/Breast: Denies rash Neurologic: Denies memory loss and Denies seizure-like activity Psychiatric: Psychiatric: Denies abnormal sleep pattern, Denies anxiety and Denies memory loss Endocrine: Endocrine: Denies excessive sweating, Denies fatigue and Denies heat intolerance Hematologic/Lymphatic: Hematologic/Lymphatic: Denies easy bruising Allergic/Immunologic: Allergic/Immunologic: Denies itchy eyes, Denies seasonal rhinorrhea and Denies wheezing PMFSH Past Medical History Medical History Hearing loss GERD (gastroesophageal reflux disease) BPH (benign prostatic hyperplasia) Gastric outlet obstruction Family History Family History Mother Hypertension Diabetes Father No problems noted. Surgical History Surgical History History of esophagogastroduodenoscopy (EGD) History of facial surgery History of hernia surgery Social History Social History Household Members: Family and Children Housing: Apartment Are you a primary veterinarian laboratory animal care to a significant other at home: No Do you presently have visiting nurse or other home services: No Alcohol intake: never Patient Tobacco Use Status: Never used Tobacco e-Cigarette/Vaping Use: Never Used service: No Current occupational status: retired Cognitive needs: No Hearing needs: Yes Vision needs: No Meds Allergies Allergy/AdvReac Type Severity Reaction Status Date / Time No Known Allergies Allergy Verified 10/12/24 06:36 Physical Exam Vital Signs: Vital Signs: Last Vital Signs Temp 97.7 F 10/14/24 11:25 Pulse 78 10/14/24 11:25 Resp 20 10/14/24 11:25 BP 117/65 10/14/24 11:25 Pulse Ox 97 10/14/24 11:25 O2 Del Method Room Air 10/14/24 11:25 BMI result Body Mass Index 21.0 Const: General: no acute distress and alert Nutritional Appearance: not obese Orientation/consciousness: Other orientation findings ( oriented) HEENT: Head: Yes atraumatic Eyes: General: appearance normal, both eyes and all related structures Sclerae: sclerae normal EOM: EOMs intact bilaterally Neck: Neck: Yes supple Lymphatic: no lymphadenopathy noted Resp: Effort & Inspection: normal respiratory effort and no use of accessory muscles Auscultation: clear to auscultation bilaterally Cardio: Rate: regular rate Rhythm: regular rhythm Heart sounds: no gallops, no murmurs and no rubs Skin: General skin exam: other ( warm) Extrem: General: No clubbing, No cyanosis and No edema Results Laboratory Findings 10/14/24 09:44 10/13/24 04:18 ABG, PT/INR, D-dimer: PT/INR, D-dimer PT 14.2 SEC (10.9-12.4) H 10/13/24 04:18 INR 1.2 (0.9-1.1) H 10/13/24 04:18 Abnormal lab findings: Abnormal Labs 10/12/24 10/12/24 10/12/24 06:45 08:45 20:31 RBC 4.55 L 4.21 L Hgb 13.1 L 12.0 L Hct 38.5 L 36.1 L PT 13.4 H 13.8 H INR 1.2 H 1.2 H aPTT Heparin Protocol 30.0 L 40.5 L D Random Glucose 124 H Calcium Total Protein 6.4 L 10/13/24 10/13/24 10/14/24 04:18 10:14 09:44 RBC 4.37 L 4.45 L Hgb 12.5 L 12.6 L Hct 36.0 L 37.8 L PT 14.2 H INR 1.2 H aPTT Heparin Protocol 35.4 L D Random Glucose Calcium 8.1 L Total Protein 5.7 L Microbiology: Microbiology 10/12/24 07:48 Blood - Venous Blood Culture - Preliminary No growth after 48 hours. 10/12/24 07:48 Blood - Venous Blood Culture - Preliminary No growth after 48 hours. 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 Recommendations: Agree with full-dose anticoagulation. Hemoglobin is stable, no concern for hemothorax. Procedures Date of Service Date of Service: 10/14/24
== END 2024-10-14 13:29 | disposition home or self-care (01) | DRG 175 ==
LOC: HO.ED 07:23 → HO.EDOVER 09:26 → HO.IMC 09:43 → HO.EDOVER 09:49 → HO.IMC 15:44
PROVIDERS: Student in an Organized Health Care Education/Training Program; Admitting Provider Internal Medicine; Emergency Provider Emergency Medicine; Visit Provider Internal Medicine
DX: I26.09 Other pulmonary embolism with acute cor pulmonale (principal); N40.0 Benign prostatic hyperplasia without lower urinary tract symptoms; Z86.711 Personal history of pulmonary embolism; Z79.899 Other long term (current) drug therapy
CPT/HCPCS: 36415; 71045; 71275; 80053; 83605; 83735; 83880; 84484; 85027; 85610; 85730; 87040; 93005; 93306; 93970; 99285; J1644; Q9957; Q9967

== ENCOUNTER → 2024-10-12 06:36 | Outpatient (BNV) | payer MEDICARE, SELFPAY | PROVIDERS: Admitting Provider Internal Medicine; Emergency Provider Emergency Medicine; Visit Provider Internal Medicine Cardiovascular Disease | DX: R07.89 Other chest pain (principal) | CPT/HCPCS: 93010 ==

== ENCOUNTER 2024-10-12 08:56 | Outpatient (BNV) | payer MEDICARE, SELFPAY | END 2024-10-13 08:02 | PROVIDERS: Admitting Provider Internal Medicine; Emergency Provider Emergency Medicine; Visit Provider Internal Medicine Cardiovascular Disease | DX: I26.99 Other pulmonary embolism without acute cor pulmonale (principal) | CPT/HCPCS: 93306 ==

== ENCOUNTER 2024-10-12 08:56 | Outpatient (BNV) | payer MEDICARE, SELFPAY | END 2024-10-13 14:48 | PROVIDERS: Admitting Provider Internal Medicine; Emergency Provider Emergency Medicine; Visit Provider Radiology Diagnostic Radiology | DX: I82.412 Acute embolism and thrombosis of left femoral vein (principal) | CPT/HCPCS: 93970 ==

== ENCOUNTER → 2024-10-12 08:56 | Outpatient (BNV) | payer MEDICARE, SELFPAY | PROVIDERS: Admitting Provider Internal Medicine; Emergency Provider Emergency Medicine; Visit Provider Internal Medicine | DX: I26.99 Other pulmonary embolism without acute cor pulmonale (principal) | CPT/HCPCS: 99223; 99232 ==

== ENCOUNTER → 2024-10-12 08:56 | Outpatient (BNV) | payer MEDICARE, SELFPAY | PROVIDERS: Admitting Provider Internal Medicine; Emergency Provider Emergency Medicine; Visit Provider Internal Medicine Pulmonary Disease | DX: I26.99 Other pulmonary embolism without acute cor pulmonale (principal) | CPT/HCPCS: 99222 ==

== ENCOUNTER → 2024-10-12 08:56 | Outpatient (BNV) | payer MEDICARE, SELFPAY | PROVIDERS: Admitting Provider Internal Medicine; Emergency Provider Emergency Medicine; Visit Provider Surgery Vascular Surgery | DX: I26.99 Other pulmonary embolism without acute cor pulmonale (principal) | CPT/HCPCS: 99222 ==

== ENCOUNTER 2024-10-27 14:08 | Outpatient (AMB) | payer MEDICARE, SELFPAY ==
--- OUTSIDE RECORDS SUMMARY | 2024-10-27 14:15 | XMS_ITS | Patient Health Record ---
Author Organization [facility] Address [address] [place] [address] Care Team Providers Care Master Automotive Technician Name Role Phone Mike Phelps N.P. Primary Care Provider Hai Hernandez Jr Unavailable Allergies No Known Allergies Results Component Value Reference Range Notes Pathology Reviewed date:04/21/2024 07:50:38 AM Interpretation: Performing Lab:[facility], [address] [place] [phone] Notes/Report: Pathology Reviewed date:07/01/2024 01:48:46 PM Interpretation: Performing Lab:[facility], [address] [place] [phone] Notes/Report: Reason For Referral No Information Medications [...] duodenal ulcer without hemorrhage AND without perforation (91546154) Chronic duodenal ulcer without hemorrhage or perforation (K26.7) Active confirmed Problem Adult hypertrophic pyloric stenosis (834882138) Adult hypertrophic pyloric stenosis (K31.1) Active confirmed Problem Erosive esophagitis (51929855) Erosive esophagitis (K22.10) Active confirmed Problem 38823998 Duodenal ulcer (K26.9) Active confirmed Problem 524923214 H. pylori infection (A04.8) Active confirmed Problem Colon cancer screening declined (39202411560083) Colon cancer screening declined (Z53.20) Active confirmed Problem 445061039 Gastric outlet obstruction (K31.1) Active confirmed Vital Signs Blood pressure diastolic 77 mm Hg 09/22/2024 Height 72 in 09/22/2024 Blood pressure systolic 111 mm Hg 09/22/2024 Weight 151 lbs 09/22/2024 BMI 20.48 kg/m2 09/22/2024 Encounters Encounter Location Date Provider Diagnosis [facility] Outpatient [address] [place] [id number] 06/28/2024 Hai Hudson Jr Acute duodenal ulcer without hemorrhage or perforation K26.3 and Erosive esophagitis K22.10 [facility] [address] [address] 09/22/2024 Hai Hudson Jr Duodenal ulcer K26.9 ; Erosive esophagitis K22.10 ; H. pylori infection A04.8 and Colon cancer screening declined Z53.20 [facility] [address] [place] [phone] 04/20/2024 Hai Hudson Jr Duodenal ulcer K26.9 ; Gastric outlet obstruction K31.1 and H. pylori infection A04.8 [facility] [address] [address] 07/01/2024 Hai Hudson Jr Assessments Encounter Date [...] End Date Aet[employer] (No Referral) [address] [place], [place] [phone] [id number] RAJIV KO Self - patient is the insured 4 [facility] [address] [place] [address] [phone] [id number] RAJIV KO Self - patient is the insured Medical (General) History Medical History History ICD Code Duodenal ulcer with gastric outlet obstruction 04/16, follow-up endoscopy 07/15, completely healed ulcer, biopsies showed no H. pylori or Cano's esophagus H. pylori infection resolved BPH with elevated PSA Low vitamin D Surgical History Surgery Date(Month/Year) hernia repair
[2024-10-27 14:21] VITALS: BP 98/60; PULSE 69; RESP 18; O2SAT 95; BMI 20.9
--- NOTE | 2024-10-27 14:21 | A.OFFPC_ITS ---
Vital Signs 10/27/24 14:21 Height 6 ft Weight 154 lb BMI 20.9 BP 98/60 Blood Pressure Location Lt brachial Position Sitting Respiration 18 Pulse 69 Pulse Source Pulse Oximeter Temp Source Temporal Artery Scan Pulse Oximetry (%) 95 Oxygen Delivery Method Room Air Intake Visit Reasons: [facility] 10/14 blood clot in lung Airport Ramp Attendant Required: No Accompanied by: Self / Same As Patient Allergies No Known Allergies Allergy (Verified 10/27/24 15:03) Medication List - Last Reconciled 10/27/24 by SIMBA Garcia apixaban (Eliquis DVT-PE Treat 30D Start) take 2 twice daily until October 19, starting October 20 take 1 tab twice daily tamsulosin 0.4 mg PO DAILY 90 days Tobacco use date assessed: 10/27/24 Fall risk assessment: No Falls in past year Last assessed Fall Risk: 10/27/24 Dental Screening Dental Screen Date: 10/27/24 Did you have a dental visit in the last 12 months?: No Did you have a dental problem in the last 6 months where you did not have access to dental care?: No Was dental information given to patient?: No HPI [facility] 10/14 blood clot in lung HPI Details The patient is presenting for post hospital admission for Bilateral PE with right ventricular strain, shown on CTA. The patient was treated in the hospital on heparin drip. Chest x-ray showed moderate right-sided pleural effusion. Patient has a history of blood clots 15 years ago and multiple family members have blood clots. Vascular saw patient and recommend no embolectomy but rather anticoagulation. Echo showed normal left ventricular size, thickness, systolic function and wall motion. EF 55-60%. The patient was hemodynamically stable. He was transitioned to oral Eliquis 5 m g b.i.d. with plans to follow up outpatient with pulmonology and Hematology. Patient has connected with pulmonology already, with plans to call to make an appointment. He has not been connected with Hematology as yet. Reports that his sister called the hematology office and was told that he needs a referral. Will send in a referral urgently. He is feeling much better. Denies shortness of breath, chest pain, heart palpitation or dizziness. The patient needs referral placed to Dr. Issa, stated that he called and they said they do not have an appt for him [facility] [place] Medical History Hearing loss GERD (gastroesophageal reflux disease) BPH (benign prostatic hyperplasia) Gastric outlet obstruction Surgical History History of esophagogastroduodenoscopy (EGD) History of facial surgery History of hernia surgery Family History Mother Hypertension Diabetes Father No problems noted. Social History Household Members: Family and Children Housing: Apartment Are you a primary senior care specialist to a significant other at home: No Do you presently have visiting nurse or other home services: No Alcohol intake: never Patient Tobacco Use Status: Never used Tobacco e-Cigarette/Vaping Use: Never Used service: No Current occupational status: retired Cognitive needs: No Hearing needs: Yes Vision needs: No Questionnaire PHQ-9 Over the last 2 weeks, how often have you been bothered by any of the following problems? 1. Little interest or pleasure in doing things: not at all 2. Feeling down, depressed, or hopeless: not at all 3. Trouble falling or staying asleep, or sleeping too much: not at all 4. Feeling tired or having little energy: not at all 5. Poor appetite or overeating: not at all 6. Feeling bad about yourself - or that you are a failure or have let yourself or your family down: not at all 7. Trouble concentrating on things, such as reading the newspaper or watching television: not at all 8. Moving or speaking so slowly that other people could have noticed. Or the opposite - being so fidgety or restless that you have been moving around a lot more than usual: not at all 9. Thoughts that you would be better off or of hurting yourself in some way: not at all Total score: 0 Depression Screening Interpretation: Negative Depression Screening Done: Yes Source: Developed by Drs. Gume Wellington, Harriet Whatley, Juanpablo Carvajal and colleagues, with an educational lauren from [employer]. Thrive Questionnaire Date Thrive assessed: 10/27/24 I am a: Patient What is your living situation today?: I have a steady place to live Within the past 12 months, did the food you bought not last and you didn't have the money to get more?: I choose not to answer this question Within the past 12 months, did you worry whether your food would run out before you got money to buy more?: I choose not to answer this question Do you have trouble paying for medicines?: I choose not to answer this question Do you have trouble getting transportation to medical appointments?: I choose not to answer this question Do you have trouble paying your heating and electricity bill?: I choose not to answer this question Do you have trouble taking care of your child, family member or friend?: I choose not to answer this question Do you have trouble with day-to-day activities such as bathing, preparing meals, shopping, managing finances, etc.?: I choose not to answer this question Are you currently unemployed and looking for a job?: I choose not to answer this question Are you interested in more education?: I choose not to answer this question Please select the resources that you would like help with: None Currently or been in a relationship where the following occur: I choose not to answer THRIVE Score: 0 AUDIT C Alcohol Use Questionnaire (AUDIT-C) 1. How often do you have a drink containing alcohol?: Never 3. How often do you have six or more drinks on one occasion?: Never Total Score: 0 DOMINGA-7 AMB Questionnaire DOMINGA-7 Date DOMINGA - 7 assessed: 10/27/24 Feeling nervous, anxious, or on edge: 0 = Not at all Not being able to stop or control worryin = Not at all Worrying too much about different things: 0 = Not at all Trouble relaxin = Not at all Being so restless that it is hard to sit still: 0 = Not at all Becoming easily annoyed or irritable: 0 = Not at all Feeling afraid as if something awful might happen: 0 = Not at all Total DOMINGA-7 score (0-4 normal; 5-9 mild; 10-14 moderate; 15-21 severe): 0 Source: Developed by Drs. Gume Wellington, Harriet Whatley, Juanpablo Carvajal and colleagues, with an educational lauren from [employer] Review of Systems Const Denies body aches, Denies chills, Denies fever(s), Denies headache(s) and Denies poor appetite Eyes Reports no additional complaints ENT Denies dysphagia, Denies dizziness, Denies headache(s) and Denies odynophagia Card Denies chest pain, Denies syncope, Denies edema, Denies irregular heart rhythm, Denies lightheadedness and Denies dyspnea Resp Denies cough and Denies dyspnea GI Denies abdominal pain, Denies constipation, Denies dysphagia, Denies diarrhea, Denies nausea, Denies odynophagia and Denies vomiting Reports no additional complaints Musc Reports no additional complaints and Denies abnormal gait Skin/Breast Reports system reviewed and no additional complaints, except as documented Neuro Denies abnormal gait, Denies dizziness, Denies syncope and Denies headache(s) Psych Reports no additional complaints Physical exam (Primary Care) Vital Signs: Last Vital Signs Pulse 69 10/27/24 14:21 Resp 18 10/27/24 14:21 BP 98/60 10/27/24 14:21 Pulse Ox 95 10/27/24 14:21 Oxygen Delivery Method Room Air 10/27/24 14:21 BMI result Body Mass Index 20.9 Tobacco/Smoking Status: Tobacco use Status Tobacco use date assessed 10/27/24 10/27/24 14:23 Patient Tobacco Use Status Never used Tobacco 10/27/24 14:23 e-Cigarette/Vaping Use Never Used 10/27/24 14:23 PHQ-9: PHQ-9 Score PHQ-9: Total score 0 10/27/24 15:06 Depression Screening Interpretation: Negative Thrive Assessment: Date of Thrive Assessment Date Thrive assessed 10/27/24 10/27/24 14:23 Currently or been in a relationship where the following occur: I choose not to answer Const General: cooperative, healthy appearing, comfortable and no acute distress Orientation/consciousness: patient oriented x3 HENMT Head: Yes normocephalic Ears: hearing grossly normal bilaterally General nose exam: Normal external nose present Eyes General: appearance normal, both eyes and all related structures Conjunctivae: conjunctivae normal Neck Neck: Yes full ROM and Yes no lymphadenopathy Resp Effort & Inspection: normal respiratory effort Auscultation: clear to auscultation bilaterally, no crackles, no rales, no rhonchi and no wheezes Cardio Rate: regular rate Rhythm: regular rhythm Skin General skin exam: no rashes or lesions noted Neuro General: patient oriented x3 Gait exam (Neuro): Normal gait present Extrem General: Yes normal to inspection, Yes full ROM and No edema Psych Affect: normal affect Attitude: cooperative Insight: Good insight present (Psych) Judgement: Good judgement present (Psych) Coding Level of Care Code Est Pt Level 3 (50198) Diagnoses Pulmonary emboli I26.99 Acute cor pulmonale presence: without acute cor pulmonale Chronicity: acute Pulmonary embolism type: unspecified Pleural effusion J90 Time Spent (min) 35 Assessment & Plan Assessment & Plan (1) Pulmonary emboli: Code(s): I26.99 - Other pulmonary embolism without acute cor pulmonale Category: Medical Qualifiers: Acute cor pulmonale presence: without acute cor pulmonale Chronicity: acute Pulmonary embolism type: unspecified Qualified Code(s): I26.99 - Other pulmonary embolism without acute cor pulmonale (2) Pleural effusion: Code(s): J90 - Pleural effusion, not elsewhere classified Category: Medical Plan The patient will continue on Eliquis apixaban) for anticoagulation therapy to manage the deep vein thrombosis. Referral to a account services manager will be expedited to ensure timely follow-up and management of the condition. Call pullmonology to make appointment. No s/sx of bleeding noted. The patient is advised to monitor symptoms and report any worsening or new symptoms immediately. Patient was informed and verbally consented to the use of an ambient scribe for clinic note documentation during this visit.
== END 2024-10-27 15:44 | disposition home or self-care (01) ==
LOC: HO.HMCH 14:09
DX: I26.99 Other pulmonary embolism without acute cor pulmonale (principal); J90 Pleural effusion, not elsewhere classified

== ENCOUNTER → 2024-10-27 14:08 | Outpatient (BNVA) | payer MEDICARE, SELFPAY | DX: J90 Pleural effusion, not elsewhere classified (principal); I26.99 Other pulmonary embolism without acute cor pulmonale; Z79.01 Long term (current) use of anticoagulants | CPT/HCPCS: 96127; 99212 ==

== ENCOUNTER 2024-11-14 06:08 | Outpatient (REF) | payer MEDICARE, SELFPAY ==
--- OUTSIDE RECORDS SUMMARY | 2024-11-14 06:10 | XMS_ITS | Patient Health Record ---
Author Organization [facility] Address [address] [place] [phone] Care Team Providers Care Thread Roller Name Role Phone Mike Phelps N.P. Primary Care Provider Hai Hernandez Jr Unavailable [phone] Allergies No Known Allergies Results Component Value Reference Range Notes Pathology Reviewed date:04/21/2024 07:50:38 AM Interpretation: Performing Lab:[facility], [address] [place] [phone] Notes/Report: Pathology Reviewed date:07/01/2024 01:48:46 PM Interpretation: Performing Lab:[facility], [address] [place] [phone] Notes/Report: Reason For Referral No Information Medications [...] duodenal ulcer without hemorrhage AND without perforation (79782639) Chronic duodenal ulcer without hemorrhage or perforation (K26.7) Active confirmed Problem Adult hypertrophic pyloric stenosis (220490087) Adult hypertrophic pyloric stenosis (K31.1) Active confirmed Problem Erosive esophagitis (83927769) Erosive esophagitis (K22.10) Active confirmed Problem 46435729 Duodenal ulcer (K26.9) Active confirmed Problem 376315699 H. pylori infection (A04.8) Active confirmed Problem Colon cancer screening declined (60601941793698) Colon cancer screening declined (Z53.20) Active confirmed Problem 711184405 Gastric outlet obstruction (K31.1) Active confirmed Vital Signs Blood pressure diastolic 77 mm Hg 09/22/2024 Height 72 in 09/22/2024 Blood pressure systolic 111 mm Hg 09/22/2024 Weight 151 lbs 09/22/2024 BMI 20.48 kg/m2 09/22/2024 Encounters Encounter Location Date Provider Diagnosis [facility] Outpatient [address] [place] [id number] 06/28/2024 Hai Hudson Jr Acute duodenal ulcer without hemorrhage or perforation K26.3 and Erosive esophagitis K22.10 [facility] [address] [address] 09/22/2024 Hai Hudson Jr Duodenal ulcer K26.9 ; Erosive esophagitis K22.10 ; H. pylori infection A04.8 and Colon cancer screening declined Z53.20 [facility] [address] [address] 04/20/2024 Hai Hudson Jr Duodenal ulcer K26.9 ; Gastric outlet obstruction K31.1 and H. pylori infection A04.8 [facility] [address] [address] 07/01/2024 Hai Hudson Jr [facility] [address] 09/22/2024 Hai Hudson Jr Assessments Encounter Date Diagnosis [...] End Date A[employer] (No Referral) [address] [place] [id number] RAJIV KO Self - patient is the insured 4 [facility]ICAID [facility] [address] [place] [address] [id number] RAJIV KO Self - patient is the insured Medical (General) History Medical History History ICD Code Duodenal ulcer with gastric outlet obstruction 04/16, follow-up endoscopy 07/15, completely healed ulcer, biopsies showed no H. pylori or Cano's esophagus H. pylori infection resolved BPH with elevated PSA Low vitamin D Surgical History Surgery Date(Month/Year) hernia repair
[2024-11-14 08:07] LABS: PSA,Total (Free>4and<10) 8.28 ng/mL (0.00-4.00)
[2024-11-15 13:09] LABS: Free Prostate Spec Ag 1.5 ng/mL; Percent Free Prostate Spec Ag 21 % (calc) (>25)
== END 2024-11-14 06:09 | disposition home or self-care (01) ==
LOC: HO.LAB 06:08
PROVIDERS: Visit Provider Nurse Practitioner Family
DX: I26.99 Other pulmonary embolism without acute cor pulmonale (principal); R97.20 Elevated prostate specific antigen [PSA]; Z12.5 Encounter for screening for malignant neoplasm of prostate; Z79.01 Long term (current) use of anticoagulants
CPT/HCPCS: 36415; 84153; 84154; 99212

== ENCOUNTER 2024-11-14 14:46 | Outpatient (AMB) | payer MEDICARE, MEDICAID, SELFPAY ==
--- OUTSIDE RECORDS SUMMARY | 2024-06-28 04:20 | XMS_ITS ---
Author Organization [facility] Address [address] [place] [phone] Care Team Providers Care Pacu Rn Name Role Phone Mike Phelps N.P. Primary Care Provider Hai Hernandez Jr Unavailable REASON FOR VISIT h.pylori,gastric outlet obstruction Encounters Encounter Location Date Provider Diagnosis [facility] [place] Out[place] [address] [place] [id number] 06/28/2024 Hai Hudson Jr Acute duodenal ulcer without hemorrhage or perforation K26.3 and Erosive esophagitis K22.10 Assessments Encounter Date Diagnosis (ICD Code) Assessment Notes Treatment Notes Treatment Clinical Notes Section Notes 06/28/2024 Acute duodenal ulcer without hemorrhage or perforation (ICD-10 - K26.3) 06/28/2024 Erosive esophagitis (ICD-10 - K22.10) Plan Of Treatment No Information Progress Notes * CHEYMACIENILESH VALDESDARIANDOB:[birth year] (74 yo M)Acc No.[id number]:06/28/2024 EGD/MAC Patient: RAJIV MCCOLLUM Provider: Effie Hudson MD :1950 A ge:73 Y S ex:Male Date:06/28/2024 Address:[address] [place], [place] [phone] Pcp:Mike Phelps N.P. Subjective: * Chief Complaints: [...] 0 06/28/2024 Generated for Autumn garcia/Vidya/Dylanitting on: 0 11/14/2024 04:29 PM EDT
[2024-11-14 14:56] VITALS: BP 108/60; PULSE 73; O2SAT 97; BMI 20.7
--- NOTE | 2024-11-14 14:56 | MHC.OFFVIS ---
Vital Signs 11/14/24 14:56 Height 6 ft Weight 153 lb BMI 20.7 BP 108/60 Blood Pressure Location Rt brachial Position Sitting Pulse 73 Pulse Source Pulse Oximeter Pulse Oximetry (%) 97 Oxygen Delivery Method Room Air Intake Visit Reasons: Pleural Effusion/Pulmonary Infarct Allergies No Known Allergies Allergy (Verified 11/14/24 15:01) HPI HPI Pleural Effusion/Pulmonary Infarct: Details: 74-year-old gentleman with recent DVT/PE with pulmonary infarct and related dyspnea requiring hospitalization, now on Eliquis with returned to baseline functional status. Patient also with underlying family history of blood clots in remote blood clot over 15 years prior. [facility] Medical History Hearing loss GERD (gastroesophageal reflux disease) BPH (benign prostatic hyperplasia) Gastric outlet obstruction Surgical History History of esophagogastroduodenoscopy (EGD) History of facial surgery History of hernia surgery Family History Mother Hypertension Diabetes Father No problems noted. Social History Household Members: Family and Children Housing: Apartment Are you a primary dog day care attendant to a significant other at home: No Do you presently have visiting nurse or other home services: No Alcohol intake: never Patient Tobacco Use Status: Never used Tobacco e-Cigarette/Vaping Use: Never Used service: No Current occupational status: retired Cognitive needs: No Hearing needs: Yes Vision needs: No Review of Systems Const Denies daytime sleepiness, Denies excessive sweating, Denies fatigue, Denies fever(s), Denies lethargy, Denies malaise, Denies night sweats, Denies snoring and Denies weight loss Eyes Denies blurry vision and Denies itchy eyes ENT Denies nasal congestion, Denies post nasal drip, Denies sinus pain, Denies sinus pressure and Denies other ( Thrush) Card Denies chest pain, Denies pedal edema, Denies dyspnea, Denies orthopnea and Denies paroxysmal nocturnal dyspnea Resp Denies cough, Denies hemoptysis, Denies excessive phlegm production, Denies dyspnea, Denies snoring and Denies wheezing GI Denies abdominal pain and Denies heartburn Musc Denies myalgias, Denies arthralgias and Denies joint swelling Skin/Breast Denies rash Neuro Denies memory loss and Denies seizure-like activity Psych Denies abnormal sleep pattern, Denies anxiety and Denies memory loss Endo Denies excessive sweating, Denies fatigue and Denies heat intolerance Raphael/Lymph Denies easy bruising Aller/Immun Denies itchy eyes, Denies seasonal rhinorrhea and Denies wheezing Physical Exam Vital Signs: Last Vital Signs Pulse 73 11/14/24 14:56 BP 108/60 11/14/24 14:56 Pulse Ox 97 11/14/24 14:56 Oxygen Delivery Method Room Air 11/14/24 14:56 BMI result Body Mass Index 20.7 Const General: no acute distress and alert Nutritional Appearance: not obese Orientation/consciousness: Other orientation findings ( oriented) HEENT Head: Yes atraumatic Eyes General: appearance normal, both eyes and all related structures Sclerae: sclerae normal EOM: EOMs intact bilaterally Neck Neck: Yes supple Lymphatic: no lymphadenopathy noted Resp Effort & Inspection: normal respiratory effort and no use of accessory muscles Auscultation: clear to auscultation bilaterally Cardio Rate: regular rate Rhythm: regular rhythm Heart sounds: no gallops, no murmurs and no rubs Skin General skin exam: other ( warm) Extrem General: No clubbing, No cyanosis and No edema Assessment & Plan Assessment & Plan (1) Pulmonary emboli: Code(s): I26.99 - Other pulmonary embolism without acute cor pulmonale Category: Medical Qualifiers: Acute cor pulmonale presence: without acute cor pulmonale Chronicity: acute Pulmonary embolism type: unspecified Qualified Code(s): I26.99 - Other pulmonary embolism without acute cor pulmonale Plan: Subacute DVT/PE with pulmonary infarct. Continue Eliquis for 6 months and reassess with D-dimer thereafter. Coding Level of Care Code Est Pt Level 3 (87874) Diagnoses Pulmonary emboli I26.99 Acute cor pulmonale presence: without acute cor pulmonale Chronicity: acute Pulmonary embolism type: unspecified
== END 2024-11-14 15:18 | disposition home or self-care (01) ==
PROVIDERS: Visit Provider Internal Medicine Pulmonary Disease
DX: I26.99 Other pulmonary embolism without acute cor pulmonale (principal)
CPT/HCPCS: 99213

== ENCOUNTER 2024-12-02 13:38 | Outpatient (REF) | payer MEDICARE, MEDICAID, SELFPAY ==
--- OUTSIDE RECORDS SUMMARY | 2024-06-28 04:20 | XMS_ITS ---
Author Organization [facility] Address [address] [place] [phone] Care Team Providers Care Truss Puller Helper Name Role Phone Mike Phelps N.P. Primary Care Provider Hai Hernandez Jr Unavailable REASON FOR VISIT h.pylori,gastric outlet obstruction Encounters Encounter Location Date Provider Diagnosis [facility] [place] [address] [place] [id number] 06/28/2024 Hai Hudson Jr Acute duodenal ulcer without hemorrhage or perforation K26.3 and Erosive esophagitis K22.10 Assessments Encounter Date Diagnosis (ICD Code) Assessment Notes Treatment Notes Treatment Clinical Notes Section Notes 06/28/2024 Acute duodenal ulcer without hemorrhage or perforation (ICD-10 - K26.3) 06/28/2024 Erosive esophagitis (ICD-10 - K22.10) Plan Of Treatment No Information Progress Notes * CHEYMACIENILESH VALDESDARIANDOB:[birth year] (74 yo M)Acc No.[id number]:06/28/2024 EGD/MAC Patient: RAJIV MCCOLLUM Provider: Effie Hudson MD :1950 A ge:73 Y S ex:Male Date:06/28/2024 Address:[address] [place], [place] [phone] Pcp:Mike Phelps N.P. Subjective: * Chief Complaints: [...] 06/28/2024 Generated for Autumn garcia/Vidya/Dylanitting on: 0 12/02/2024 04:29 PM EDT
--- NOTE | ~2024-12-02 | US_ITS ---
EXAMINATION: US RETROPERITONEAL COMPLETE (RENAL) CLINICAL INFORMATION: Retention of urine, unspecified.. COMPARISON: None available. TECHNIQUE: Real-time imaging of the kidneys and bladder. FINDINGS: RIGHT KIDNEY: 10 x 4 x 4 cm (SAG x AP x TRV). Volume: 83 cc. Normal echotexture. Normal renal cortical thickness. No hydronephrosis. 2.3 cm lobulated anechoic lesion without septations or nodular component centered in the lower pole. LEFT KIDNEY: 9 x 5 x 4 cm (SAG x AP x TRV). Volume: 97 cc Normal echotexture. Normal renal cortical thickness. No hydronephrosis. No gross solid or cystic lesion. No calculi or focal parenchymal lesions. No hydronephrosis. BLADDER: Fluid-filled. Bilateral ureteral jets are demonstrated. Prevoid bladder volume is 421 mL. Postvoid bladder volume is 316 mL. Heterogeneous prominent prostate gland measures 5.5 x 6 x 4.2 cm and volume: 71 cc. US/US retroperitoneal comp IMPRESSION: 316 cc of residual urine in a post void image. Prostate gland prominent with a volume 71 cc. No hydronephrosis. 2.3 cm cyst, right kidney.. Electronically signed by: Zander Kennedy MD 12/02/2024 03:04 PM EDT
--- OUTSIDE RECORDS SUMMARY | 2024-12-02 16:30 | XMS_ITS | Patient Health Record ---
Author Organization [facility] Address [address] [place] [address] Care Team Providers Care Marketing Database Consultant Name Role Phone Mike Phelps N.P. Primary Care Provider Hai Hernandez Jr Unavailable Allergies No Known Allergies Results Component Value Reference Range Notes Pathology Reviewed date:04/21/2024 07:50:38 AM Interpretation: Performing Lab:[facility], [address] [place] [phone] Notes/Report: Pathology Reviewed date:07/01/2024 01:48:46 PM Interpretation: Performing Lab:[facility], [address] [place] [phone] Notes/Report: Reason For Referral No Information Medications [...] duodenal ulcer without hemorrhage AND without perforation (14167972) Chronic duodenal ulcer without hemorrhage or perforation (K26.7) Active confirmed Problem Adult hypertrophic pyloric stenosis (482053118) Adult hypertrophic pyloric stenosis (K31.1) Active confirmed Problem Erosive esophagitis (58572840) Erosive esophagitis (K22.10) Active confirmed Problem 41185318 Duodenal ulcer (K26.9) Active confirmed Problem 423772070 H. pylori infection (A04.8) Active confirmed Problem Colon cancer screening declined (62016457552846) Colon cancer screening declined (Z53.20) Active confirmed Problem 301156442 Gastric outlet obstruction (K31.1) Active confirmed Vital Signs Blood pressure diastolic 77 mm Hg 09/22/2024 Height 72 in 09/22/2024 Blood pressure systolic 111 mm Hg 09/22/2024 Weight 151 lbs 09/22/2024 BMI 20.48 kg/m2 09/22/2024 Encounters Encounter Location Date Provider Diagnosis [facility] Outpatient [address] [place] [id number] 06/28/2024 Hai Hudson Jr Acute duodenal ulcer without hemorrhage or perforation K26.3 and Erosive esophagitis K22.10 [facility] [address] [address] 09/22/2024 Hai Hudson Jr Duodenal ulcer K26.9 ; Erosive esophagitis K22.10 ; H. pylori infection A04.8 and Colon cancer screening declined Z53.20 [facility] [address] [address] 04/20/2024 Hai Hudson Jr Duodenal ulcer K26.9 ; Gastric outlet obstruction K31.1 and H. pylori infection A04.8 [facility] [address] [address] 07/01/2024 Hai Hudson Jr [facility] [address] 09/22/2024 Hai Hudson Jr Assessments Encounter Date [...] End Date A[employer] (No Referral) [address] THOMAS AGUERO [id number] RAJIV KO Self - patient is the insured 4 MEDICAID OF [employer] [facility] [address] [place] [address] [phone] [id number] RAJIV KO Self - patient is the insured Medical (General) History Medical History History ICD Code Duodenal ulcer with gastric outlet obstruction 04/16, follow-up endoscopy 07/15, completely healed ulcer, biopsies showed no H. pylori or Cano's esophagus H. pylori infection resolved BPH with elevated PSA Low vitamin D Surgical History Surgery Date(Month/Year) hernia repair
== END 2024-12-02 13:39 | disposition home or self-care (01) ==
LOC: HO.US 13:38
PROVIDERS: Visit Provider Nurse Practitioner Family
DX: R33.9 Retention of urine, unspecified (principal); N32.89 Other specified disorders of bladder; R39.16 Straining to void; R97.20 Elevated prostate specific antigen [PSA]; N40.0 Benign prostatic hyperplasia without lower urinary tract symptoms; N40.1 Benign prostatic hyperplasia with lower urinary tract symptoms
CPT/HCPCS: 76770

== ENCOUNTER → 2024-12-02 13:41 | Outpatient (BNV) | payer MEDICARE, MEDICAID, SELFPAY | PROVIDERS: Visit Provider Radiology Diagnostic Radiology | DX: N28.1 Cyst of kidney, acquired (principal) | CPT/HCPCS: 76770 ==

== ENCOUNTER 2024-12-13 14:31 | Outpatient (AMB) | payer MEDICARE, SELFPAY ==
--- OUTSIDE RECORDS SUMMARY | 2024-06-28 04:20 | XMS_ITS ---
Author Organization [facility] Address [address] [place] [phone] Care Team Providers Care Mobile Sales Assistant Name Role Phone Mike Phelps N.P. Primary Care Provider Hai Hernandez Jr Unavailable REASON FOR VISIT h.pylori,gastric outlet obstruction Encounters Encounter Location Date Provider Diagnosis [facility] [place] Out[place] [address] [place] [id number] 06/28/2024 Hai Hudson Jr Acute duodenal ulcer without hemorrhage or perforation K26.3 and Erosive esophagitis K22.10 Assessments Encounter Date Diagnosis (ICD Code) Assessment Notes Treatment Notes Treatment Clinical Notes Section Notes 06/28/2024 Acute duodenal ulcer without hemorrhage or perforation (ICD-10 - K26.3) 06/28/2024 Erosive esophagitis (ICD-10 - K22.10) Plan Of Treatment No Information Progress Notes * CHEYMACIENILESH VALDESDARIANDOB:[birth year] (74 yo M)Acc No.[id number]:06/28/2024 EGD/MAC Patient: RAJIV MCCOLLUM Provider: Effie Hudson MD :1950 A ge:73 Y S ex:Male Date:06/28/2024 Address:[address] [place], [place] [phone] Pcp:Mike Phelps N.P. Subjective: * Chief Complaints: [...] 06/28/2024 Generated for Autumn garcia/Vidya/Dylanitting on: 0 12/13/2024 05:42 PM EDT
--- NOTE | 2024-12-13 14:37 | MHC.OFFVIS ---
Intake Visit Reasons: 2m/US/PSA/PVR Intake Note: Patient is present for 2M/US/PSA/PVR Urology Medication:TAMSULSOIN Antibiotic Allergy:NONE Blood Thinner:APIXABAN TODAY'S PVR:0ML'S Production Line Operator Required: No Allergies No Known Allergies Allergy (Verified 12/13/24 17:15) Medication List - Last Reconciled 12/13/24 by Viola Evans CLOTH NAPPING SUPERVISOR- apixaban (Eliquis DVT-PE Treat 30D Start) take 2 twice daily until October 19, starting October 20 take 1 tab twice daily apixaban (Eliquis) 5 mg PO BID 30 days tamsulosin 0.4 mg PO DAILY 90 days HPI Comments Details: Tomás is a very pleasant 73-year-old male patient of Dr. Phelps. He has a past medical history of GERD, gastric outlet obstruction, and hearing loss. He presents to the office today for a follow up. OF note, patient was seen approximately 2 months ago as a new patient for elevated PSA, enlarged prostate, and incomplete bladder emptying at which time redraw of PSA and retroperitoneal ultrasound were ordered for further assessment evaluation. These results were reviewed and communicated with the patient today. 12/15 bilateral kidneys with no nephrolithiasis or hydronephrosis. Two point 3 cm renal cysts. The bladder is fluid-filled. Bilateral ureteral jets are demonstrated. Postvoid bladder volume 315 mL. Heterogeneous prominent prostate gland measuring approximately 71 mLs. PSAs are as follows: PSA: 07/15 6.6 % free PSA 20%, 08/14 8.2 % free PSA 16%, 11/14 8.3 % free PSA 21% During last office visit EH was performed left-side of the prostate was noted to be boggy right side semi firm however no masses or nodules palpated. PCPT risk calculator results reviewed with the patient today. 76% chance negative prostate biopsy, 15% chance prostate biopsy low-grade prostate cancer, and 9% chance prostate biopsy high-grade prostate cancer. We did discuss further interventions to include prostate biopsy verses MRI of the prostate verses initiation of finasteride versus surveillance monitoring. Risks and benefits of these interventions were discussed. He does feel tamsulosin has been helpful with increased in urinary stream. We discussed initial postvoid residual as well as postvoid residual during imaging. In office urinalysis results reviewed with the patient today. PVR today 0ml's. When asked he denies any known family history of prostate cancer. All questions were answered. He denies incontinence, hematuria, foul smelling urine, flank pain, fever, and or chills. He otherwise offers no other issues or concerns at this time. [facility] Medical History Hearing loss GERD (gastroesophageal reflux disease) BPH (benign prostatic hyperplasia) Gastric outlet obstruction Surgical History History of esophagogastroduodenoscopy (EGD) History of facial surgery History of hernia surgery Family History Mother Hypertension Diabetes Father No problems noted. Social History Household Members: Family and Children Housing: Apartment Are you a primary animal care attendant to a significant other at home: No Do you presently have visiting nurse or other home services: No Alcohol intake: never Patient Tobacco Use Status: Never used Tobacco e-Cigarette/Vaping Use: Never Used service: No Current occupational status: retired Cognitive needs: No Hearing needs: Yes Vision needs: No Review of Systems Const All systems reviewed & are unremarkable except as noted in HPI and below Physical Exam Const General: cooperative, comfortable, no acute distress, well developed, alert and awake Nutritional Appearance: thin Orientation/consciousness: patient oriented x3 Limitations: other limitations (Hard of hearing) HEENT Head: Yes normal to inspection, Yes normocephalic and Yes atraumatic Ears: hearing grossly normal bilaterally Eyes General: appearance normal, both eyes and all related structures Neck Neck: Yes normal visual inspection and Yes trachea midline Chest Chest palpation & inspection: normal inspection of the chest Resp Effort & Inspection: normal respiratory effort and able to speak in complete sentences Cardio Rate: regular rate GI Inspection: Yes normal to inspection General: Yes no CVA tenderness Back/Spine/Pelvis Back: no CVA tenderness Skin General skin exam: no rashes or lesions noted Neuro General: patient oriented x3 Extrem General: Yes normal to inspection Psych Appearance: grossly normal and well kempt Mental Status: mental status grossly normal Speech and movement: Normal speech and movement present and Clear speech present Affect: normal affect Attitude: cooperative Thought process: Normal thought process present Thought content: Normal thought content present Insight: Fair insight present (Psych) Judgement: Fair judgement present (Psych) Office Procedures Post Void Residual Post Residual Void Post Void Residual (PVR): 0 [id number] Void Residual by ultrasound Results AMB Urinalysis, Automated UA Leukoctes 0 Carter/uL Last Edit by DESTINY Cabezas on 12/13/24 14:49 UA Nitrite Negative Last Edit by Shaina Rehman [facility] on 12/13/24 14:49 UA Urobilinogen 0.2 mg/dL Last Edit by Shaina Rehman [facility] on 12/13/24 14:49 UA Protein 0 mg/dL Last Edit by Shaina Rehman [facility] on 12/13/24 14:49 UA pH 7.0 Last Edit by Shaina Rehman [facility] on 12/13/24 14:49 UA Blood 0 Jhonatan/uL Last Edit by Shaina Rehman [facility] on 12/13/24 14:49 UA Specific [place] 1.010 Last Edit by Shaina Rehman [facility] on 12/13/24 14:49 UA Ketone Negative Last Edit by Shaina Rehman [facility] on 12/13/24 14:49 UA Bilirubin 0 mg/dL Last Edit by Shaina Rehman [facility] on 12/13/24 14:49 UA Glucose 0 mg/dL Last Edit by Shaina Rehman [facility] on 12/13/24 14:49 Results Reviewed Results Reviewed: Laboratory Last Values Urine pH (Auto) 7.0 12/13/24 14:42 Specific [place] (Auto) 1.010 12/13/24 14:42 Urine Protein (Auto) 0 mg/dL 12/13/24 14:42 Glucose (UA)(Auto) 0 mg/dL 12/13/24 14:42 Urine Ketones (Auto) Negative 12/13/24 14:42 Urine Blood (Auto) 0 Jhonatan/uL 12/13/24 14:42 Urine Nitrite (Auto) Negative 12/13/24 14:42 Urine Bilirubin (Auto) 0 mg/dL 12/13/24 14:42 Urine Urobilinogen (Auto) 0.2 mg/dL 12/13/24 14:42 Leukocyte Esterase (Auto) 0 Carter/uL 12/13/24 14:42 Date of Service: 12/02/24 Procedure(s): US retroperitoneal comp FINDINGS: RIGHT KIDNEY: 10 x 4 x 4 cm (SAG x AP x TRV). Volume: 83 cc. Normal echotexture. Normal renal cortical thickness. No hydronephrosis. 2.3 cm lobulated anechoic lesion without septations or nodular component centered in the lower pole. LEFT KIDNEY: 9 x 5 x 4 cm (SAG x AP x TRV). Volume: 97 cc Normal echotexture. Normal renal cortical thickness. No hydronephrosis. No gross solid or cystic lesion. No calculi or focal parenchymal lesions. No hydronephrosis. BLADDER: Fluid-filled. Bilateral ureteral jets are demonstrated. Prevoid bladder volume is 421 mL. Postvoid bladder volume is 316 mL. Heterogeneous prominent prostate gland measures 5.5 x 6 x 4.2 cm and volume: 71 cc. IMPRESSION: 316 cc of residual urine in a post void image. Prostate gland prominent with a volume 71 cc. No hydronephrosis. 2.3 cm cyst, right kidney.. Assessment & Plan Assessment & Plan (1) Incomplete bladder emptying: Code(s): R33.9 - Retention of urine, unspecified Category: Medical (2) Bladder wall thickening: Code(s): N32.89 - Other specified disorders of bladder Category: Medical (3) BPH (benign prostatic hyperplasia): Code(s): N40.0 - Benign prostatic hyperplasia without lower urinary tract symptoms Category: Medical Qualifiers: Lower urinary tract symptom presence: symptoms present Lower urinary tract symptom detail: straining on urination Qualified Code(s): N40.1 - Benign prostatic hyperplasia with lower urinary tract symptoms; R39.16 - Straining to void (4) Elevated PSA: Code(s): R97.20 - Elevated prostate specific antigen [PSA] Category: Medical (5) Enlarged prostate: Code(s): N40.0 - Benign prostatic hyperplasia without lower urinary tract symptoms Category: Medical (6) Renal cyst: Code(s): N28.1 - Cyst of kidney, acquired Category: Medical Plan In office urinalysis results reviewed with the patient today; as noted above. PVR 0 mL. Continue Flomax. Recent retroperitoneal ultrasound results reviewed with the patient today; as noted above. Recent PSA results reviewed with the patient today; as noted above. PCP T risk calculator results reviewed with the patient today; as noted above. We did discussed at length potential causes of elevated PSA as well as further treatment options and risks and benefits of these treatment options. All questions were answered. We discussed attempting to double void to assist with bladder emptying. Start finasteride as discussed and prescribed. Will obtain PSA in 4 months. Follow-up in 4 months with PSA and PVR; or sooner with any issues officers, and or questions. Orders: Orders AMB Urinalysis Automated Today Z13.9 - Encounter for screening, unspecified PSA,Total (Free>4and<10) 4 Months R97.20 - Elevated prostate specific antigen [PSA] Medications: New finasteride 5 mg PO DAILY 90 tabs 1RF 90 days N13.8 - Other obstructive and reflux uropathy, N40.1 - Benign prostatic hyperplasia with lower urinary tract symptoms, R33.9 - Retention of urine, unspecified Refilled tamsulosin 0.4 mg PO DAILY 90 caps 1RF 90 days Patient Instructions: The patient had an opportunity to ask questions regarding the treatment plan. All questions were answered. Physical exam, labs, and imaging were discussed and reviewed in detail. As well as risks, benefits, and discussion of treatment choices. No major barriers to understanding were identified. The patient expressed understanding and agreement with the above treatment plan. The patient was made aware they should contact our office by phone for worsening of their current condition, the appearance of new symptoms, or with any questions or concerns. Compliance is encouraged with any medications and follow up testing that is ordered. It is a privilege to be allowed the opportunity to participate in? your urological care.? Again, if you have any questions or concerns If you have any questions or concerns please do not hesitate to contact me. The office is [phone]. This note is constructed using voice recognition software. While every effort has been made to ensure accuracy apron trimmer errors may have been included. Yours sincerely, VALERIY Jacob Coding Level of Care Code Est Pt Level 4 (41063) Complex EM visit Add On G2211 Diagnoses Incomplete bladder emptying R33.9 Bladder wall thickening N32.89 Benign prostatic hyperplasia (BPH) with straining on urination N40.1; R39.16 Lower urinary tract symptom presence: symptoms present Lower urinary tract symptom detail: straining on urination Elevated PSA R97.20 Enlarged prostate N40.0 Renal cyst N28.1 CPT Codes Post Residual Void - PVR CPT Code: 31418-[id number] Void Residual by ultrasound ([id number])
--- OUTSIDE RECORDS SUMMARY | 2024-12-13 17:43 | XMS_ITS | Patient Health Record ---
Author Organization [facility] Address [address] [place] [address] Care Team Providers Care Starch Crab Name Role Phone Mike Phelps N.P. Primary Care Provider Hai Hernandez Jr Unavailable Allergies No Known Allergies Results Component Value Reference Range Notes Pathology Reviewed date:04/21/2024 07:50:38 AM Interpretation: Performing Lab:[facility], [address] [place] [phone] Notes/Report: Pathology Reviewed date:07/01/2024 01:48:46 PM Interpretation: Performing Lab:[facility], [address] [place] [phone] Notes/Report: Reason For Referral No Information Medications [...] duodenal ulcer without hemorrhage AND without perforation (10826625) Chronic duodenal ulcer without hemorrhage or perforation (K26.7) Active confirmed Problem Adult hypertrophic pyloric stenosis (904304090) 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 pylori infection (A04.8) Active confirmed Problem Colon cancer screening declined (06805586913002) Colon cancer screening declined (Z53.20) Active confirmed Problem 240438555 Gastric outlet obstruction (K31.1) Active confirmed Vital Signs Blood pressure diastolic 77 mm Hg 09/22/2024 Height 72 in 09/22/2024 Blood pressure systolic 111 mm Hg 09/22/2024 Weight 151 lbs 09/22/2024 BMI 20.48 kg/m2 09/22/2024 Encounters Encounter Location Date Provider Diagnosis [facility] [address] [place] [id number] 06/28/2024 Hai Hudson Jr Acute duodenal ulcer without hemorrhage or perforation K26.3 and Erosive esophagitis K22.10 [facility] [address] [address] 09/22/2024 Hai Hudson Jr Duodenal ulcer K26.9 ; Erosive esophagitis K22.10 ; H. pylori infection A04.8 and Colon cancer screening declined Z53.20 [facility] [address] [address] 04/20/2024 Hai Hudson Jr Duodenal ulcer K26.9 ; Gastric outlet obstruction K31.1 and H. pylori infection A04.8 [facility] [address] [address] 07/01/2024 Hai Hudson Jr [facility] [address] 09/22/2024 Hai Hudson Jr Assessments Encounter Date [...] End Date A[employer] (No Referral) [address] THOMAS AGUERO [id number] RAJIV KO Self - patient is the insured 4 MEDICAID OF [facility] [address] [place] [address] [id number] RAJIV KO Self - patient is the insured Medical (General) History Medical History History ICD Code Duodenal ulcer with gastric outlet obstruction 04/16, follow-up endoscopy 07/15, completely healed ulcer, biopsies showed no H. pylori or Cano's esophagus H. pylori infection resolved BPH with elevated PSA Low vitamin D Surgical History Surgery Date(Month/Year) hernia repair
== END 2024-12-13 15:09 | disposition home or self-care (01) ==
LOC: HO.HUSH 14:31
PROVIDERS: Visit Provider Nurse Practitioner Family
DX: R33.9 Retention of urine, unspecified (principal); N32.89 Other specified disorders of bladder; N40.1 Benign prostatic hyperplasia with lower urinary tract symptoms; R39.16 Straining to void; R97.20 Elevated prostate specific antigen [PSA]; N40.0 Benign prostatic hyperplasia without lower urinary tract symptoms; N28.1 Cyst of kidney, acquired; Z13.9 Encounter for screening, unspecified
CPT/HCPCS: 99214; G2211

== ENCOUNTER → 2024-12-13 14:31 | Outpatient (BNVA) | payer MEDICARE, SELFPAY | PROVIDERS: Visit Provider Nurse Practitioner Family | DX: N40.1 Benign prostatic hyperplasia with lower urinary tract symptoms (principal); R33.9 Retention of urine, unspecified; R39.16 Straining to void; N32.89 Other specified disorders of bladder; R97.20 Elevated prostate specific antigen [PSA]; N28.1 Cyst of kidney, acquired | CPT/HCPCS: 51798; 81003; 99212 ==

== ENCOUNTER 2025-02-03 06:08 | Outpatient (REF) | payer MEDICARE, OTHER, SELFPAY ==
--- OUTSIDE RECORDS SUMMARY | 2024-06-28 03:20 | XMS_ITS ---
Author Organization [facility] Address [address] [place] [phone] Care Team Providers Care Medical Assistant Dermatology Name Role Phone Mike Phelps N.P. Primary Care Provider Hai Hernandez Jr Unavailable [phone] REASON FOR VISIT h.pylori,gastric outlet obstruction Encounters Encounter Location Date Provider Diagnosis [facility] [place] [address] [place] [id number] 06/28/2024 Hai Hudson Jr Acute duodenal ulcer without hemorrhage or perforation K26.3 and Erosive esophagitis K22.10 Assessments Encounter Date Diagnosis (ICD Code) Assessment Notes Treatment Notes Treatment Clinical Notes Section Notes 06/28/2024 Acute duodenal ulcer without hemorrhage or perforation (ICD-10 - K26.3) 06/28/2024 Erosive esophagitis (ICD-10 - K22.10) Plan Of Treatment No Information Progress Notes * CHEYMACIENILESH VALDESDARIANDOB:10[birth year] (74 yo M)Acc No.[id number]:06/28/2024 EGD/MAC Patient: RAJIV MCCOLLUM Provider: Effie Hudson MD :1950 A ge:73 Y S ex:Male Date:06/28/2024 Address:[address] [place], [place] [id number] Pcp:Mike Phelps N.P. Subjective: * Chief Complaints: * 1 . H.pylori,gastric outlet obstruction. * Medical History: Objective: * Vitals: Assessment: * Assessment: 1. A cute duodenal ulcer without hemorrhage or perforation - K26.3 (Primary) 2 . E rosive esophagitis - K22.10 Plan: * Treatment: * Procedure Codes: 4 3239 UPPER GI ENDOSCOPY, BIOPSY * * The named appointment provid er may or may not be the originator of this progress note, and it is not deemed complete until electronically signed by the appointment provider. Sign off status: Pending * Provider: Effie Hudson MD Date: 0 06/28/2024 Generated for Autumn garcia/Vidya/Dylanitting on: 04/05/2024 06:11 AM EST
--- OUTSIDE RECORDS SUMMARY | 2025-02-03 06:11 | XMS_ITS | Patient Health Record ---
Author Organization [facility] Address [address] [place] [address] Care Team Providers Care Rattle Leak And Squeak Repairer Name Role Phone Mike Phelps N.P. Primary Care Provider Hai Hernandez Jr Unavailable Allergies No Known Allergies Results Component Value Reference Range Notes Pathology Reviewed date:04/21/2024 07:50:38 AM Interpretation: Performing Lab:[facility], [address] [place] [phone] Notes/Report: Pathology Reviewed date:07/01/2024 01:48:46 PM Interpretation: Performing Lab:[facility], [address] [place] [phone] Notes/Report: Reason For Referral No Information Medications [...] duodenal ulcer without hemorrhage AND without perforation (48310454) Chronic duodenal ulcer without hemorrhage or perforation (K26.7) Active confirmed Problem Adult hypertrophic pyloric stenosis (786533875) 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 pylori infection (A04.8) Active confirmed Problem Colon cancer screening declined (93033566740015) Colon cancer screening declined (Z53.20) Active confirmed Problem Acquired hypertrophic pyloric stenosis (94372239) Gastric outlet obstruction (K31.1) Active confirmed Vital Signs Blood pressure diastolic 77 mm Hg 09/22/2024 Height 72 in 09/22/2024 Blood pressure systolic 111 mm Hg 09/22/2024 Weight 151 lbs 09/22/2024 BMI 20.48 kg/m2 09/22/2024 Encounters Encounter Location Date Provider Diagnosis [facility] [place] [address] [place] [id number] 06/28/2024 Hai Hudson Jr Acute duodenal ulcer without hemorrhage or perforation K26.3 and Erosive esophagitis K22.10 [facility] [address] [address] 09/22/2024 Hai Hudson Jr Duodenal ulcer K26.9 ; Erosive esophagitis K22.10 ; H. pylori infection A04.8 and Colon cancer screening declined Z53.20 [facility] [address] [address] 04/20/2024 Hai Hudson Jr Duodenal ulcer K26.9 ; Gastric outlet obstruction K31.1 and H. pylori infection A04.8 [facility] [address] [address] 07/01/2024 Hai Hudson Jr [facility] [address] [address] 09/22/2024 Hai Hudson Jr Assessments Encounter Date [...] End Date [employer] (No Referral) [address] [place] [id number] RAJIV KO Self - patient is the insured [address] [facility] [address] [place] [id number] [employer] LUCIORAJIV Self - patient is the insured Medical (General) History Medical History History ICD Code Duodenal ulcer with gastric outlet obstruction 04/16, follow-up endoscopy 07/15, completely healed ulcer, biopsies showed no H. pylori or Cano's esophagus H. pylori infection resolved BPH with elevated PSA Low vitamin D Surgical History Surgery Date(Month/Year) hernia repair
[2025-02-03 10:16] LABS: MANUAL DIFF FLAG NO
[2025-02-03 10:33] LABS: Hematocrit 41.5 % (42.0-52.0); Hemoglobin 13.7 g/dl (14.0-18.0); Imm Gran Abs Auto 0.02 X10*3/uL (0.00-0.03); Imm Gran Pct Auto 0.4 % (0.0-0.4); Lymphocytes Absolute Auto 1.8 X10*3/uL (1.2-4.9); Mean Corpuscular HGB Conc 33.0 g/dl (31.0-36.0); Mean Corpuscular Hemoglobin 28.4 pg (27.0-33.0); Mean Corpuscular Volume 85.9 fL (80.0-98.0); NRBC Abs Auto 0.000 X10*3/uL (0.0-0.012); NRBC Pct Auto 0.0 /100WBC (0.0-0.2); Platelet Count 161 X10*3/uL (160-400); Red Blood Count 4.83 X10*6/uL (4.60-5.80); White Blood Count 4.6 X10*3/uL (4.8-10.8)
[2025-02-03 10:44] LABS: Appearance Urine Clear; Glucose Urine UA Negative (Negative); PH 7.0 (5.0-9.0); Specific Gravity - Urine <= 1.005 (1.005-1.025)
== END 2025-02-03 06:09 | disposition home or self-care (01) ==
LOC: HO.HMGCLDS 06:08
DX: D64.9 Anemia, unspecified (principal); E55.9 Vitamin D deficiency, unspecified
CPT/HCPCS: 36415; 81003; 82306; 85025

== ENCOUNTER 2025-02-10 08:24 | Outpatient (AMB) | payer MEDICARE, MEDICAID, SELFPAY ==
--- OUTSIDE RECORDS SUMMARY | 2024-06-28 03:20 | XMS_ITS ---
Author Organization [facility] Address [address] [place] [address] Care Team Providers Care Coater Brake Linings Name Role Phone Mike Phelps N.P. Primary Care Provider Hai Hernandez Jr Unavailable [phone] REASON FOR VISIT h.pylori,gastric outlet obstruction Encounters Encounter Location Date Provider Diagnosis [facility] [place] Out[place] [address] [place] [id number] 06/28/2024 Hai Hudson Jr Acute duodenal ulcer without hemorrhage or perforation K26.3 and Erosive esophagitis K22.10 Assessments Encounter Date Diagnosis (ICD Code) Assessment Notes Treatment Notes Treatment Clinical Notes Section Notes 06/28/2024 Acute duodenal ulcer without hemorrhage or perforation (ICD-10 - K26.3) 06/28/2024 Erosive esophagitis (ICD-10 - K22.10) Plan Of Treatment No Information Progress Notes * CHYEMACIELUCIORAJIVDOB:[birth year] (74 yo M)Acc No.[id number]:06/28/2024 EGD/MAC Patient: RAJIV MCCOLLUM Provider: Effie Hudson MD :1950 A ge:73 Y S ex:Male Date:06/28/2024 Address:[address] [place], [place] [id number] Pcp:Mike Phelps N.P. Subjective: * Chief Complaints: * H .pylori,gastric outlet obstruction Assessment: * Assessment: 1. A cute duodenal ulcer without hemorrhage or perforation - K26.3 (Primary) 2 . E rosive esophagitis - K22.10 Plan: * Procedure Codes: 4 3239 UPPER GI ENDOSCOPY, BIOPSY Billing Information: * Procedure Codes: 57157 UPPER GI ENDOSCOPY, BIOPSY. * The named appointment provid er may or may not be the originator of this progress note, and it is not deemed complete until electronically signed by the appointment provider. Sign off status: Pending * Provider: Effie Hudson MD Date: 0 06/28/2024 Generated for Autumn garcia/Vidya/Dylanitting on: 04/12/2024 08:27 AM EST
--- OUTSIDE RECORDS SUMMARY | 2025-02-10 08:27 | XMS_ITS | Patient Health Record ---
Author Organization [facility] Address [address] [place] [address] Care Team Providers Care Microsoft Solutions Architect Name Role Phone Mike Phelps N.P. Primary Care Provider Hai Hernandez Jr Unavailable Allergies No Known Allergies Results Component Value Reference Range Notes Pathology Reviewed date:04/21/2024 07:50:38 AM Interpretation: Performing Lab:[facility], [address] [place] [phone] Notes/Report: Pathology Reviewed date:07/01/2024 01:48:46 PM Interpretation: Performing Lab:[facility], [address] [place] [phone] Notes/Report: Reason For Referral No Information Medications Medication SIG (Take, Route, Fr equency, Duration) Notes Start Date End Date Status Omeprazole Active Tamsulosin HCl Activ e Social History Tobacco Use: Social History Observation Description Date Details (start date - stop date) Never Smoker NA - NA Social History Drug/Alcohol: Social Info Question Answer Notes AUDIT-C (Standard) Did you have a drink containing alcohol in the past year? 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 pylori infection (A04.8) Active confirmed Problem Colon cancer screening declined (97581963257135) Colon cancer screening declined (Z53.20) Active confirmed Problem Acquired hypertrophic pyloric stenosis (93063342) Gastric outlet obstruction (K31.1) Active confirmed Vital Signs Blood pressure diastolic 77 mm Hg 09/22/2024 Height 72 in 09/22/2024 Blood pressure systolic 111 mm Hg 09/22/2024 Weight 151 lbs 09/22/2024 BMI 20.48 kg/m2 09/22/2024 Encounters Encounter Location Date Provider Diagnosis [facility] [place] [address] [place] [id number] 06/28/2024 Hai Hudson Jr Acute duodenal ulcer without hemorrhage or perforation K26.3 and Erosive esophagitis K22.10 [facility] [address] [place] [address] [address] [place] [phone] 09/22/2024 Hai Hudson Jr Duodenal ulcer K26.9 ; Erosive esophagitis K22.10 ; H. pylori infection A04.8 and Colon cancer screening declined Z53.20 [facility] [address] [place] [address] [place] [phone] 04/20/2024 Hai Hudson Jr Duodenal ulcer K26.9 ; Gastric outlet obstruction K31.1 and H. pylori infection A04.8 [facility] [address] [place] [phone] 07/01/2024 Hai Hudson Jr [facility] [address] [place] [address] [address] 09/22/2024 Hai Hudson Jr Assessments Encounter Date [...] H. pylori infection (ICD-10 - A04.8) 09/22/2024 H. pylori infection (ICD-10 - A04.8) [...] He declines this at this time. 09/22/2024 Colon cancer screening declined (ICD-10 - [...] End Date [employer] (No Referral) [address] THOMAS AGUERO [id number] [facility] RAJIV VALDES Self - patient is the insured 4 MEDICAID OF [facility] [address] [place] [phone] [id number] [facility] RAJIV VALDES Self - patient is the insured Medical (General) History Medical History History ICD Code Duodenal ulcer with gastric outlet obstruction 04/16, follow-up endoscopy 07/15, completely healed ulcer, biopsies showed no H. pylori or Cano's esophagus H. pylori infection resolved BPH with elevated PSA Low vitamin D Surgical History Surgery Date(Month/Year) hernia repair
--- NOTE | 2025-02-10 08:33 | A.OFFPC_ITS ---
Vital Signs 02/10/25 08:34 Height 6 ft Weight 159 lb 6 oz BMI 21.6 BP 120/60 Blood Pressure Location Lt brachial Position Sitting Pulse 67 Pulse Source Pulse Oximeter Temp 97.3 F Temp Source Temporal Artery Scan Pulse Oximetry (%) 98 Oxygen Delivery Method Room Air Intake Visit Reasons: anema/vitamin D deficiency/bph Intake Note: Patient is here to follow up on Anemia, Vit D Deficiency, BPH. Job Interviewer Required: No Security Technician: Not Required per policy Accompanied by: Self / Same As Patient Allergies No Known Allergies Allergy (Verified 02/10/25 08:42) Medication List - Last Reconciled 02/10/25 by SIMBA Garcia apixaban (Eliquis DVT-PE Treat 30D Start) take 2 twice daily until October 19, starting October 20 take 1 tab twice daily apixaban (Eliquis) 5 mg PO BID 30 days finasteride 5 mg PO DAILY 90 days tamsulosin 0.4 mg PO DAILY 90 days Tobacco use date assessed: 02/10/25 Fall risk assessment: No Falls in past year Last assessed Fall Risk: 02/10/25 Dental Screening Dental Screen Date: 10/27/24 HPI HPI Comments History of Present Illness Details History of Present Illness The patient is a 74-year-old individual presenting for a follow-up to review lab results. The patient has a history of anemia, and recent lab work shows improvement, although values remain in the anemic range. The patient's hemoglobin is 13.7, hematocrit is 41.5, and red blood cell count is normal at 4.83. Improved from previous. The patient reports consuming beets, drinking pomegranate juice, and taking an iron supplement to address the anemia. The patient also had a history of low vitamin D and has been taking a supplement daily. Recent labs show a normal vitamin D level of 64.1. The patient is also being followed by urology and reports that a new medication started by that specialist is effective. Health Maintenance - The patient reports dietary intake of beets and pomegranate juice, as well as supplementation with iron for anemia. - The patient takes a daily vitamin D joseph pplement. - The patient reports outdoor activity d uring the summer. Social History - Diet: Reports consuming beets and pome granate juice. - Physical Activity: Reports working out side daily during the summer. Results - Complete Blood Count: Red blood cells 4.83 (normal), Hemoglobin 13.7 (low, but improved), Hematocrit 41.5 (low, but improved). - Vitamin D: 64.1 (normal). [facility] Medical History Hearing loss GERD (gastroesophageal reflux disease) BPH (benign prostatic hyperplasia) Gastric outlet obstruction Surgical History History of esophagogastroduodenoscopy (EGD) History of facial surgery History of hernia surgery Family History Mother Hypertension Diabetes Father No problems noted. Social History Household Members: Family and Children Housing: Apartment Are you a primary respiratory care program director to a significant other at home: No Do you presently have visiting nurse or other home services: No Alcohol intake: never Patient Tobacco Use Status: Never used Tobacco e-Cigarette/Vaping Use: Never Used Second Hand Smoke Exposure: No service: No Current occupational status: retired Cognitive needs: No Hearing needs: Yes Vision needs: No Questionnaire PHQ-9 Over the last 2 weeks, how often have you been bothered by any of the following problems? Depression Screening Interpretation: Negative Depression Screening Done: Yes Source: Developed by Drs. Gume Wellington, Harriet Whatley, Juanpablo Carvajal and colleagues, with an educational lauren from [employer]. Thrive Questionnaire Date Thrive assessed: 10/27/24 I am a: Patient What is your living situation today?: I have a steady place to live Within the past 12 months, did the food you bought not last and you didn't have the money to get more?: I choose not to answer this question Within the past 12 months, did you worry whether your food would run out before you got money to buy more?: I choose not to answer this question Do you have trouble paying for medicines?: I choose not to answer this question Do you have trouble getting transportation to medical appointments?: I choose not to answer this question Do you have trouble paying your heating and electricity bill?: I choose not to answer this question Do you have trouble taking care of your child, family member or friend?: I choose not to answer this question Do you have trouble with day-to-day activities such as bathing, preparing meals, shopping, managing finances, etc.?: I choose not to answer this question Are you currently unemployed and looking for a job?: I choose not to answer this question Are you interested in more education?: I choose not to answer this question Please select the resources that you would like help with: None Currently or been in a relationship where the following occur: I choose not to answer THRIVE Score: 0 AUDIT C Alcohol Use Questionnaire (AUDIT-C) 2. How many drinks containing alcohol do you have on a typical day when you are drinking?: 1 or 2 3. How often do you have six or more drinks on one occasion?: Never Total Score: 0 DOMINGA-7 AMB Questionnaire DOMINGA-7 Date DOMINGA - 7 assessed: 10/27/24 Source: Developed by Drs. Gume Wellington, Harriet Whatley, Juanpablo Carvajal and colleagues, with an educational lauren from [employer]. Review of Systems Narrative Review of Systems - Respiratory: Denies shortness of breath. - Cardiovascular: Denies chest pain. - Gastrointestinal: Denies heartburn. Const Denies body aches, Denies chills, Denies fever(s), Denies headache(s) and Denies poor appetite Eyes Reports no additional complaints ENT Denies dysphagia, Denies dizziness, Denies headache(s) and Denies odynophagia Card Denies chest pain, Denies syncope, Denies edema, Denies irregular heart rhythm, Denies lightheadedness and Denies dyspnea Resp Denies cough and Denies dyspnea GI Denies abdominal pain, Denies constipation, Denies dysphagia, Denies diarrhea, Denies nausea, Denies odynophagia and Denies vomiting Reports no additional complaints Musc Reports no additional complaints and Denies abnormal gait Skin/Breast Reports system reviewed and no additional complaints, except as documented Neuro Denies abnormal gait, Denies dizziness, Denies syncope and Denies headache(s) Psych Reports no additional complaints Physical exam (Primary Care) Vital Signs: Last Vital Signs Temp 97.3 F 02/10/25 08:34 Pulse 67 02/10/25 08:34 BP 120/60 02/10/25 08:34 Pulse Ox 98 02/10/25 08:34 Oxygen Delivery Method Room Air 02/10/25 08:34 BMI result Body Mass Index 21.6 Tobacco/Smoking Status: Tobacco use Status Tobacco use date assessed 02/10/25 02/10/25 08:39 Patient Tobacco Use Status Never used Tobacco 02/10/25 08:39 e-Cigarette/Vaping Use Never Used 02/10/25 08:39 Depression Screening Interpretation: Negative Thrive Assessment: Date of Thrive Assessment Date Thrive assessed 10/27/24 02/10/25 08:39 Currently or been in a relationship where the following occur: I choose not to answer Narrative Physical Exam - Cardiovascular: Auscultation revealed normal heart sounds. - Respiratory: Clear to auscultation bilaterally. Const General: cooperative, healthy appearing, comfortable and no acute distress Orientation/consciousness: patient oriented x3 HENMT Head: Yes normocephalic Ears: hearing grossly normal bilaterally General nose exam: Normal external nose present Eyes General: appearance normal, both eyes and all related structures Conjunctivae: conjunctivae normal Neck Neck: Yes full ROM and Yes no lymphadenopathy Resp Effort & Inspection: normal respiratory effort Auscultation: clear to auscultation bilaterally, no crackles, no rales, no rhonchi and no wheezes Cardio Rate: regular rate Rhythm: regular rhythm Skin General skin exam: no rashes or lesions noted Neuro General: patient oriented x3 Gait exam (Neuro): Normal gait present Extrem General: Yes normal to inspection, Yes full ROM and No edema Psych Affect: normal affect Attitude: cooperative Insight: Good insight present (Psych) Judgement: Good judgement present (Psych) Results Reviewed Results Reviewed: Laboratory Tests 11/14/24 02/03/25 08:07 06:27 WBC 4.6 L RBC 4.83 Hgb 13.7 L Hct 41.5 L MCV 85.9 MCH 28.4 MCHC 33.0 RDW 13.2 Plt Count 161 Free PSA 1.5 % Free PSA 21 L Total PSA (off-site) 7.0 H 25-OH Vitamin D Total 64.1 Urine Color Yellow Urine Appearance Clear Urine pH 7.0 Ur Specific [place] <= 1.005 Urine Protein Negative Urine Glucose (UA) Negative Urine Ketones Negative Urine Blood Negative Urine Nitrite Negative Ur Leukocyte Esterase Negative Coding Level of Care Code Est Pt Level 4 (58119) Diagnoses Anemia, unspecified type D64.9 Anemia type: unspecified type Sensorineural hearing loss (SNHL) of both ears H90.3 Hearing loss type: sensorineural Laterality: bilateral Benign prostatic hyperplasia (BPH) with straining on urination N40.1; R39.16 Lower urinary tract symptom presence: symptoms present Lower urinary tract symptom detail: straining on urination Gastroesophageal reflux disease without esophagitis K21.9 Esophagitis presence: without esophagitis Enlarged prostate N40.0 Pulmonary emboli I26.99 Acute cor pulmonale presence: without acute cor pulmonale Chronicity: acute Pulmonary embolism type: unspecified Vitamin D deficiency E55.9 Time Spent (min) 32 Assessment & Plan Assessment & Plan (1) Anemia: Code(s): D64.9 - Anemia, unspecified Category: Medical Qualifiers: Anemia type: unspecified type Qualified Code(s): D64.9 - Anemia, unspecified Plan: see below (2) Hearing loss: Code(s): H91.90 - Unspecified hearing loss, unspecified ear Category: Medical Qualifiers: Hearing loss type: sensorineural Laterality: bilateral Qualified Code(s): H90.3 - Sensorineural hearing loss, bilateral Plan: For his hearing difficulties, the patient noted substantial hearing loss in both ears, complicating his engagement in noisy settings. Hearing aids were previously prescribed yet discontinued due to adverse effects. He has not yet consulted a specialist to reevaluate and address his auditory condition adequately. Patient reports that he has about 80-90% hearing loss in left ear in about 50% ear in loss in right ear. He was referred to ENT at previous visit. (3) BPH (benign prostatic hyperplasia): Code(s): N40.0 - Benign prostatic hyperplasia without lower urinary tract symptoms Category: Medical Qualifiers: Lower urinary tract symptom presence: symptoms present Lower urinary tract symptom detail: straining on urination Qualified Code(s): N40.1 - Benign prostatic hyperplasia with lower urinary tract symptoms; R39.16 - Straining to void Plan: While the patient was in the hospital he had a CT of his abdomen and pelvis that showed that he had an enlarged prostate. He was started on on Flomax for nocturia. PSA 8.95 the most recent labs. The patient continued to be adamant about not needing to see the specialist. It was able to convince the patient to see Urology on a informational basis to see what his options are. He was referred and evaluated by urology. He started on Finasteride 5 mg daily (4) GERD (gastroesophageal reflux disease): Code(s): K21.9 - Gastro-esophageal reflux disease without esophagitis Category: Medical Qualifiers: Esophagitis presence: without esophagitis Qualified Code(s): K21.9 - Gastro-esophageal reflux disease without esophagitis Plan: Reinforced dietary restrictions Continue omeprazole 40 mg b.i.d. (5) Enlarged prostate: Code(s): N40.0 - Benign prostatic hyperplasia without lower urinary tract symptoms Category: Medical Plan: see below (6) Pulmonary emboli: Code(s): I26.99 - Other pulmonary embolism without acute cor pulmonale Category: Medical Qualifiers: Acute cor pulmonale presence: without acute cor pulmonale Chronicity: acute Pulmonary embolism type: unspecified Qualified Code(s): I26.99 - Other pulmonary embolism without acute cor pulmonale Plan: Patient was diagnosed with bilateral PE and right ventricular strain, shown on CTA. After going into the emergency room for increased shortness of breath. He was started on heparin drip. Chest x-ray showed moderate right-sided pleural effusion. Patient has a history of blood clots 15 years ago and multiple family members have blood clots. Patient was seen by vascular, who reports subsegmental branches right more so than left, and determined that the patient would be best served with anticoagulation alone. Continue Eliquis 5 mg b.i.d. and follow up with Hematology as scheduled. (7) Vitamin D deficiency: Code(s): E55.9 - Vitamin D deficiency, unspecified Category: Medical Plan: Continue vitamin-D supplement OTC Plan Plan Patient was informed and verbally consented to the use of an ambient scribe for clinic note documentation during this visit. 1. Anemia The patient's anemia has shown improvement, with hemoglobin and hematocrit trending upwards, though still below the normal range. This is likely due to the patient's reported dietary changes and iron supplementation. The plan is to continue current management and recheck labs in four months. 2. Vitamin D Deficiency, Unspecified The patient's vitamin D level is now normal (64.1) following daily supplementation. The patient will continue supplementation and be re-evaluated in four months. 3. Encounter For General Adult Medical Examination Without Abnormal Findings The patient is stable and reports feeling well with the new urological medication. A follow-up visit is scheduled in four months to monitor progress and repeat lab work. Discussion Notes I reviewed the recent lab results with the patient, highlighting the improvement in the anemia, with hemoglobin at 13.7 and hematocrit at 41.5. We discussed that while the values are better, they are still in the anemic range. I acknowledged the patient's efforts with diet and iron supplementation. I also informed the patient that the vitamin D level is now normal. The patient expressed satisfaction with a new medication prescribed by urology. We agreed on a follow- up appointment in four months to recheck labs and assess the patient's overall status. Patient Instructions - Continue your current dietary habits, including beets and pomegranate juice, and continue taking your iron supplement as you have been. - Continue taking your vitamin D supplement every day. - Continue the new medication from your urology doctor as it seems to be working well for you. - Please schedule a follow-up appointment in four months to check your progress and repeat your lab work. Orders: Orders Lipid Panel 4 Months D64.9 - Anemia, unspecified, E55.9 - Vitamin D deficiency, unspecified, I26.99 - Other pulmonary embolism without acute cor pulmonale, K21.9 - Gastro-esophageal reflux disease without esophagitis, N40.1 - Benign prostatic hyperplasia with lower urinary tract symptoms, R39.16 - Straining to void, R97.20 - Elevated prostate specific antigen [PSA] Vitamin B12 and Folate 4 Months D64.9 - Anemia, unspecified Complete Blood Count Auto Diff 4 Months D64.9 - Anemia, unspecified, E55.9 - Vitamin D deficiency, unspecified, I26.99 - Other pulmonary embolism without acute cor pulmonale, K21.9 - Gastro-esophageal reflux disease without esoph agitis, N40.1 - Benign prostatic hyperplasia with lower urinary tract symptoms, R39.16 - Straining to void, R97.20 - Elevated prostate specific antigen [PSA] Comprehensive [place]. Panel Fast 4 Months D64.9 - Anemia, unspecified, E55.9 - Vitamin D deficiency, unspecified, I26.99 - Other pulmonary embolism without acute cor pulmonale, K21.9 - Gastro-esophageal reflux disease without esophagitis, N40.1 - Benign prostatic hyperplasia with lower urinary tract symptoms, R39.16 - Straining to void, R97.20 - Elevated prostate specific antigen [PSA] UA CC w/rflx Micro + Cult 4 Months D64.9 - Anemia, unspecified, E55.9 - Vitamin D deficiency, unspecified, I26.99 - Other pulmonary embolism without acute cor pulmonale, K21.9 - Gastro-esophageal reflux disease without esophagitis, N40.1 - Benign prostatic hyperplasia with lower urinary tract symptoms, R39.16 - Straining to void, R97.20 - Elevated prostate specific antigen [PSA] TSH reflex Free T4 4 Months D64.9 - Anemia, unspecified, E55.9 - Vitamin D deficiency, unspecified, I26.99 - Other pulmonary embolism without acute cor pulmonale, K21.9 - Gastro-esophageal reflux disease without esophagitis, N40.1 - Benign prostatic hyperplasia with lower urinary tract symptoms, R39.16 - Straining to void, R97.20 - Elevated prostate specific antigen [PSA] Vitamin D 25-OH Total 4 Months D64.9 - Anemia, unspecified, E55.9 - Vitamin D deficiency, unspecified, I26.99 - Other pulmonary embolism without acute cor pulmonale, K21.9 - Gastro-esophageal reflux disease without esophagitis, N40.1 - Benign prostatic hyperplasia with lower urinary tract symptoms, R39.16 - Straining to void, R97.20 - Elevated prostate specific antigen [PSA] Patient Instructions: Follow up in 4 months
[2025-02-10 08:34] VITALS: BP 120/60; PULSE 67; TEMP 36.3; O2SAT 98; BMI 21.6
== END 2025-02-10 09:01 | disposition home or self-care (01) ==
LOC: HO.HMCH 08:25
DX: D64.9 Anemia, unspecified (principal); H90.3 Sensorineural hearing loss, bilateral; I26.99 Other pulmonary embolism without acute cor pulmonale; N40.1 Benign prostatic hyperplasia with lower urinary tract symptoms; R39.16 Straining to void; K21.9 Gastro-esophageal reflux disease without esophagitis; N40.0 Benign prostatic hyperplasia without lower urinary tract symptoms; E55.9 Vitamin D deficiency, unspecified

== ENCOUNTER → 2025-02-10 08:24 | Outpatient (BNVA) | payer MEDICARE, MEDICAID, SELFPAY | DX: H90.3 Sensorineural hearing loss, bilateral (principal); D64.9 Anemia, unspecified; E55.9 Vitamin D deficiency, unspecified; N40.1 Benign prostatic hyperplasia with lower urinary tract symptoms; R39.16 Straining to void; K21.9 Gastro-esophageal reflux disease without esophagitis; I26.99 Other pulmonary embolism without acute cor pulmonale | CPT/HCPCS: 99212 ==